=== PATIENT | female | born 1970 | race Caucasian/White ===

== ENCOUNTER 2018-06-05 10:25 | Inpatient (IN) | payer SELFPAY ==
[2018-06-05] MEDS ORDERED: Ondansetron INJ* 2 MG/ML VIAL IV ONE (10:47)
[2018-06-05] MEDS ORDERED: Morphine INJ* 2 MG/ML 1 ML SYRINGE (TWO MG - NEW SYRINGE VERSION) IV ONE (10:47)
[2018-06-05] MEDS ORDERED: Morphine VIAL* 4 MG/ML VIAL (1 ml vial) IV PRN (10:47)
[2018-06-05] MEDS ORDERED: NS 0.9% 1000 ML* 3,000 ML IV ONE (10:47)
[2018-06-05] MEDS ORDERED: Morphine INJ* 4 MG/ML 1 ML SYRINGE (NEW SYRINGE VERSION) ONE ×2 (10:53→13:45)
--- NOTE | 2018-06-05 10:53 | ED ---
Abdominal Pain/Female - HPI Summary HPI Summary: The pt is a 47 y/o female presenting to [facility] c/o abd pain since 1 day ago worsened today. The constant pain rated 6/10 in severity feels like "like being hit by a bat and radiates to the back. The pt had a positive home test 1 week and went to [facility]. There, they administered 2 tests and found a miscarriage. The pain is aggravated by laying down , sleeping and sitting. She notes vomiting, loss of appetite, fatigue, dyspnea, productive cough, phlegm, sore throat, lightheadedness, dehydration, numbness in the RLE toes and a hardness to palpation in the R breast (hx of breast implants for 15 years). She also reports axillary pain 6 weeks ago that radiates from the fingers but denies diarrhea. - History of Current Complaint Chief Complaint: EDChestPainROMI Stated Complaint: ABD PAIN/BACK PAIN Time Seen by Provider: 06/05/18 10:40 Hx Obtained From: Patient Hx Last Menstrual Period: 3.5 weeks ago Onset/Duration: Lasting Days - 1 day, Still Present, Worse Since - Today morning Timing: Constant Severity Currently: Moderate Pain Intensity: 6 Pain Scale Used: 0-10 Numeric Location: Discrete At: RLQ Radiates: Yes Radiates to: Back Aggravating Factor(s): Other: - laying down, sitting and sleeping Allergies/Adverse Reactions: Allergies Allergy/AdvReac Type Severity Reaction Status Date / Time ibuprofen Allergy Stomach Verified 06/05/18 10:49 Cramps meperidine [From Demerol] Allergy Rash Verified 06/05/18 10:49 PMH/Surg Hx/FS Hx/Imm Hx Previously Healthy: No Endocrine/Hematology History: Reports: Hx Thyroid Disease - underactive thyroid Denies: Hx Diabetes Cardiovascular History: Reports: Hx Hypertension - Unmedicated Denies: Hx Pacemaker/ICD Respiratory History: Reports: Hx Seasonal Allergies Denies: Hx Asthma, Hx Chronic Obstructive Pulmonary Disease (COPD) GI History: Denies: Hx Ulcer Musculoskeletal History: Reports: Hx Back Problems - c5-c6, c6-c7 disk herniations Sensory History: Reports: Hx Hearing Problem - "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 one ear" Denies: Hx Hearing Aid Neurological History: Reports: Hx Headaches Psychiatric History: Denies: Hx Panic Disorder - Surgical History [facility] Infectious Disease History: No Infectious Disease History: Denies: Hx Hepatitis, Hx Human Immunodeficiency Virus (HIV), History Other Infectious Disease, Traveled Outside the [place] in Last 30 Days - Family History Known Family History: Positive: Hypertension - Social History Occupation: Unemployed Lives: With Family Alcohol Use: Occasionally Substance Use Type: Reports: None Substance Use Comment - Amount & Last Used: percocet Smoking Status (MU): Light Every Day Tobacco Smoker Type: Cigarettes Amount Used/How Often: 5 cigarettes/day Have You Smoked in the Last Year: Yes Review of Systems Constitutional: Other - Positive: Loss of appetite, light-headedness, dehydration Positive: Other - Positive: Tenderness to palpatio in the R breast Positive: Sore Throat Positive: Cough - Productive Positive: Abdominal Pain, Vomiting. Negative: Diarrhea Positive: Other - Positive: R axillary pain Positive: Numbness - of the RLE toes All Other Systems Reviewed And Are Negative: Yes Physical Exam - Summary Physical Exam Summary: Appearance: Pt is dehydrated , Well-nourished, lying in bed comfortably Skin: Warm, dry mucous memebranes, no obvious rash Eyes: sclera anicteric, no conjunctival pallor ENT: mucous membranes moist, pharynx appears normal Neck: Supple, nontender Respiratory: Clear to auscultation, no signs of respiratory distress Cardiovascular: Tachycardia noted. No murmurs. Normal distal pulses in tibial and radial bilaterally. Abdomen:RLQ tenderness with guarding , normal active bowel sounds present Musculoskeletal:Good strength and ROM in extremities; Normal elbow strength with flexion and extension Neurological: A&Ox3, awake and alert, mentation is normal, speech is fluent and appropriate Psychiatric: affect is normal, does not appear anxious or depressed Triage Information Reviewed: Yes Vital Signs On Initial Exam: Initial Vitals Temp Pulse Resp BP Pulse Ox 98.1 F 139 18 115/99 98 06/05/18 10:31 06/05/18 10:31 06/05/18 10:31 06/05/18 10:31 06/05/18 10:31 Vital Signs Reviewed: Yes Diagnostics - Vital Signs Vital Signs Temp Pulse Resp BP Pulse Ox 06/05/18 10:41 14 153/111 06/05/18 10:31 98.1 F 139 18 115/99 98 - Laboratory Result Diagrams: 06/06/18 06:11 06/06/18 06:11 Lab Statement: Any lab studies that have been ordered have been reviewed, and results considered in the medical decision making process. - Ultrasound No standard instances Ultrasound Interpretation Completed By: Radiologist - Gallbladder US IMPRESSION : ALONG THE MEDIAL MARGIN OF THE GALLBLADDER THERE APPEARS TO BE A SMALL FLUID COLLECTION WHICH COULD BE DUE TO CHOLECYSTITIS. THERE ARE NO GALLSTONES OR EVIDENCE OF PATHOLOGIC BILIARY DUCT OBSTRUCTION. The ED physician reviewed this radiology report. - EKG 10:55 Cardiac Rate: Tachycardia - 124 bpm EKG Interpretation: This is an otherwise normal EKG Abdominal Pain Fem Course/Dx - Course Course Of Treatment: A 47 year-old F presents to the ED with a CC of abd pain since 1 day ago worsened today. She had a positive home test 1 week ago and went to [facility]. There, they administered 2 tests and found a miscarriage. The pain is aggravated by laying, sleeping and sitting. She notes vomiting, loss of appetite, fatigue, dyspnea, productive cough, sore throat, lightheadedness, dehydration, numbness in the RLE toes and hardness to palpation in the R breast (hx of breast implants for 15 years). She also reports R axillary pain 6 weeks ago that radiates from the fingers but denies diarrhea. A physical exam revealed RLQ tenderness with guarding; dehydration; dry mucous membranes; tachycardia; lungs clear to auscultation; good strength and ROM in extremities , and normal elbow strength with flexion and extension. An EKG reveals tachycardia but is otherwise normal. A gall bladder US reveals fluid accumulation along the medial margin of the gallbladder which could be due to cholecystitis. There are no gall stones or evidence of pathologic biliary duct. / In the ED course, pt was given N.s 0.9% 3000 ml IV, Morphine 4mg twice, and Ondansetron 8mg IV which improved the symptoms. I discussed the care of the pt with Dr. Hudson MD ( Street Inspector) who recommended admitting. Dr. Isela MD (hospitalist) agreed to admit. The patient will be admitted with a final Dx of pancreatitis. The pt is agreeable with this plan. Allergies noted. - Diagnoses Provider Diagnoses: Pancreatitis - Provider Notifications Discussed Care Of Patient With: Tiara Treviño - Street Inspector Time Discussed With Above Provider: 14:18 Instructed by Provider To: Admit As Inpatient - Dr. Treviño recommended admiting the pt for pancreatitis. Discharge - Sign-Out/Discharge Documenting (check all that apply): Patient Departure - Admit - Discharge Plan Condition: Stable Disposition: ADMITTED TO [facility] - Billing Disposition and Condition Condition: STABLE Disposition: Admitted to [facility] - Attestation Statements Document Initiated by Kaelyne: Yes Documenting Scribe: Emy Lincoln Provider For Whom Jim is Documenting (Include Credential): Dr. Rivas Blake MD Scribe Attestation: Emy Phipps , scribed for Dr. Rivas Blake MD on 06/06/18 at 1441. Scribe Documentation Reviewed: Yes Provider Attestation: The documentation as recorded by the Emy thompson accurately reflects the service I personally performed and the decisions made by me, Dr. Rivas Blake MD
[2018-06-05 11:12] LABS: ABS Basophils 0.1 10^3/ul (0-0.2); ABS Eosinophils 0.1 10^3/ul (0-0.6); ABS Lymphocytes 1.2 10^3/ul (1.0-4.8); ABS Monocytes 0.5 10^3/ul (0-0.8); ABS Neutrophils 6.3 10^3/ul (1.5-7.7); ABS Nucleated RBC 0 10^3/ul; Eosinophil % 0.7 % (0-6); Hematocrit 42 % (35-47); Mean Corpuscular HGB Conc 36 g/dl (31-36); Mean Corpuscular Hemoglobin 37 pg (27-31); Mean Corpuscular Volume 103 fL (80-97); Mean Platelet Volume 7.6 um3 (7.4-10.4); Nucleated Red Blood Cells % 0.2; Platelet Count 198 10^3/ul (150-450); Red Blood Count 4.08 10^6/ul (4.00-5.40); Red Cell Distribution Width 13 % (10.5-15); White Blood Count 8.1 10^3/ul (3.5-10.8)
--- NOTE | 2018-06-05 12:11 | RAD ---
HISTORY: Right upper quadrant pain and emesis COMPARISONS: None TECHNIQUE: Multiple transverse and longitudinal ultrasound images were obtained of the right upper quadrant. FINDINGS: LIVER: The liver is normal in dimensions and echogenicity. Normal hepatic and portal venous blood flow is duplicated with color flow imaging. There is no gross intrahepatic biliary duct dilatation. GALLBLADDER AND EXTRAHEPATIC BILIARY DUCT: There are no stones visualized in the gallbladder lumen. The gallbladder wall measures 2 mm in thickness. There is anechoic and avascular fluid external to the gallbladder lumen along the medial margin of the gallbladder (image 50 of 80). The common bile duct measures a maximum diameter of 5 mm. PANCREAS: The portions of the pancreas not obscured by bowel gas are normal in appearance. RIGHT KIDNEY: The right kidney is normal in size, morphology and echogenicity. AORTA AND IVC: The visualized portions are normal in appearance and not pathologically dilated. IMPRESSION: ALONG THE MEDIAL MARGIN OF THE GALLBLADDER THERE APPEARS TO BE A SMALL FLUID COLLECTION WHICH COULD BE DUE TO CHOLECYSTITIS. THERE ARE NO GALLSTONES OR EVIDENCE OF PATHOLOGIC BILIARY DUCT OBSTRUCTION.
[2018-06-05 14:05] LABS: Urine Appearance Clear; Urine Blood Negative (Negative); Urine Color Colorless; Urine Ketones Negative (Negative); Urine Protein Negative (Negative); Urine Specific Gravity 1.002 (1.010-1.030); Urine Urobilinogen Negative (Negative)
[2018-06-05] MEDS ORDERED: Thiamine IV 100 MG, Folic Acid IV* 1 MG, Multiple Vitamin IV ADULT* 10 ML in NS 0.9% 10... IV ONE (15:15)
[2018-06-05] MEDS ORDERED: Ondansetron INJ* 2 MG/ML VIAL IV PRN (15:15)
[2018-06-05] MEDS ORDERED: Acetaminophen TAB* 325 MG PO PRN (15:15)
[2018-06-05] MEDS ORDERED: LORazepam INJ* 2 MG/ML 1 ML VIAL IV PUSH SCH (16:00)
[2018-06-05] MEDS ORDERED: Pantoprazole IV* 40 MG IV SCH (16:00)
[2018-06-05] MEDS: Morphine VIAL* 4 MG/ML VIAL (1 ml vial) IV PRN ×2 (16:16→21:50)
[2018-06-05] MEDS: NS 0.9% 1000 ML* 1,000 ML IV SCH ×2 (16:16→22:32)
[2018-06-05 17:33] LABS: INR 0.82 (0.77-1.02)
[2018-06-05] MEDS ORDERED: Iohexol 300* (CONTRAST) 10 ML SDV IV ONE ×2 (18:31→19:52)
--- NOTE | 2018-06-05 19:58 | RAD ---
EXAM: CT Head Without Intravenous Contrast CLINICAL HISTORY: 47 years old, female; Pain; Headache; Headache not specified; Additional info: AMARAL TECHNIQUE: Axial computed tomography images of the head/brain without intravenous contrast. All CT scans at this facility use at least one of these dose optimization techniques: automated exposure control; mA and/or kV adjustment per patient size (includes targeted exams where dose is matched to clinical indication); or iterative reconstruction. COMPARISON: No relevant prior studies available. FINDINGS: Brain: No intracranial hemorrhage or extra-axial fluid collection. No evidence of mass effect or midline shift. Jaramillo-white matter differentiation is normal. Ventricles: Unremarkable. No ventriculomegaly. Bones/joints: Unremarkable. No acute fracture. Soft tissues: Unremarkable. Sinuses: Unremarkable as visualized. No acute sinusitis. Mastoid air cells: Unremarkable as visualized. No mastoid effusion. IMPRESSION: No acute intracranial pathology. To contact [facility] with a general question: [facility] - [phone] For direct physician to physician contact: Physician Hotline - [phone] [facility] ([facility] Facility ID #[id number])
--- NOTE | 2018-06-05 20:11 | RAD ---
EXAM: CT Abdomen and Pelvis With Intravenous Contrast CLINICAL HISTORY: 47 years old, female; Pain; Abdominal pain; Generalized; Additional info: Abd pain TECHNIQUE: Axial computed tomography images of the abdomen and pelvis with intravenous contrast. All CT scans at this facility use at least one of these dose optimization techniques: automated exposure control; mA and/or kV adjustment per patient size (includes targeted exams where dose is matched to clinical indication); or iterative reconstruction. Coronal and sagittal reformatted images were created and reviewed. CONTRAST: 85 mL of OMNIPAQUE 300 administered intravenously. COMPARISON: GB US GALL BLADDER 06/05/2018 11:36 AM FINDINGS: Lung bases: Unremarkable. No mass. No consolidation. ABDOMEN: Liver: Diffuse hepatic steatosis. Approximately 3 cm nonspecific area of decreased attenuation within the right hepatic lobe adjacent to the gallbladder fossa and falciform ligament. Gallbladder and bile ducts: Unremarkable. No calcified stones. No ductal dilation. Pancreas: Mild fat stranding surrounding the pancreas. No ductal dilation. Spleen: Unremarkable. No splenomegaly. Adrenals: Unremarkable. No mass. Kidneys and ureters: Unremarkable. No solid mass. No hydronephrosis. Stomach and bowel: Unremarkable. No obstruction. No mucosal thickening. PELVIS: Appendix: The appendix is normal. Bladder: Unremarkable. No mass. Reproductive: Unremarkable as visualized. ABDOMEN and PELVIS: Intraperitoneal space: Small degree of intra-abdominal ascites. No free air. Bones/joints: No acute fracture. No dislocation. Soft tissues: Unremarkable. Vasculature: Unremarkable. No abdominal aortic aneurysm. Lymph nodes: Unremarkable. No enlarged lymph nodes. IMPRESSION: 1. Mild fat stranding surrounding the pancreas. Findings could represent early acute pancreatitis. Correlate clinically with laboratory findings. 2. Small degree of intra-abdominal ascites of unknown etiology. 3. Approximately 3 cm nonspecific area of decreased attenuation within the right hepatic lobe adjacent to the gallbladder fossa and falciform ligament. Etiology of this lesion is unknown, though this could represent a focus of marked fatty infiltration in a liver demonstrating mild diffuse steatosis. Recommend correlation with liver enzymes, and if clinically indicated further evaluation with nonemergent MRI abdomen. To contact [facility] with a general question: [facility] - [phone] For direct physician to physician contact: Physician Hotline - [phone] [facility] ([facility] Facility ID #[id number])
[2018-06-05] MEDS ORDERED: Mouth Piece, Nicotine* 1 EACH CARTRIDGE INH PRN ×2 (20:20)
--- NOTE | 2018-06-05 20:47 | HP ---
HISTORY AND PHYSICAL: DATE OF ADMISSION: 06/05/18 PRIMARY CARE PROVIDER: None. ATTENDING PHYSICIAN WHILE IN THE HOSPITAL: Hong Weiss MD * (report dictated by Richard Escalera NP) CHIEF COMPLAINT: Abdominal pain radiating to the back. HISTORY OF PRESENT ILLNESS: Ms. Dubose is a 47-year-old female patient. She has a history of chronic pain, history of anemia in the past who presents today stating that 2 to 3 weeks ago she noticed that she was having some nausea. She was not feeling well. She was having vomiting. She checked a test at home, it was positive. She decided to take antibiotics because she thought she was feeling unwell. She then noticed spotting. [facility]; she had two tests there which were negative and it was felt that she probably had a miscarriage; however, despite this, she has no longer had any spotting and again this was like 3 weeks ago, but over the last several days she has had worsening epigastric abdominal pain going into her back with associated nausea and vomiting, unable to keep anything down. Food is making the pain exquisitely worse. She denied having any fevers or chills. She denied having any chest pain. She does admit to having occasional cough and rhinorrhea, but no fevers that she is ultimately aware of. She states she has been feeling bloated and distended but she states that she has been drinking alcohol to try to cope with the pain. She initially told me that she drank alcohol a few days ago with her brother for her birthday and then she told me she drank alcohol last night to help cope with the pain. She states she does not drink alcohol daily. She denies having any tarry or black stool. She denied having any coffee-ground emesis. She was concerned because of the abdominal discomfort and came into the ED today, was found to have an alcohol level of 143. In addition to this, was also noted to have a lipase of 2233. Because of these findings, we were asked to evaluate for admission. She also does admit to having a headache intermittently for the past year. She describes that she feels like her brain is being pushed out of her ears. Denies having thunderclap headache, but does state that she has been having a significant headache. PAST MEDICAL HISTORY: 1. She admits to having history of chronic back pain. 2. Anemia. PAST SURGICAL HISTORY: She has had breast implants. MEDICATIONS: Home meds were denied. ALLERGIES TO MEDICATIONS: Include IBUPROFEN and DEMEROL. FAMILY HISTORY: She states her mother's history is unknown. Father had a history of COPD, hypertension, diabetes. SOCIAL HISTORY: She is a half a pack a day smoker for about 15 years. She states she does not drink alcohol daily, but she has been lately due to pain. Surrogate decision maker is her father. REVIEW OF SYSTEMS: No documented fevers noted here. She denied any significant weight change. No double vision. No ear discharge. There was rhinorrhea. No sore throat. No thyroid enlargement. She denied having any chest pain. There was no orthopnea, no nocturnal dyspnea. There was abdominal pain. There was nausea and vomiting. No dysuria, no frequency. No seizure, no loss of consciousness. No pruritus, no skin ulcerations. Review of 14 systems was completed, all others negative. PHYSICAL EXAMINATION GENERAL: At this time, Ms. Dubose is a 47-year-old female patient. She does appear to be unkempt. She appears to be older than stated age. She is sitting in the ED stretcher. She does not appear to be in any acute distress. VITAL SIGNS: Blood pressure 144/94, pulse 97, respirations 18, O2 saturation is 95%, temperature 98.3. HEENT: Head: Atraumatic and normocephalic. Eyes: EOMs are intact. Sclerae anicteric and not pale. Throat: Oral mucosa appears to be dry. No oropharyngeal erythema. NECK: Supple. LUNGS: Clear to auscultation bilaterally. No wheezes, rales, or rhonchi. HEART: Sounds S1, S2. She had a regular rate and rhythm. There were no murmurs, rubs, or gallops. ABDOMEN: Soft. It was flat. There was tenderness in the epigastric area. Bowel sounds were present. EXTREMITIES: Pulses were 2+ throughout. She had no peripheral edema. NEUROLOGICAL: She is awake, alert, oriented x3. She had no gross focal deficits. SKIN: Intact. LABORATORY DATA/DIAGNOSTIC STUDIES: Labs are revealing a WBC of 8.1, RBC of 4.08, hemoglobin of 15.0, hematocrit of 43, her MCV and MCH are elevated, platelet count is 198,000. Her sodium was 133, potassium 3.2, chloride of 93, bicarb 23, BUN was 4, creatinine of 0.69, glucose was 86. Lactate 2.1. Calcium 9.4. Total bili 0.7, AST 90, ALT 50, alk phos 105. Troponin 0. Albumin of 4.2. Lipase was 2232. Urine was obtained, it was negative. Toxicology was positive for alcohol of 143. She had a gallbladder ultrasound obtained today, which revealed impression: Along the medial margin of the gallbladder, there appears to be a small fluid collection, which could be due to cholecystitis. There are no gallstones or evidence of pathologic biliary duct obstruction. She had an EKG obtained today showing sinus tachycardia, rate of 124 with PVC, she had no ST elevation or T-wave inversions noted. Old medical records were reviewed. ASSESSMENT AND PLAN: Ms. Dubose is a 47-year-old female patient coming in to the ED today with complaints of abdominal pain with associated nausea and vomiting. On evaluation today, was found to have acute pancreatitis based on labs. She will be admitted under inpatient status for: 1. Abdominal pain. I suspect the etiology of this is probably pancreatitis, which I suspect the etiology is probably secondary to alcoholism. I do note that her MCV is elevated and her MCH is elevated. Her LFTs are 2:1 ratio consistent with alcoholism. Alcohol level this morning, at 11 o'clock in the morning was 143. I suspect that she may be drinking more than she is admitting to, so I have put her empirically on the [facility] protocol. My plan would be to get a CT abdomen and pelvis to better define the collection of fluid near the gallbladder. As this is concern for abscess or could possibly be a pseudocyst, again I would like to get further evaluation. If needed, I will get General Surgery involved, which will offer pain control. I have offered alcohol cessation and smoking cessation information for the patient and will continue with aggressive fluids and no antibiotics currently. 2. Anemia. H and H is stable. 3. Recent question of . I am checking a beta-hCG. Her pain does not appear to be similar to like an ectopic, but at this point again we will get a beta-hCG. If this is positive, then we will certainly get pelvic ultrasound and get NAIL WELTER involved, but I think the pain she is having in her abdomen is most likely pancreatitis 4. Headaches. She has been having headaches intermittently for the last year. She states it feels like her brain is being pushed out of her head. She denies having any thunderclap type headaches, but just to be safe, I will check a CT of the brain as well. 5. Chronic back pain. We will order p.r.n. Tylenol and morphine. 6. DVT prophylaxis. She is moderate risk. I did order heparin subcu. 7. Code status. Full code. 8. Fluids, electrolytes, and nutrition. She can be n.p.o.. TIME SPENT: On admission 60 minutes, greater than half the time spent face-to- face with the patient obtaining my history and physical; other half of the time spent going over the plan of care with the patient and implementing plan of care. I discussed the plan of care with my attending, Dr. Weiss; he is in agreement. RICHARD ESCALERA NP [id number]/[facility] #: [id number] TANIYA
[2018-06-05] MEDS: Heparin VIAL(*) 5000 UNITS/ML VIAL (FIVE THOUSAND) SUBCUT SCH (21:50)
[2018-06-05] MEDS: Nicotine Inhaler* 10 MG AMP INH PRN (21:50)
[2018-06-05] MEDS ORDERED: KCL 10 MEQ/50 ML IVPREMIX* 20 MEQ/100 ML BAG ONE (22:25)
[2018-06-05] MEDS: KCL 10 MEQ/50 ML IVPREMIX* 10 MEQ/50 ML BAG IV SCH ×2 (22:32→23:53)
[2018-06-06] MEDS ORDERED: KCL 10 MEQ/50 ML IVPREMIX* 10 MEQ/50 ML BAG ONE (01:04)
[2018-06-06] MEDS: KCL 10 MEQ/50 ML IVPREMIX* 10 MEQ/50 ML BAG IV SCH (01:06)
[2018-06-06] MEDS: Nicotine Inhaler* 10 MG AMP INH PRN (02:28)
[2018-06-06] MEDS: Morphine VIAL* 4 MG/ML VIAL (1 ml vial) IV PRN ×2 (02:44→07:28)
[2018-06-06] MEDS: Heparin VIAL(*) 5000 UNITS/ML VIAL (FIVE THOUSAND) SUBCUT SCH (05:36)
[2018-06-06 06:29] LABS: ABS Basophils 0.1 10^3/ul (0-0.2); ABS Eosinophils 0 10^3/ul (0-0.6); ABS Monocytes 0.4 10^3/ul (0-0.8); ABS Neutrophils 4.3 10^3/ul (1.5-7.7); ABS Nucleated RBC 0 10^3/ul; Eosinophil % 0.8 % (0-6); Hematocrit 32 % (35-47); Hemoglobin 11.2 g/dl (12.0-16.0); Lymphocyte % 17.3 % (25-47); Mean Corpuscular HGB Conc 35 g/dl (31-36); Mean Corpuscular Hemoglobin 37 pg (27-31); Mean Corpuscular Volume 105 fL (80-97); Mean Platelet Volume 8.4 um3 (7.4-10.4); Nucleated Red Blood Cells % 0.2; Platelet Count 131 10^3/ul (150-450); Red Blood Count 3.05 10^6/ul (4.00-5.40); Red Cell Distribution Width 13 % (10.5-15); White Blood Count 5.8 10^3/ul (3.5-10.8)
[2018-06-06 06:35] LABS: INR 0.88 (0.77-1.02)
[2018-06-06 06:49] LABS: EGFR Non-African American 136.6 (>60)
[2018-06-06] MEDS ORDERED: Magnesium Hydroxide LIQ* 30 ML UDC PO PRN (07:23)
[2018-06-06] MEDS ORDERED: Docusate CAP* 100 MG PO PRN (07:23)
[2018-06-06] MEDS ORDERED: Senna TAB PO PRN (07:23)
[2018-06-06] MEDS: NS 0.9% 1000 ML* 1,000 ML IV SCH (07:29)
[2018-06-06 07:41] VITALS: BP 145/79
[2018-06-06] MEDS ORDERED: Thiamine TAB* 100 MG TAB PO SCH (09:00)
[2018-06-06] MEDS ORDERED: Folic Acid TAB* 1 MG PO SCH (09:00)
[2018-06-06] MEDS ORDERED: Multivitamins/Minerals TAB PO SCH (09:00)
[2018-06-06] MEDS ORDERED: Morphine VIAL* 4 MG/ML VIAL (1 ml vial) IV PRN (09:57)
[2018-06-06] MEDS ORDERED: Cetirizine* 10 MG TAB PO SCH (10:00)
--- NOTE | 2018-06-07 07:19 | DS ---
CC: Dr. Zenon Fitzpatrick * DISCHARGE SUMMARY: DATE OF ADMISSION: 06/05/18 DATE OF DISCHARGE: 06/06/18 PRIMARY CARE PROVIDER: Dr. Zenon Fitzpatrick. MY ATTENDING WHILE IN THE HOSPITAL: Dr. Sammi Hoyos.* (DICTATED BY CHRISTOS TRUONG) PRIMARY DISCHARGE DIAGNOSES: 1. Pancreatitis, likely alcohol related. 2. Possible cervical radiculopathy. 3. Probable alcoholism. SECONDARY DISCHARGE DIAGNOSES: History of chronic back pain and anemia. STUDIES DONE WHILE IN THE HOSPITAL: Electrocardiogram from 06/05/18 shows sinus tachycardia, single PVC, no enlargement or hypertrophy, possible biatrial enlargement, rate of 124, QTc 438, no other significant abnormalities. Gallbladder ultrasound from 06/05/18 read as, along the medial margin of the gallbladder there appears to be a small fluid collection which could be due to cholecystitis. There are no gallstones or evidence of pathologic biliary duct obstruction. Abdomen and pelvis CT from 06/05/18 read as mild fat stranding surrounding pancreas. Findings could represent early acute pancreatitis. Correlate clinically with laboratory findings. Small degree of intraabdominal ascites of unknown etiology, approximately 3 cm area of decreased attenuation of the right hepatic lobe, adjacent to the gall-bladder fossa and falciform ligament. Etiology of lesion unknown, although this could represent a focus of marked fatty infiltration of liver demonstrating mild diffuse steatohepatitis. Recommend correlation with liver enzymes if clinically indicated, further evaluation with non-emergent MRI of abdomen. MEDICATIONS AT DISCHARGE: 1. Tylenol 650 mg p.o. q.4 hours as needed. 2. Docusate 100 mg p.o. b.i.d. as needed. 3. Multivitamin 1 tab p.o. daily. 4. Oxycodone 5 mg p.o. q.4 hours as needed. 5. Thiamine 100 mg p.o. daily. 6. Lorazepam 0.5 mg p.o. q.6 hours as needed. HOSPITAL COURSE: This is a brief summary of patient's presentation. For more details, please see history and physical from Jayy Solis NP, on 06/05/18. In brief, the patient is a 47-year-old female with past medical history significant for the above who presented to the emergency department for 2 or 3 weeks of nausea, vomiting, upper epigastric pain. She recently had a positive test with some associated vaginal spotting. The patient was believed to have had a miscarriage and was started on antibiotics for her prophylaxis of chorioamnionitis due to positive culture results that she could not elucidate on. The patient states that she has been having pain radiating down her right arm and from her right breast for approximately 3 weeks and had been drinking quite a bit of alcohol to help compensate for this as she does not have any pain medications. The patient does not have any other concerns, but states she does not drink alcohol daily, although she amended this saying that she did drink alcohol daily for 3 weeks prior to her admission. The patient came to the emergency department due to worsening abdominal discomfort. This discomfort was made worse by eating. She was unable to tolerate oral intake at home. The patient was found to have a lipase over 2000 and was admitted to the hospital. The patient also had a high anion gap, high lactic acid, low potassium and low magnesium. The patient had her magnesium, potassium replaced. The patient had significant decrease in her pain overnight. The patient was able to tolerate a clear liquid diet. The patient's lipase declined from 2200 to 1200. The patient was compliant with a clear liquid diet. The patient on 06/06/18 stated she had inadequate pain control from her morphine, but mainly related this to her right arm pain. The patient was fixated on having a cigarette and when told that she could not leave the hospital for a cigarette, declined all nicotine replacements and stated that she needed to get home to be with her dad and smoke cigarette and that she would not stay. The patient had the risks explained to her of worsening pancreatitis, possible alcohol withdrawal including seizure and she said she understood these and was willing to accept these risks and was discharged against medical advice on 06/06/18 with oxycodone for pain relief and lorazepam for anxiety and possible withdrawal symptoms. The patient was encouraged to resume her antibiotics that she previously had been on for chorioamnionitis when she got home. PHYSICAL EXAM ON THE DAY OF DISCHARGE: General: The patient is a 47-year-old female who appears older than stated age, sitting comfortably in bed, in no acute distress. Vital signs at the time of discharge: Temperature 97.1, pulse rate 80, respiratory rate 14, oxygen saturation 100% on room air, blood pressure 145/79. HEENT: Head: Normocephalic, atraumatic, sclerae anicteric. No conjunctival injection. Nasal mucosa moist. Oral mucosa moist. No pharyngeal erythema, discharge, or exudates. Neck: Supple, nontender. No lymphadenopathy. No carotid bruit auscultated. No JVD. Cardiac: Regular rate and rhythm. No clicks, murmurs, gallops, rubs. Pulses 2+ bilaterally in dorsalis pedis, posterior tibialis, and radial areas. Respiratory: Clear to auscultation bilaterally. No wheezes, rales, or rhonchi. Good air exchange bilaterally. Abdomen: Soft, tender to palpation throughout. No rebound or guarding. Tenderness to palpation over the liver and normoactive bowel sounds present in all 4 quadrants. Genitourinary: No suprapubic or CVA tenderness. Skin: Clean, dry and intact. No rash. Neuro: Cranial nerves II through XII intact. No focal deficits. Alert and oriented x3. LABORATORY DATA: On the day of discharge, white blood cell count 5.8, hemoglobin 11.2, hematocrit 32, MCV 105, MCH 37, platelet count 131. INR 0.88. Sodium 135, potassium 4.0, chloride 105, carbon dioxide 24, anion gap 6, creatinine 0.49, glucose 84, calcium 8.2. Bilirubin 0.5, AST 41, ALT 32, protein 5.4. Triglycerides 53, cholesterol 181, LDL cholesterol 57, HDL cholesterol 113.1, lipase 1208, B12 433, folate greater than 20. DISCHARGE PLAN: The patient will be discharged to home against medical advice. The patient has been informed of the risks including worsening pancreatitis and has been encouraged to maintain a clear liquid diet and advance as tolerated based on abdominal pain. The patient has also been recommended to avoid alcohol , which she states she will. The patient has been given a prescription for Ativan to help control possible withdrawal symptoms. The patient will have oxycodone for pain control. The patient is to follow up closely with her primary care provider. The patient should return to the hospital for alarming symptoms such as passing out, severely increased abdominal pain, chest pain, shortness of breath or seizures. TIME SPENT: Approximately 60 minutes were spent on the discharge of the patient , 30 of which were spent [id number] with the patient, obtaining history and physical, discussing treatment plan, and discussing the risks of leaving against medical advice. CHRISTOS TRUONG [id number]/ALBERTINA #: [id number] TANIYA
== END 2018-06-06 10:40 | disposition left against medical advice (07) | DRG 439 ==
LOC: ED 10:25 → MED 15:10
PROVIDERS: ADMIT Internal Medicine; ATTEND Hospitalist
DX: K85.20 Alcohol induced acute pancreatitis without necrosis or infection (principal); R18.8 Other ascites; I10 Essential (primary) hypertension; J30.2 Other seasonal allergic rhinitis; H91.90 Unspecified hearing loss, unspecified ear; F17.210 Nicotine dependence, cigarettes, uncomplicated; G89.29 Other chronic pain; E87.6 Hypokalemia; E83.42 Hypomagnesemia; F41.9 Anxiety disorder, unspecified; I49.3 Ventricular premature depolarization; R00.0 Tachycardia, unspecified; R51 Headache; M54.9 Dorsalgia, unspecified; M50.122 Cervical disc disorder at C5-C6 level with radiculopathy; F10.20 Alcohol dependence, uncomplicated; Y90.6 Blood alcohol level of 120-199 mg/100 ml; D64.9 Anemia, unspecified; K75.81 Nonalcoholic steatohepatitis (NASH); Z88.6 Allergy status to analgesic agent; Z88.8 Allergy status to other drugs, medicaments and biological substances; Z82.49 Family history of ischemic heart disease and other diseases of the circulatory system; Z83.3 Family history of diabetes mellitus; Z82.5 Family history of asthma and other chronic lower respiratory diseases; Z23 Encounter for immunization; Z98.86 Personal history of breast implant removal
CPT/HCPCS: 36415; 70450; 74177; 76705; 80048; 80053; 80061; 80076; 80320; 81003; 82607; 82746; 83605; 83690; 83735; 84484; 84702; 85025; 85610; 85730; 90686; 93005; 99284; A9270-GY; G0480; J1644; J2270; J2405; J3411; J3480; Q9967

== ENCOUNTER 2018-12-29 15:09 | Inpatient (IN) | payer SELFPAY ==
--- NOTE | 2018-12-29 15:46 | ED ---
Abdominal Pain/Female - HPI Summary HPI Summary: This patient is a 48 year old F presenting to [facility] with a chief complaint of abdominal pain and CP since last night. The patient rates the pain 10/10 in severity. Patient reports warmth in her stomach, vomiting, dry skin, and back pain. Patient denies hematemesis. The patient does not see a doctor regularly. She drank last night before the symptoms started. PMHX Pancreatitis. No PMHx abdominal surgery. SHX tobacco use, EtOH use. FHX pancreatic CA. Vitals in the room: HR 117 bpm, BP 167/93. - History of Current Complaint Chief Complaint: EDChestPainROMI Stated Complaint: ABD PAIN PER EMS/VOMITING PER PT Time Seen by Provider: 12/29/18 15:39 Hx Obtained From: Patient Hx Last Menstrual Period: 3.5 weeks ago Onset/Duration: Sudden Onset, Lasting Days Timing: Constant Severity Currently: Severe Pain Intensity: 10 Pain Scale Used: 0-10 Numeric Associated Signs and Symptoms: Positive: Chest Pain, Back Pain, Vomiting Allergies/Adverse Reactions: Allergies Allergy/AdvReac Type Severity Reaction Status Date / Time ibuprofen Allergy Stomach Verified 12/29/18 15:12 Cramps meperidine [From Demerol] Allergy Rash Verified 12/29/18 15:12 PMH/Surg Hx/FS Hx/Imm Hx Endocrine/Hematology History: Reports: Hx Thyroid Disease - underactive thyroid , Other Endocrine/Hematological Disorders - pancreatitis Denies: Hx Diabetes Cardiovascular History: Reports: Hx Hypertension - Unmedicated Denies: Hx Pacemaker/ICD Respiratory History: Reports: Hx Seasonal Allergies Denies: Hx Asthma, Hx Chronic Obstructive Pulmonary Disease (COPD) GI History: Denies: Hx Ulcer Musculoskeletal History: Reports: Hx Back Problems - c5-c6, c6-c7 disk herniations Sensory History: Reports: Hx Contacts or Glasses, Hx Hearing Problem - "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 one ear" Denies: Hx Hearing Aid Opthamlomology History: Reports: Hx Contacts or Glasses Neurological History: Reports: Hx Headaches Psychiatric History: Denies: Hx Panic Disorder - Surgical History Surgery Procedure, Year, and Place: Breast augmentation-[place] Infectious Disease History: No Infectious Disease History: Denies: Hx Hepatitis, Hx Human Immunodeficiency Virus (HIV), History Other Infectious Disease, Traveled Outside the [place] in Last 30 Days - Family History Known Family History: Positive: Hypertension, Other - pancreatic CA - Social History Alcohol Use: Rare Alcohol Amount: 3-4 drinks per day Substance Use Type: Reports: None Substance Use Comment - Amount & Last Used: percocet Smoking Status (MU): Light Every Day Tobacco Smoker Type: Cigarettes Amount Used/How Often: 5 cigarettes/day Have You Smoked in the Last Year: Yes Review of Systems Positive: Chest Pain Gastrointestinal: Negative - hematemesis Positive: Abdominal Pain, Vomiting, Other - "warm stomach" Positive: Myalgia - back pain Positive: Other - dry skin All Other Systems Reviewed And Are Negative: Yes Physical Exam - Summary Physical Exam Summary: Appearance: well appearing, mild to moderate distress. Skin: warm, very dry diffusely, reflects adequate perfusion Head/face: normal Eyes: EOMI, DIANE ENT: mucous membranes moist Neck: supple, non-tender Respiratory: CTA, breath sounds present. Occasional wheezes Cardiovascular: tachycardic, pulses symmetrical Abdomen: epigastric and midline abd pain without a pulsatile abdominal mass. No rebound or guarding. Bowel Sounds: present Musculoskeletal: normal, strength/ROM intact Neuro: normal, sensory motor intact, A&Ox3 Bedside US shows no AAA or hydronephrosis bilaterally Triage Information Reviewed: Yes Vital Signs On Initial Exam: Initial Vitals Temp Pulse Resp BP Pulse Ox 98.2 F 108 22 171/112 99 12/29/18 15:12 12/29/18 15:12 12/29/18 15:12 12/29/18 15:12 12/29/18 15:12 Vital Signs Reviewed: Yes Diagnostics - Vital Signs Vital Signs Temp Pulse Resp BP Pulse Ox 12/29/18 15:12 98.2 F 108 22 171/112 99 - Laboratory Result Diagrams: 12/29/18 15:37 12/29/18 15:37 Lab Statement: Any lab studies that have been ordered have been reviewed, and results considered in the medical decision making process. - CT Abd/Pelvis CT Interpretation Completed By: Radiologist Summary of CT Findings: 1. PERIPANCREATIC INFLAMMATORY CHANGE MOST CONSISTENT WITH ACUTE PANCREATITIS. 2. FATTY INFILTRATION OF THE LIVER. 3. DIFFUSE MUCOSAL THICKENING OF THE COLON SUGGESTIVE OF COLITIS. ED physician has reviewed this radiology report - EKG 15:24 Cardiac Rate: Tachycardia - 104 bpm EKG Rhythm: Sinus Tachycardia ST Segment: Non-Specific Summary of EKG Findings: Right axis deviation, q waves anterior leads Abdominal Pain Fem Course/Dx - Course Course Of Treatment: Patient with epigastric discomfort felt into the back and chest. She has a history of pancreatitis in 2018 and reports only minor alcohol use. However she demonstrates signs of alcoholism including telangiectasias and poor skin color. Her alcohol level here is positive and she has elevation of both liver enzymes and lipase. Her CT scan is consistent with acute pancreatitis and also colitis. Hospitalist was contacted and will admit for further. Patient is made nothing by mouth and treated for discomfort. - Diagnoses Differential Diagnosis: Positive: Constipation, Diverticulitis, Hepatitis, Irritable Bowel Syndrome, Pancreatitis, Peptic Ulcer Disease, Renal Colic, Urinary Tract Infection Provider Diagnoses: Acute pancreatitis, Alcoholism /alcohol abuse - Provider Notifications Discussed Care Of Patient With: Zenon Griffith Time Discussed With Above Provider: 16:45 Instructed by Provider To: Admit As Inpatient Discharge - Sign-Out/Discharge Documenting (check all that apply): Patient Departure - admission Patient Received Moderate/Deep Sedation with Procedure: No - Discharge Plan Condition: Fair Disposition: ADMITTED TO [facility] - Billing Disposition and Condition Condition: FAIR Disposition: Admitted to [facility] - Attestation Statements Document Initiated by Scribe: Yes Documenting Scribe: Bogdan Harmon Provider For Whom Scribe is Documenting (Include Credential): Howard Bernard MD Scribe Attestation: IBogdan, scribed for Howard Bernard MD on 12/29/18 at 1841. Scribe Documentation Reviewed: Yes Provider Attestation: The documentation as recorded by the Bogdan thompson accurately reflects the service I personally performed and the decisions made by , Howard Bernard MD Status of Scribe Document: Viewed
[2018-12-29] MEDS ORDERED: NS 0.9% 1000 ML** 1,000 ML IV ONE (15:54)
[2018-12-29] MEDS ORDERED: Ondansetron INJ* 2 MG/ML VIAL IV ONE (15:56)
[2018-12-29] MEDS ORDERED: HYDROmorphone INJ1* 1 MG/ML SYRINGE IV SLOW PU ONE (15:56)
[2018-12-29 16:05] LABS: ABS Basophils 0.1 10^3/ul (0-0.2); ABS Eosinophils 0 10^3/ul (0-0.6); ABS Lymphocytes 1.3 10^3/ul (1.0-4.8); ABS Monocytes 0.7 10^3/ul (0-0.8); ABS Neutrophils 6.5 10^3/ul (1.5-7.7); ABS Nucleated RBC 0 10^3/ul; Eosinophil % 0.6 %; Hematocrit 42 % (33-41); Hemoglobin 14.6 g/dL (12.0-16.0); Lymphocyte % 15.6 %; Mean Corpuscular HGB Conc 35 g/dL (31-36); Mean Corpuscular Hemoglobin 36 pg (27-31); Mean Corpuscular Volume 104 fL (80-97); Mean Platelet Volume 8.2 fL (7.4-10.4); Nucleated Red Blood Cells % 0.1; Platelet Count 245 10^3/uL (150-450); Red Blood Count 4.05 10^6 /uL (3.70-4.87); Red Cell Distribution Width 13 % (10.5-15); White Blood Count 8.7 10^3/uL (3.5-10.8)
[2018-12-29 16:14] LABS: ALT 77 U/L (7-52); AST 221 U/L (13-39); Albumin 4.6 g/dL (3.2-5.2); Albumin/Globulin Ratio 1.8 (1-3); Alkaline Phosphatase 111 U/L (34-104); Amylase 188 U/L (29-103); Anion Gap 14 mmol/L (2-11); BUN/Creatinine Ratio 6.3 (8-20); Blood Urea Nitrogen 4 mg/dL (6-24); C Reactive Protein 1.58 mg/L (<8.01); CO2 Carbon Dioxide 20 mmol/L (22-32); Calcium 9.2 mg/dL (8.6-10.3); Chloride 98 mmol/L (101-111); EGFR African American 123.1 (>60); EGFR Non-African American 101.7 (>60); Globulin 2.6 g/dL (2-4); Glucose 98 mg/dL (70-100); Potassium 3.4 mmol/L (3.5-5.0); Sodium 132 mmol/L (135-145); Total Protein 7.2 g/dL (6.4-8.9)
[2018-12-29 16:18] LABS: Troponin I 0.08 ng/mL (<0.04)
[2018-12-29 16:20] LABS: HCG Pregnancy < 0.60 mIU/mL
[2018-12-29 16:21] LABS: INR 0.9 (0.82-1.09)
[2018-12-29] MEDS ORDERED: Iohexol 300* (CONTRAST) 10 ML SDV IV ONE (16:28)
[2018-12-29 16:30] LABS: Alcohol 128 mg/dL (<10); LDH 272 U/L (140-271)
[2018-12-29] MEDS: Aspirin 81 mg CHEW TAB* 81 MG TAB.CHEW PO ONE ×2 (17:45→17:48)
[2018-12-29] MEDS ORDERED: Acetaminophen TAB* 325 MG PO PRN (17:54)
[2018-12-29] MEDS ORDERED: Thiamine IV* 100 MG/ML 2 ML VIAL IM ONE (17:54)
[2018-12-29] MEDS ORDERED: Lorazepam PYXIS KEY PRN (17:58)
[2018-12-29] MEDS ORDERED: LORazepam INJ* 2 MG/ML 1 ML VIAL IV PUSH SCH (18:00)
[2018-12-29 18:38] LABS: Urine Appearance Clear; Urine Bacteria Absent (Absent); Urine Bilirubin Negative (Negative); Urine Blood 1+ (Negative); Urine Color Yellow; Urine Glucose Negative (Negative); Urine Ketones Negative (Negative); Urine Nitrite Negative (Negative); Urine Protein Negative (Negative); Urine Red Blood Cell Trace(0-2/hpf) (Absent); Urine Specific Gravity 1.025 (1.010-1.030); Urine Squamous Epithelial Cell Present (Absent); Urine Urobilinogen Negative (Negative); Urine White Blood Cell Trace(0-5/hpf) (Absent)
[2018-12-29] MEDS: Ondansetron INJ* 2 MG/ML VIAL IV PRN (19:35)
[2018-12-29] MEDS: Morphine INJ* 2 MG/ML 1 ML SYRINGE (TWO MG - NEW SYRINGE VERSION) IV PRN ×3 (19:35→23:35)
[2018-12-29] MEDS: Lactated Ringers 1000 ML Bag* 1,000 ML IV SCH (19:38)
[2018-12-29] MEDS: Enoxaparin(*) 40 MG/0.4 ML SYR SUBCUT SCH (21:01)
[2018-12-29 21:14] LABS: Troponin I 0.13 ng/mL (<0.04)
--- NOTE | 2018-12-29 21:22 | HP ---
ADMISSION HISTORY AND PHYSICAL: DATE OF ADMISSION: 12/29/18 PRIMARY CARE PROVIDER: None. HEALTH PROXY: Her father, Mr. Lazo. CODE STATUS: Full. SOURCE OF INFORMATION: History obtained from interview with the patient and review of medical records. RELIABILITY: From patient is poor to fair; from records is excellent. CHIEF COMPLAINT: Abdominal pain. HISTORY OF PRESENT ILLNESS: This is a 48-year-old female with a past medical history of pancreatitis in June 2018, suspected in the setting of alcohol, who had been in her usual state of health until yesterday afternoon, started to develop left-sided abdominal pain radiating up her left side to her epigastrium , associated with nausea and vomiting, starting around 4 p.m. Overnight it became worse and she has been unable to eat since yesterday. Because of the worsening pain, nausea, and vomiting she presented to the emergency room. She got an elevated lipase and pancreatic stranding on a CAT scan. The patient reports she only drinks 2 to 3 alcoholic beverages per night, but more since yesterday because of the pain, increased reportedly to 3 to 4 drinks overnight. When asked about her last drink, she reports she drank it some time after midnight, but cannot remember. When queried about the patient's alcohol use, she is sometimes internally inconsistent. She does deny history of withdrawal seizures, although was noted to have an alcohol level of 143 when she was here in June. She reports, in respect to her abdominal pain, it feels similar to the last time she had pancreatitis. PAST MEDICAL HISTORY: Includes: 1. Pancreatitis in June 2018. 2. History of alcohol, suspected abuse at last visit and again this visit. 3. History of anemia. 4. Chronic back pain. 5. History of migraines, none recently. 6. Breast implants in 1997. MEDICATIONS: Tylenol. ALLERGIES: MOTRIN and DEMEROL. SOCIAL HISTORY: One-half pack per day for 20 years. Unemployed. 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 FAMILY HISTORY: Father with COPD and hypertension. REVIEW OF SYSTEMS: As per HPI. Otherwise all other systems are negative. PHYSICAL EXAMINATION GENERAL: Sitting up in bed, interactive, pleasant, in no apparent distress. VITAL SIGNS: In the emergency room, blood pressure 125/100, heart rate is 108, respiratory rate is 18 to 24, oxygen saturation 100% on room air, T-max 98.2. HEENT: Oropharynx is clear. She has moist mucous membranes. Sclerae are anicteric. LUNGS: Clear to auscultation. Lungs have symmetric airway expansion with end expiratory wheezes. HEART: She has tachycardic heart rate. No murmurs, rubs or gallops. ABDOMEN: Soft. She has tenderness in the left lower extremity and epigastrium. No distention. No rebound or guarding. Positive bowel sounds. EXTREMITIES: Warm and well perfused, without clubbing, cyanosis or edema. NEUROLOGIC: She is alert and oriented x3. She has no apparent anxiety, agitation or depression. LABORATORY DATA/DIAGNOSTIC STUDIES: Labs reviewed, notable for alcohol level of 128. Total bili 0.6, AST 221, ALT 77, alk phos 111. LDH 278. Troponin I of 0.08. Amylase 188, lipase 781, peaked at 2232 on last admission. Lactic acid 2.0. White blood cell count is 8.7, hemoglobin of 14.6. Data reviewed: CT abdomen and pelvis, impression: Peripancreatic inflammatory changes most consistent with acute pancreatitis, fatty infiltration of liver, diffuse mucosal thickening of the colon suggestive of colitis. There is no loculated fluid collections of the pancreas and the portal vein and splenic veins are patent. Gallbladder is normal without pericholecystic inflammatory changes and the bile ducts are not dilated. EKG is normal sinus rhythm, good R wave progression, sub-millimeter ST depression in V4, otherwise no ST or T-wave changes. ASSESSMENT AND PLAN: This is a 48-year-old female with a past medical history of pancreatitis in June 2018, suspected in the setting of alcohol, returning with abdominal pain in the setting of alcohol. 1. Pancreatitis: Again, suspected in the setting of alcohol; suspect alcohol abuse. We will check lipids in the morning. Not repeating lipase, of little value. Lactated Ringer's at 250 cc per hour standing, n.p.o. status. Repeat labs in the morning. Pain control with morphine 2 mg q.2 hours as needed. Have to be careful of both morphine and alcohol withdrawal as both benzodiazepines and morphine can potentiate sedation. 2. Alcohol withdrawal: Placed on seizure precautions. Placed on WAM protocol , decreased dosing, given aforementioned dosing with morphine. Placed withhold parameters holding for sedation, respiratory rate less than 12 or systolic blood pressure less than 100. 3. Colitis: Noticeable on CAT scan. The patient did indicate she had diarrhea overnight. We will check C. diff colitis. Otherwise, suspect inflammatory changes in the setting of pancreatitis. Can monitor. 4. Increased troponin: Suspect demand. Trend troponin. EKG without ischemic changes. 5. DVT prophylaxis: Lovenox. [id number]/[facility] #: [id number] MTDD
[2018-12-30 00:56] LABS: Troponin I 0.15 ng/mL (<0.04)
--- NOTE | 2018-12-30 01:06 | PN ---
Hospitalist Progress Note Date of Service: 12/30/18 48 yo F with mult issues overnight 1) wanting to leave AMA, wants to eat clears, liberalized 2) Trop elevation, no active CP, EKG on file with no ischemia, likely demand, continue to trend 3) c diff positive-started oral vanco
[2018-12-30] MEDS: Vancomycin CAP* 125 MG CAP PO SCH ×5 (01:35→20:10)
[2018-12-30] MEDS: Morphine INJ* 2 MG/ML 1 ML SYRINGE (TWO MG - NEW SYRINGE VERSION) IV PRN ×9 (01:35→22:35)
[2018-12-30] MEDS: Lactated Ringers 1000 ML Bag* 1,000 ML IV SCH ×3 (01:36→15:14)
[2018-12-30] MEDS: Ondansetron INJ* 2 MG/ML VIAL IV PRN (01:47)
[2018-12-30 06:38] LABS: ABS Basophils 0 10^3/ul (0-0.2); ABS Eosinophils 0 10^3/ul (0-0.6); ABS Lymphocytes 1.2 10^3/ul (1.0-4.8); ABS Monocytes 0.5 10^3/ul (0-0.8); ABS Neutrophils 3.8 10^3/ul (1.5-7.7); ABS Nucleated RBC 0 10^3/ul; Eosinophil % 0.6 %; Hematocrit 37 % (33-41); Hemoglobin 12.5 g/dL (12.0-16.0); Lymphocyte % 21.3 %; Mean Corpuscular HGB Conc 34 g/dL (31-36); Mean Corpuscular Hemoglobin 36 pg (27-31); Mean Corpuscular Volume 105 fL (80-97); Mean Platelet Volume 8.4 fL (7.4-10.4); Nucleated Red Blood Cells % 0; Platelet Count 194 10^3/uL (150-450); Red Blood Count 3.47 10^6 /uL (3.70-4.87); Red Cell Distribution Width 13 % (10.5-15); White Blood Count 5.6 10^3/uL (3.5-10.8)
[2018-12-30 06:57] LABS: Anion Gap 8 mmol/L (2-11); BUN/Creatinine Ratio 5.5 (8-20); Blood Urea Nitrogen 3 mg/dL (6-24); CO2 Carbon Dioxide 26 mmol/L (22-32); Calcium 9.3 mg/dL (8.6-10.3); Chloride 102 mmol/L (101-111); Cholesterol 200 mg/dL; Glucose 105 mg/dL (70-100); HDL Cholesterol 132.4 mg/dL; LDL Cholesterol 55 mg/dL; Magnesium 1.6 mg/dL (1.9-2.7); Potassium 3.5 mmol/L (3.5-5.0); Sodium 136 mmol/L (135-145); Triglycerides 64 mg/dL
[2018-12-30 08:03] LABS: Troponin I 0.13 ng/mL (<0.04)
[2018-12-30] MEDS ORDERED: Nicotine GUM* 2 MG PO PRN (08:50)
[2018-12-30] MEDS ORDERED: Nicotine PATCH 21 MG/24 HR* PATCH TRANSDERM SCH (08:51)
[2018-12-30] MEDS ORDERED: Thiamine TAB* 100 MG TAB PO SCH (09:00)
[2018-12-30] MEDS ORDERED: Folic Acid TAB* 1 MG PO SCH (09:00)
[2018-12-30] MEDS ORDERED: Multivitamins/Minerals TAB PO SCH (09:00)
--- NOTE | 2018-12-30 11:47 | PN ---
Subjective Date of Service: 12/30/18 Interval History: VS: Intermittent tachycardia Labs: Elevated LFT- recheck for trend in a.m.; Elevated Troponin- trending down with no c/o CP, SOB, EKG changes- likely demand Pt states she is feeling a little better. She is tolerating an advancing diet, having had 2 jellos today. Diarrhea has decreased to 2 bouts in last 24h. She continues to have abdominal pain from epigastric that wraps around to back. She states that this is relieved with morphine, but that it wears off appx 30minutes prior to next dose. Currently, she denies CP, SOB, vomiting. She c/ o abdominal pain that she describes as squeezing and occasional nause, although she is tolerating oral intake. It is noted that the patient takes care of her father at home. She is tearful when talking about him and is worried about his health, despite having family with him at the time. She appears to be fixated on this situation, and has a difficult time redirecting back to her health or focusing on questions asked. Also, patient reportedly has no PCP at this time, although she plans to establish care with her father's PCP. Objective Active Medications: Acetaminophen (Tylenol Tab*) 650 mg PO Q4H PRN Enoxaparin Sodium (Lovenox(*)) 40 mg SUBCUT Q24H [facility] Folic Acid (Folvite Tab*) 1 mg PO DAILY [facility] Lactated Ringer's (Lactated Ringers 1000 Ml Bag*) 1,000 mls @ 250 mls/hr IV PER RATE C[facility]RICK Lorazepam (Ativan Inj*) 0 - 3 mg IV PUSH .PER [facility] PROTOCOL [facility]; Protocol Miscellaneous (Ativan Pyxis Jeter) 1 ea N/A .PYXIS JETER PRN Morphine Sulfate (Morphine Inj (Syringe))*) 2 mg IV Q2H PRN Multivitamins/Minerals (Theragran/Minerals Tab*) 1 tab PO DAILY [facility] Nicotine (Nicotine Patch 21 Mg/24 Hr*) 1 patch TRANSDERM DAILY@0800 [facility] Nicotine Polacrilex (Nicotine Gum*) 2 mg PO Q2H PRN Ondansetron HCl (Zofran Inj*) 4 mg IV Q4H PRN Pharmacy Profile Note (Nicotine Patch Removal Note*) 1 note FOLLOW UP 0600 CEDRICK Thiamine HCl (Vitamin B-1 Tab*) 100 mg PO DAILY [facility] Vancomycin HCl (Vancomycin Cap*) 125 mg PO QID [facility] Vital Signs: Temp Pulse Resp BP Pulse Ox 97.7 F 95 18 134/77 99 12/30/18 09:55 12/30/18 09:55 12/30/18 10:38 12/30/18 09:55 12/30/18 09:55 Oxygen Devices in Use Now: None Appearance: Pt is up fixing bed upon entering. She sits to talk. She appears anxious. She is in no acute distress. Eyes: No Scleral Icterus, PERRLA Ears/Nose/Mouth/Throat: NL Teeth, Lips, Gums, Clear Oropharnyx, Mucous Membranes Moist Neck: NL Appearance and Movements; NL JVP, Trachea Midline, No Thyroid Enlargement, Masses Respiratory: Symmetrical Chest Expansion and Respiratory Effort, - - L sided expiratory wheeze. R side faint wheezing throughout Cardiovascular: NL Sounds; No Murmurs; No JVD, RRR, No Edema Abdominal: No Hepatosplenomegaly, - - BS in all quadrants; Extremities: No Edema, No Clubbing, Cyanosis Neurological: Alert and Oriented x 3 Result Diagrams: 12/30/18 06:10 12/30/18 06:10 Microbiology and Other Data: Microbiology 12/29/18 22:45 Stool Gross Appearance - Final Stool C. difficile DNA Amplification - Final 027 Presumptive NEGATIVE Toxigenic C.diff POSITIVE Assess/Plan/Problems-Billing Assessment: Pt is a 48yof with PMHx pancreatitis June 2018, h/o Etoh abuse, h/o anemia, chronic back pain, h/o migraines who presents with pancreatitis, suspected due to alcohol. - Patient Problems (1) Pancreatitis Comment: -Still continues to have abdominal pain, but is tolerating advanced diet -Continue to advance diet as tolerated -Will decrease NS from 250 to 125/h -Continue zofran prn -Continue morphine 2 q2h with plan to decrease tomorrow (2) C. difficile colitis Comment: -Pt reports decrease in liquid stools, still none formed -Continue vancomycin (3) Alcoholism Comment: -Pt is tearful and appears anxious. Has not met perameters for Ativan as of yet ; Ativan dose decreased to avoid sedation with use of morphone + ativan. Will continue to monitor for need for increase in Ativan dose. -Continue WAM and seizure protocols -Continue thiamine, folic acid -Continue to monitor (4) Elevated troponin Comment: -No EKG changes, no chest pain; trending down -Likely demand -Echo ordered for a.m. (5) Tobacco abuse Comment: -Patch 21 mg and gum ordered (6) DVT prophylaxis Comment: -Lovenox 40 (7) Full code status Status and Disposition: Inpatient. Discharge to home when stable.
[2018-12-30] MEDS: Enoxaparin(*) 40 MG/0.4 ML SYR SUBCUT SCH (16:42)
[2018-12-30] MEDS ORDERED: Lactated Ringers 1000 ML Bag* 1,000 ML IV SCH (16:55)
[2018-12-31 00:49] VITALS: BP 123/81
[2018-12-31] MEDS: Morphine INJ* 2 MG/ML 1 ML SYRINGE (TWO MG - NEW SYRINGE VERSION) IV PRN (01:07)
[2018-12-31] MEDS ORDERED: LORazepam TAB(*) 1 MG PO PRN (05:23)
[2018-12-31] MEDS ORDERED: Nicotine Patch Removal NOTE FOLLOW UP SCH (06:00)
--- NOTE | 2018-12-31 06:14 | PN ---
Hospitalist Progress Note Date of Service: 12/31/18 Called to bedside of patient at 5:30Am she was anxious to leave She declines any acute reasons other than wanting to go home and some anxiety in the hospital, offered anxiety meds, she declined I explained the risks of leaving AMA including repeat pancreatitis and ETOH withdrawal unmedicated, she understands these risks and understands she is leaving against medical advice. She is competent to make this decision. IV were removed and pt ambulated to lobby where family member picked her up
--- NOTE | 2018-12-31 08:14 | DS ---
DISCHARGE SUMMARY: DATE OF ADMISSION: 12/29/18 DATE OF DISCHARGE: 12/31/18 DISPOSITION AT DISCHARGE: Against medical advice. PRIMARY CARE PROVIDER: None. PRIMARY DIAGNOSES: 1. Alcohol withdrawal. 2. Pancreatitis. SECONDARY DIAGNOSES: 1. Alcohol use disorder. 2. History of anemia. 3. Chronic back pain. 4. History of migraines. MEDICATIONS ON DISCHARGE: Unchanged, 1. Acetaminophen 650 mg p.o. q.4 hours. 2. Lorazepam 0.5 mg p.o. q.6 hours not prescribed by us. HOSPITAL COURSE AND HISTORY OF PRESENT ILLNESS: A 48-year-old female who presented on 12/29/18 with abdominal pain, nausea, and vomiting in the setting of alcohol use. On admission, lipase was 781 and alcohol level of 128. She was admitted to the hospitalist service for pancreatitis and alcohol with drawal. Further more, there was question of colitis that is seen on CT scan, although she did not arce ve any other signs of that. 1. Pancreatitis. Patient was placed on Lactated ringers, n.p.o. diet and had pain control. Patient advanced her diet quickly to clear liquids and on 12/31/18 at 5 a.m., patient reported her pain had improved and she wanted to leave against medical advice. 2. Alcohol withdrawal. Patient was placed on seizure precautions. She was placed on WAM protocol. She never met criteria to be given Ativan per WAM protocol, although she did take Ativan for anxiet y of staying in the hospitalization. Patient adamantly denies alcohol use disorder and declines abiel tance and treatment for alcohol use disorder upon our discharge. 3. Colitis that is seen on CT scan. Patient had no further diarrhea. Likely, this was secondary to inflammatory changes in the setting of pancreatitis. 4. Increased troponin. This was on admission. It trended down and this was all secondary to demand ischemia. Ultimately, patient decided to leave against medical advice on 12/31/18, stating anxiety and overall generally tired of being in the hospital. We offered patient treatment of anxiety, nicotine replacem ent therapy and sat practically at the bedside to determine if there was anything that we can do to e ncourage her for a safe discharge and she ultimately declined with A and O x4 and understood the cons equences of being discharged including return of pancreatitis, local complications of pancreatitis, a lcohol withdrawal and worsening of her symptoms of nausea, vomiting, diarrhea, abdominal pain and mos t dramatically , although this is unlikely. Patient accepts these risks and signs against medic al advice form and ambulates to the lobby where she is picked up by a family member. IMAGING DONE DURING THIS HOSPITALIZATION: Included a CT scan, which showed peripancreatic inflammato ry changes consistent with acute pancreatitis, fatty liver infiltration and diffuse mucosal thickenin g of the colon suggestive of colitis. LAST LABS IN HOSPITALIZATION: Showed largely unremarkable H and H other than MCV of 105 consistent w ith chronic alcohol use and BMP from 12/30/18 unremarkable wholly. Troponin did trend down peaking a t 0.15. ITEMS TO FOLLOW UP ON AFTER DISCHARGE: Patient does not have a primary care provider. She intends t o get one, although she declines our help in assisting with that. DISPOSITION: Stable, ambulatory and overall against medical advice. Patient is discharged against medical advice on 12/31/18 at 6:20 a.m. [id number]/[facility] #: [id number]
--- NOTE | 2018-12-31 08:14 | DS ---
DISCHARGE SUMMARY: DATE OF ADMISSION: DATE OF DISCHARGE: ADDENDUM: Patient left the hospital prior to being able to generate a discharge packet for her and she elected not to take one when offered. [id number]/[facility] #: [id number] MTDD
== END 2018-12-31 05:30 | disposition left against medical advice (07) | DRG 439 ==
LOC: ED 15:09 → MED 17:58
PROVIDERS: ADMIT Internal Medicine; ATTEND Internal Medicine
DX: K85.20 Alcohol induced acute pancreatitis without necrosis or infection (principal); F10.239 Alcohol dependence with withdrawal, unspecified; A04.72 Enterocolitis due to Clostridium difficile, not specified as recurrent; I24.8 Other forms of acute ischemic heart disease; K76.0 Fatty (change of) liver, not elsewhere classified; Y90.6 Blood alcohol level of 120-199 mg/100 ml; M54.9 Dorsalgia, unspecified; G43.909 Migraine, unspecified, not intractable, without status migrainosus; D64.9 Anemia, unspecified; R74.8 Abnormal levels of other serum enzymes; F17.210 Nicotine dependence, cigarettes, uncomplicated; Z79.1 Long term (current) use of non-steroidal anti-inflammatories (NSAID); Z88.6 Allergy status to analgesic agent; Z88.5 Allergy status to narcotic agent; Z82.5 Family history of asthma and other chronic lower respiratory diseases; Z82.49 Family history of ischemic heart disease and other diseases of the circulatory system
CPT/HCPCS: 36415; 74177; 80048; 80053; 80061; 80320; 81003; 81015; 82150; 82977; 83605; 83615; 83690; 83735; 84484; 84702; 85025; 85610; 86140; 87086; 87493; 93005; 99284; A9270-GY; G0480; J1170; J1650; J2270; J2405; J3411; Q9967

== ENCOUNTER 2019-08-05 04:48 | Emergency (ER) | payer SELFPAY ==
[2019-08-05] MEDS ORDERED: Ondansetron INJ* 2 MG/ML VIAL IV ONE (06:25)
[2019-08-05] MEDS ORDERED: NS 0.9% 1000 ML** 1,000 ML IV ONE ×2 (06:25→08:48)
[2019-08-05 06:28] LABS: ABS Lymphocytes 0.6 10^3/ul (1.0-4.8); ABS Monocytes 0.7 10^3/ul (0-0.8); ABS Neutrophils 6.2 10^3/ul (1.5-7.7); Eosinophil % 0.1 %; Hematocrit 40 % (35-47); Hemoglobin 14.4 g/dL (12.0-16.0); Lymphocyte % 8.6 %; Mean Corpuscular HGB Conc 36 g/dL (31-36); Mean Corpuscular Hemoglobin 36 pg (27-31); Mean Corpuscular Volume 100 fL (80-97); Mean Platelet Volume 7.9 fL (7.4-10.4); Platelet Count 156 10^3/uL (150-450); Red Blood Count 3.99 10^6 /uL (3.70-4.87); Red Cell Distribution Width 13 % (10-15); White Blood Count 7.6 10^3/uL (3.5-10.8)
[2019-08-05 06:30] LABS: INR 0.86 (0.82-1.09)
[2019-08-05 06:39] LABS: ALT 27 U/L (7-52); AST 52 U/L (13-39); Albumin 4.5 g/dL (3.2-5.2); Albumin/Globulin Ratio 1.7 (1-3); Alkaline Phosphatase 93 U/L (34-104); Amylase 209 U/L (29-103); Anion Gap 17 mmol/L (2-11); BUN/Creatinine Ratio 13.9 (8-20); Blood Urea Nitrogen 11 mg/dL (6-24); C Reactive Protein 44.39 mg/L (<8.01); CO2 Carbon Dioxide 24 mmol/L (22-32); Chloride 89 mmol/L (101-111); EGFR African American 94.8 (>60); EGFR Non-African American 78.3 (>60); Globulin 2.7 g/dL (2-4); Glucose 96 mg/dL (70-100); Potassium 3.2 mmol/L (3.5-5.0); Sodium 130 mmol/L (135-145); Total Protein 7.2 g/dL (6.4-8.9)
[2019-08-05 06:44] LABS: HCG Pregnancy < 0.60 mIU/mL
[2019-08-05 07:00] LABS: Alcohol < 10 mg/dL (<10)
--- NOTE | 2019-08-05 07:19 | ED ---
Abdominal Pain/Female - HPI Summary HPI Summary: Patient is a 48-year-old female with past medical history of alcoholism and pancreatitis presenting to the ED with left upper quadrant pain which is radiating to the left mid back. She denies any urinary symptoms. She states symptoms began 4 days ago with nausea, vomiting, diarrhea. She then developed LUQ pain and the nausea and vomiting and diarrhea had ceased at that time. She is currently rating her pain a 3/10. She denies any nausea at this time. She denies any chest pain or shortness of breath. She states she has not had alcohol in a few days. She continues to eat and drink okay up until yesterday. She states she had some broth and water last evening with worsening of symptoms. Symptoms are worse with any PO intake, better with nothing. She does not have any medication at home for relief. Denies other symptoms including gross hematuria, hematemesis, cough, congestion, vaginal bleeding. She states she has not had her menses 2-3 months. - History of Current Complaint Chief Complaint: EDAbdPain Stated Complaint: ABD PAIN PER PT Time Seen by Provider: 08/05/19 05:33 Hx Obtained From: Patient Hx Last Menstrual Period: 3.5 weeks ago ?: No Onset/Duration: Sudden Onset Timing: Constant Severity Initially: Moderate Severity Currently: Moderate Pain Intensity: 10 Pain Scale Used: 0-10 Numeric Location: Discrete At: LUQ Radiates: Yes Radiates to: Flank Character: Sharp, Cramping Aggravating Factor(s): Food Alleviating Factor(s): Nothing Associated Signs and Symptoms: Positive: Back Pain, Decreased Appetite, Nausea, Vomiting, Diarrhea. Negative: Diaphoresis, Fever, Cough, Chest Pain - Risk Factors Ectopic Risk Factor: Negative Ovarian Torsion Risk Factor: Negative Allergies/Adverse Reactions: Allergies Allergy/AdvReac Type Severity Reaction Status Date / Time ibuprofen Allergy Stomach Verified 08/05/19 04:52 Cramps meperidine [From Demerol] Allergy Rash Verified 08/05/19 04:52 Home Medications: Home Medications Guaifenesin/Ephedrine HCl [Primatene Asthma Tablet] 1 each PO .Q4-6H 08/05/19 [ History Confirmed 08/05/19] PMH/Surg Hx/FS Hx/Imm Hx Previously Healthy: Yes - alcoholic Endocrine/Hematology History: Reports: Hx Thyroid Disease - underactive thyroid , Other Endocrine/Hematological Disorders - pancreatitis Denies: Hx Diabetes Cardiovascular History: Reports: Hx Hypertension - Unmedicated Denies: Hx Pacemaker/ICD Respiratory History: Reports: Hx Seasonal Allergies Denies: Hx Asthma, Hx Chronic Obstructive Pulmonary Disease (COPD) GI History: Denies: Hx Ulcer Musculoskeletal History: Reports: Hx Back Problems - c5-c6, c6-c7 disk herniations Sensory History: Reports: Hx Contacts or Glasses, Hx Hearing Problem - "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 one ear" Denies: Hx Hearing Aid Opthamlomology History: Reports: Hx Contacts or Glasses Neurological History: Reports: Hx Headaches Psychiatric History: Denies: Hx Panic Disorder - Surgical History Surgery Procedure, Year, and Place: Breast augmentation-[place] - Immunization History Hx Pertussis Vaccination: No Immunizations Up to Date: Yes Infectious Disease History: No Infectious Disease History: Denies: Hx Hepatitis, Hx Human Immunodeficiency Virus (HIV), History Other Infectious Disease, Traveled Outside the [place] in Last 30 Days - Family History Known Family History: Positive: Hypertension, Other - pancreatic CA - Social History Occupation: Unemployed Lives: Alone Alcohol Use: Daily Alcohol Amount: 3-4 drinks per day Hx Substance Use: No Substance Use Type: Reports: None Substance Use Comment - Amount & Last Used: percocet Hx Tobacco Use: Yes Smoking Status (MU): Heavy Every Day Tobacco Smoker Type: Cigarettes Amount Used/How Often: 5 cigarettes/day Have You Smoked in the Last Year: Yes Review of Systems Negative: Fever, Chills, Fatigue, Skin Diaphoresis Negative: Shortness Of Breath, Cough Positive: Abdominal Pain, Vomiting, Diarrhea, Nausea Genitourinary: Negative Positive: no symptoms reported, see HPI Negative: Arthralgia, Myalgia Skin: Negative Neurological: Negative All Other Systems Reviewed And Are Negative: Yes Physical Exam Triage Information Reviewed: Yes Vital Signs On Initial Exam: Initial Vitals Temp Pulse Resp BP Pulse Ox 97.6 F 104 16 174/110 99 08/05/19 04:50 08/05/19 04:50 08/05/19 04:50 08/05/19 04:50 08/05/19 04:50 Vital Signs Reviewed: Yes Appearance: Positive: Well-Appearing, Well-Nourished Skin: Positive: Skin Color Reflects Adequate Perfusion Head/Face: Positive: Normal Head/Face Inspection Eyes: Positive: EOMI, DIANE, Conjunctiva Clear Neck: Positive: Supple, No Lymphadenopathy Respiratory/Lung Sounds: Positive: Clear to Auscultation, Breath Sounds Present Cardiovascular: Positive: RRR, Pulses are Symmetrical in both Upper and Lower Extremities Abdomen Description: Positive: Other: - Tenderness to the LUQ and left flank. No peritoneal signs, no tenderness at McBurney's point, no evidence of hernia or guarding. Positive for abdominal distention. Musculoskeletal: Positive: Normal, Strength/ROM Intact Neurological: Positive: Sensory/Motor Intact, Alert, Oriented to Person Place, Time, Speech Normal AVPU Assessment: Alert Procedures - Sedation Patient Received Moderate/Deep Sedation with Procedure: No Diagnostics - Vital Signs Vital Signs Temp Pulse Resp BP Pulse Ox 08/05/19 06:41 86 150/100 97 08/05/19 06:34 93 150/99 96 08/05/19 06:00 91 97 08/05/19 05:41 94 160/110 98 08/05/19 04:50 97.6 F 104 16 174/110 99 - Laboratory Lab Results: Lab Results 08/05/19 08/05/19 08/05/19 Range/Units 06:11 06:11 06:11 WBC 7.6 (3.5-10.8) 10^3/uL RBC 3.99 (3.70-4.87) 10^6 /uL Hgb 14.4 (12.0-16.0) g/dL Hct 40 (35-47) % MCV 100 H (80-97) fL MCH 36 H (27-31) pg MCHC 36 (31-36) g/dL RDW 13 (10-15) % Plt Count 156 (150-450) 10^3/uL MPV 7.9 (7.4-10.4) fL Neut % (Auto) 82.0 % Lymph % (Auto) 8.6 % [place] % (Auto) 8.7 % Eos % (Auto) 0.1 % Baso % (Auto) 0.6 % Absolute Neuts (auto) 6.2 (1.5-7.7) 10^3/ul Absolute Lymphs (auto) 0.6 L (1.0-4.8) 10^3/ul Absolute Monos (auto) 0.7 (0-0.8) 10^3/ul Absolute Eos (auto) 0.0 (0-0.6) 10^3/ul Absolute Basos (auto) 0.0 (0-0.2) 10^3/ul Absolute Nucleated RBC 0.0 10^3/ul Nucleated RBC % 0.0 INR (Anticoag Therapy) 0.86 (0.82-1.09) Sodium 130 L (135-145) mmol/L Potassium 3.2 L (3.5-5.0) mmol/L Chloride 89 L (101-111) mmol/L Carbon Dioxide 24 (22-32) mmol/L Anion Gap 17 H (2-11) mmol/L BUN 11 (6-24) mg/dL Creatinine 0.79 (0.51-0.95) mg/dL Est GFR ( Amer) 94.8 (>60) Est GFR (Non-Af Amer) 78.3 (>60) BUN/Creatinine Ratio 13.9 (8-20) Glucose 96 (70-100) mg/dL Lactic Acid (0.5-2.0) mmol/L Calcium 10.0 (8.6-10.3) mg/dL Total Bilirubin 1.00 (0.2-1.0) mg/dL AST 52 H (13-39) U/L ALT 27 (7-52) U/L Alkaline Phosphatase 93 (34-104) U/L Ammonia (16-53) mcmol/L C-Reactive Protein 44.39 H (<8.01) mg/L Total Protein 7.2 (6.4-8.9) g/dL Albumin 4.5 (3.2-5.2) g/dL Globulin 2.7 (2-4) g/dL Albumin/Globulin Ratio 1.7 (1-3) Amylase 209 H (29-103) U/L Lipase Pending Beta HCG, Quant < 0.60 mIU/mL Serum Alcohol < 10 (<10) mg/dL 08/05/19 08/05/19 Range/Units 06:11 06:11 WBC (3.5-10.8) 10^3/uL RBC (3.70-4.87) 10^6 /uL Hgb (12.0-16.0) g/dL Hct (35-47) % MCV (80-97) fL MCH (27-31) pg MCHC (31-36) g/dL RDW (10-15) % Plt Count (150-450) 10^3/uL MPV (7.4-10.4) fL Neut % (Auto) % Lymph % (Auto) % [place] % (Auto) % Eos % (Auto) % Baso % (Auto) % Absolute Neuts (auto) (1.5-7.7) 10^3/ul Absolute Lymphs (auto) (1.0-4.8) 10^3/ul Absolute Monos (auto) (0-0.8) 10^3/ul Absolute Eos (auto) (0-0.6) 10^3/ul Absolute Basos (auto) (0-0.2) 10^3/ul Absolute Nucleated RBC 10^3/ul Nucleated RBC % INR (Anticoag Therapy) (0.82-1.09) Sodium (135-145) mmol/L Potassium (3.5-5.0) mmol/L Chloride (101-111) mmol/L Carbon Dioxide (22-32) mmol/L Anion Gap (2-11) mmol/L BUN (6-24) mg/dL Creatinine (0.51-0.95) mg/dL Est GFR ( Amer) (>60) Est GFR (Non-Af Amer) (>60) BUN/Creatinine Ratio (8-20) Glucose (70-100) mg/dL Lactic Acid 0.7 (0.5-2.0) mmol/L Calcium (8.6-10.3) mg/dL Total Bilirubin (0.2-1.0) mg/dL AST (13-39) U/L ALT (7-52) U/L Alkaline Phosphatase (34-104) U/L Ammonia 48 (16-53) mcmol/L C-Reactive Protein (<8.01) mg/L Total Protein (6.4-8.9) g/dL Albumin (3.2-5.2) g/dL Globulin (2-4) g/dL Albumin/Globulin Ratio (1-3) Amylase (29-103) U/L Lipase Beta HCG, Quant mIU/mL Serum Alcohol (<10) mg/dL Result Diagrams: 08/05/19 06:11 08/05/19 06:11 Lab Statement: Any lab studies that have been ordered have been reviewed, and results considered in the medical decision making process. Abdominal Pain Fem Course/Dx - Course Course Of Treatment: Patient is evaluated for LUQ pain as well as abdominal distention. She states her symptoms began with nausea vomiting and diarrhea. Currently stating only has pain. Symptoms are worse with eating and better with rest. She does have a history of acute pancreatitis. Physical examination , patient appears very dry with dry mucous membranes and dry, flaking skin. Poor dental hygiene. No chest pressure or wheezing. Abdominal distention without hypoactive bowel sounds. No respiratory distress. Symptoms worse with left upper quadrant palpation, negative Rovsing tenderness at McBurney's point, negative Fitzpatrick's. Denies any fever. Vital signs stable, with no evidence of hypoxemia or hypotension. Patient is not tachypneic. There is no ecchymotic discoloration in the. [place] region or the flank. No evidence of pancreatic necrosis. However due to an elevated lipase and amylase, 736 and 209 respectively, CT abdomen/pelvis was obtained. She was given 2 L fluids, Zofran and morphine. CT abdomen/pelvis shows PERIPANCREATIC STRANDING COMPATIBLE WITH ACUTE PANCREATITIS. NO ORGANIZED FLUID COLLECTION OR ABNORMAL PANCREATIC GAS. DUE to patient's symptoms, I have suggested admission to the hospital, to which she declines. Patient states she will follow-up as an outpatient in her [facility], but is refusing to stay as she needs to take care of her ill father. Patient signed AMA paperwork. Instructions given. - Diagnoses Differential Diagnosis: Positive: Bowel Obstruction, Constipation, Diverticulitis, Irritable Bowel Syndrome, Pancreatitis, Other - alcoholism Provider Diagnoses: Acute pancreatitis Discharge ED - Sign-Out/Discharge Documenting (check all that apply): Patient Departure - Discharge Plan Condition: Stable Disposition: AGAINST MEDICAL ADVICE Prescriptions: Ondansetron ODT TAB* [Zofran 4 MG Odt TAB*] 4 mg PO Q6H PRN #12 tab.odt MDD 4 PRN Reason: Nausea Patient Education Materials: Pancreatitis (ED) Referrals: [facility] [Outside] No Primary Care Phys,NOPCP [Primary Care Provider] - Additional Instructions: Please follow up with [facility] Please advance your diet as tolerated Soft diet, low fat foods to be introduced slowly Water and broth to start until you no longer have pain or nausea Zofran up to four times daily as needed for nausea return to the ED immediately if you develop any worsening symptoms - Billing Disposition and Condition Condition: STABLE Disposition: Against Medical Advice
[2019-08-05] MEDS ORDERED: Iohexol 300* (CONTRAST) 10 ML SDV IV ONE (07:25)
[2019-08-05] MEDS ORDERED: Morphine 4 MG/ML VIAL (1 ml) 4 MG/ML VIAL IV ONE (08:24)
[2019-08-05 09:12] VITALS: BP 165/86
== END 2019-08-05 09:09 | disposition left against medical advice (07) ==
LOC: ED 04:48
DX: K85.90 Acute pancreatitis without necrosis or infection, unspecified (principal); E03.9 Hypothyroidism, unspecified; I10 Essential (primary) hypertension; F17.210 Nicotine dependence, cigarettes, uncomplicated; Z88.6 Allergy status to analgesic agent; Z88.5 Allergy status to narcotic agent; Z79.899 Other long term (current) drug therapy
CPT/HCPCS: 36415; 74177; 80053; 80320; 82140; 82150; 83605; 83690; 84702; 85025; 85610; 86140; 99283; G0480; J2270; J2405; Q9967

== ENCOUNTER 2022-05-15 15:43 | Inpatient (IN) ==
[2022-05-15 16:53] LABS: Hematocrit 24 % (35-47); Hemoglobin 7.3 g/dL (12.0-16.0); Mean Corpuscular HGB Conc 31 g/dL (31-36); Mean Corpuscular Hemoglobin 35 pg (27-31); Mean Corpuscular Volume 115 fL (80-97); Mean Platelet Volume 8.5 fL (7.4-10.4); Platelet Count 203 10^3/uL (150-450); Red Blood Count 2.08 10^6 /uL (3.70-4.87); Red Cell Distribution Width 19 % (10-15); White Blood Count 38.4 10^3/uL (3.5-10.8)
[2022-05-15 17:13] LABS: INR 1.41 (0.89-1.11)
[2022-05-15 18:04] LABS: Potassium 2.7 mmol/L (3.5-5.0)
[2022-05-15 18:08] LABS: Albumin 2.7 g/dL (3.2-5.2); C Reactive Protein 97.53 mg/L (<8.01); Calcium 8.2 mg/dL (8.6-10.3); Globulin 2.7 g/dL (2-4); Total Bilirubin 5.6 mg/dL (0.2-1.0); Total Protein 5.4 g/dL (6.4-8.9); eGFR CKD-EPI 71.6 (>60)
[2022-05-15 18:26] LABS: Anisocytosis 1+; Macrocytosis 2+; Polychromasia 1+; Stomatocytes 1+
[2022-05-15] MEDS ORDERED: Iohexol 350 (CONTRAST) 500 ML MDV IV ONE (18:26)
[2022-05-15 18:27] LABS: ABS Basophils 0.1 10^3/ul (0-0.2); ABS Eosinophils 0.2 10^3/ul (0-0.6); ABS Lymphocytes 2.2 10^3/ul (1.0-4.8); ABS Monocytes 1.3 10^3/ul (0-0.8); ABS Neutrophils 34.5 10^3/ul (1.5-7.7); Eosinophil % 0.6 %; Lymphocyte % 5.7 %
[2022-05-15 18:29] LABS: Dohle Bodies Present
[2022-05-15] MEDS: KCL 20 MEQ/100 ML IVPREMIX 20 MEQ/100 ML BAG IV SCH ×2 (19:30→22:16)
[2022-05-15 22:23] LABS: Urine Appearance Clear; Urine Blood Negative (Negative); Urine Color Yellow; Urine Glucose Negative (Negative); Urine Ketones Negative (Negative); Urine Nitrite Negative (Negative); Urine Protein Negative (Negative)
[2022-05-15] MEDS ORDERED: Morphine 4 MG/ML VIAL (1 ml) IV ONE (22:32)
[2022-05-15] MEDS ORDERED: Albumin Human 25% 12.5 GM/50 ML BTL IV ONE (22:32)
[2022-05-15] MEDS ORDERED: cefTRIAXone 1 gm/50 mL D5W 1 GM/50 ML BAG IV SCH (23:00)
[2022-05-15] MEDS: Pantoprazole VIAL 40 MG VIAL IV SCH (23:02)
[2022-05-15 23:05] LABS: Magnesium 1.8 mg/dL (1.9-2.7)
[2022-05-16 01:52] LABS: Direct Bilirubin 2.8 mg/dL (0.03-0.18)
[2022-05-16] MEDS: cefTRIAXone 1 gm/50 mL D5W 1 GM/50 ML BAG IV SCH ×2 (02:28→14:53)
[2022-05-16 05:25] LABS: INR 1.41 (0.89-1.11)
[2022-05-16 05:26] LABS: ABS Basophils 0.2 10^3/ul (0-0.2); ABS Eosinophils 0.3 10^3/ul (0-0.6); ABS Lymphocytes 2.7 10^3/ul (1.0-4.8); ABS Monocytes 1.3 10^3/ul (0-0.8); ABS Neutrophils 26.2 10^3/ul (1.5-7.7); Eosinophil % 0.9 %; Hematocrit 20 % (35-47); Hemoglobin 6.2 g/dL (12.0-16.0); Lymphocyte % 8.9 %; Mean Corpuscular HGB Conc 31 g/dL (31-36); Mean Corpuscular Hemoglobin 35 pg (27-31); Mean Corpuscular Volume 115 fL (80-97); Mean Platelet Volume 8.5 fL (7.4-10.4); Platelet Count 182 10^3/uL (150-450); Red Blood Count 1.76 10^6 /uL (3.70-4.87); Red Cell Distribution Width 19 % (10-15); White Blood Count 30.6 10^3/uL (3.5-10.8)
[2022-05-16 05:42] LABS: Calcium 7.8 mg/dL (8.6-10.3); Potassium 2.9 mmol/L (3.5-5.0); eGFR CKD-EPI 66.7 (>60)
[2022-05-16 07:14] LABS: Magnesium 1.7 mg/dL (1.9-2.7); Total Bilirubin 3.9 mg/dL (0.2-1.0)
[2022-05-16] MEDS: Potassium Chlor 20 meq TAB.ER PO SCH ×2 (08:02→19:40)
[2022-05-16] MEDS: KCL 20 MEQ/100 ML IVPREMIX 20 MEQ/100 ML BAG IV SCH ×2 (08:02→11:01)
[2022-05-16] MEDS ORDERED: Morphine 2 MG/ML SYRINGE IV ONE (09:07)
[2022-05-16 09:28] LABS: Corrected Retic Count 2.7 % (0.5-1.5); Hematocrit for Retic CNT 20 % (35-47); Immature Retic Fraction 0.63; RBC Retic Count 1.71 10^6/uL (3.70-4.87)
[2022-05-16 12:20] LABS: Hematocrit 26 % (35-47); Hemoglobin 8.4 g/dL (12.0-16.0); Mean Corpuscular HGB Conc 32 g/dL (31-36); Mean Corpuscular Hemoglobin 34 pg (27-31); Mean Corpuscular Volume 107 fL (80-97); Mean Platelet Volume 8.1 fL (7.4-10.4); Platelet Count 179 10^3/uL (150-450); Red Blood Count 2.44 10^6 /uL (3.70-4.87); Red Cell Distribution Width 23 % (10-15); White Blood Count 32.8 10^3/uL (3.5-10.8)
[2022-05-16] MEDS ORDERED: fentaNYL 100 mcg/2 ml 50 MCG/ML VIAL ONE (13:02)
[2022-05-16 13:47] LABS: Hepatitis B Surface Ab Immune (Immune); Hepatitis C Antibody Negative (Negative)
[2022-05-16 13:48] LABS: RBC Morphology Normal (Normal)
[2022-05-16 13:49] LABS: Anisocytosis 2+; Macrocytosis 1+; Polychromasia 1+; Stomatocytes 1+
[2022-05-16 13:52] LABS: ABS Eosinophils 0.3 10^3/ul (0-0.6); ABS Monocytes 1.3 10^3/ul (0-0.8); ABS Neutrophils 29.2 10^3/ul (1.5-7.7); Lymphocyte % 6.1 %
[2022-05-16 16:34] LABS: Body Fluid Appearance Clear; Body Fluid Color Yellow; Body Fluid Source Peritonial Fluid
[2022-05-16 17:08] LABS: Hepatitis B Surface Antigen Nonreactive (Nonreactive)
[2022-05-16] MEDS: Morphine 2 MG/ML SYRINGE IV PRN (19:35)
[2022-05-16 21:23] LABS: Body Fluid WBC 49 /mcL
[2022-05-16] MEDS ORDERED: cefTRIAXone 2 gm/50 mL D5W 2 GM/50 ML BAG IV SCH (22:00)
[2022-05-16 22:12] LABS: Body Fluid Mono 16 %; Body Fluid Other Cells 59; Body Fluid Total Cells Counted 200
[2022-05-16] MEDS: Pantoprazole VIAL 40 MG VIAL IV SCH (22:59)
[2022-05-16] MEDS: Ondansetron 4 mg VIAL 2 MG/ML 2 ml VIAL IV PRN (23:48)
[2022-05-17] MEDS: Morphine 2 MG/ML SYRINGE IV PRN ×4 (01:24→19:54)
[2022-05-17 05:41] LABS: Hematocrit 24 % (35-47); Hemoglobin 7.5 g/dL (12.0-16.0); Mean Corpuscular HGB Conc 32 g/dL (31-36); Mean Corpuscular Hemoglobin 35 pg (27-31); Mean Corpuscular Volume 109 fL (80-97); Mean Platelet Volume 8.1 fL (7.4-10.4); Platelet Count 150 10^3/uL (150-450); Red Blood Count 2.17 10^6 /uL (3.70-4.87); Red Cell Distribution Width 24 % (10-15); White Blood Count 31.8 10^3/uL (3.5-10.8)
[2022-05-17 05:53] LABS: Calcium 7.7 mg/dL (8.6-10.3); Magnesium 1.7 mg/dL (1.9-2.7); Potassium 3.7 mmol/L (3.5-5.0); eGFR CKD-EPI 85.1 (>60)
[2022-05-17] MEDS ORDERED: Magnesium Sulfate IV 3 GM in NS 0.9% 100 ml BAG 100 ML IVPB ONE (07:34)
[2022-05-17] MEDS: Potassium Chlor 20 meq TAB.ER PO SCH ×2 (11:07→21:37)
[2022-05-17] MEDS ORDERED: Midazolam 10 mg/10 ml VIAL 1 mg/ml 10 ml VIAL (10 mg) ONE (14:26)
[2022-05-17] MEDS ORDERED: fentaNYL 100 mcg/2 ml 50 MCG/ML VIAL ONE (14:27)
[2022-05-17 16:15] LABS: Total Bilirubin 3.5 mg/dL (0.2-1.0)
[2022-05-17] MEDS: Azithromycin 500 mg/250 ml NS 500 MG/250 ML BAG IVPB SCH (17:18)
[2022-05-18] MEDS: cefTRIAXone 1 gm/50 mL D5W 1 GM/50 ML BAG IV SCH ×2 (00:06→21:16)
[2022-05-18] MEDS: Morphine 2 MG/ML SYRINGE IV PRN ×4 (00:07→21:17)
[2022-05-18 05:48] LABS: Immature Retic Fraction 0.64; RBC Retic Count 2.34 10^6/uL (3.70-4.87); Red Blood Count 2.34 10^6 /uL (3.70-4.87)
[2022-05-18 05:57] LABS: INR 1.37 (0.89-1.11)
[2022-05-18 05:58] LABS: Corrected Retic Count 2.4 % (0.5-1.5); Hematocrit 25 % (35-47); Hematocrit for Retic CNT 25 % (35-47); Mean Corpuscular HGB Conc 31 g/dL (31-36); Mean Corpuscular Hemoglobin 34 pg (27-31); Mean Corpuscular Volume 109 fL (80-97); Mean Platelet Volume 8.1 fL (7.4-10.4); Platelet Count 149 10^3/uL (150-450); Red Cell Distribution Width 23 % (10-15); White Blood Count 32.7 10^3/uL (3.5-10.8)
[2022-05-18 06:21] LABS: Albumin 2.5 g/dL (3.2-5.2); Calcium 7.9 mg/dL (8.6-10.3); Globulin 2.4 g/dL (2-4); Magnesium 2.1 mg/dL (1.9-2.7); Potassium 4.3 mmol/L (3.5-5.0); Total Bilirubin 4.1 mg/dL (0.2-1.0); Total Protein 4.9 g/dL (6.4-8.9); eGFR CKD-EPI 108.7 (>60)
[2022-05-18 06:36] LABS: Ferritin 451.4 ng/mL (11-307)
[2022-05-18] MEDS: Potassium Chlor 20 meq TAB.ER PO SCH (08:44)
[2022-05-18] MEDS: Ondansetron 4 mg VIAL 2 MG/ML 2 ml VIAL IV PRN (09:22)
[2022-05-18] MEDS ORDERED: Furosemide 40 mg/4 ml IV VIAL IV SLOW PU SCH (10:00)
[2022-05-18 12:33] LABS: Lactate Dehydrogenase, BF 64 U/L
[2022-05-18] MEDS: Azithromycin 500 mg/250 ml NS 500 MG/250 ML BAG IVPB SCH (13:45)
[2022-05-18 14:49] LABS: Glucose, BF 111 mg/dL
[2022-05-18 14:50] LABS: Albumin, BF 0.6 g/dL; Fluid Type, Albumin PERITONEAL FLUID
[2022-05-18 14:52] LABS: Fluid Type, Protein, Total PERITONEAL FLUID; Total Protein, BF 0.9 g/dL
[2022-05-18 17:22] LABS: Copper, S 89 mcg/dL (77-206)
[2022-05-18 19:00] LABS: Hepatitis B DNA Quantitative Undetected IU/mL (Undetected)
[2022-05-19] MEDS: Morphine 2 MG/ML SYRINGE IV PRN ×4 (01:55→18:00)
[2022-05-19 05:42] LABS: Anion Gap 10 mmol/L (2-11); Blood Urea Nitrogen 7 mg/dL (6-24); CO2 Carbon Dioxide 23 mmol/L (22-32); Calcium 7.7 mg/dL (8.6-10.3); Chloride 98 mmol/L (101-111); Glucose 97 mg/dL (70-100); Magnesium 1.7 mg/dL (1.9-2.7); Potassium 4.3 mmol/L (3.5-5.0); Sodium 131 mmol/L (135-145); eGFR CKD-EPI 93.1 (>60)
[2022-05-19 05:46] LABS: Hematocrit 23 % (35-47); Hemoglobin 7.5 g/dL (12.0-16.0); Mean Corpuscular HGB Conc 32 g/dL (31-36); Mean Corpuscular Hemoglobin 35 pg (27-31); Mean Corpuscular Volume 109 fL (80-97); Mean Platelet Volume 8.8 fL (7.4-10.4); Platelet Count 132 10^3/uL (150-450); Red Blood Count 2.15 10^6 /uL (3.70-4.87); Red Cell Distribution Width 22 % (10-15); White Blood Count 35.5 10^3/uL (3.5-10.8)
[2022-05-19] MEDS: Ondansetron 4 mg VIAL 2 MG/ML 2 ml VIAL IV PRN (07:40)
[2022-05-19] MEDS ORDERED: Magnesium Sulfate 2 gm BAG 2 GM/50 ML BAG IVPB ONE (07:43)
[2022-05-19 08:30] LABS: Vitamin B12 > 1450 pg/mL (180-914)
[2022-05-19 08:56] LABS: INR 1.5 (0.89-1.11)
[2022-05-19 10:04] LABS: ABS Basophils 0.2 10^3/ul (0-0.2); ABS Eosinophils 0.3 10^3/ul (0-0.6); ABS Lymphocytes 2.5 10^3/ul (1.0-4.8); ABS Monocytes 1.9 10^3/ul (0-0.8); ABS Neutrophils 29.8 10^3/ul (1.5-7.7); Anisocytosis 2+; C Reactive Protein 90.89 mg/L (<8.01); Lymphocyte % 7.1 %; Nucleated Red Blood Cells % 0.1; Polychromasia 1+
[2022-05-19] MEDS: Cefepime 1 GM in Dextrose 1 GM/50 ML BAG IV SCH ×2 (13:10→20:19)
[2022-05-19 15:49] LABS: Ceruloplasmin 21.6 mg/dL
[2022-05-19] MEDS: Azithromycin 500 mg/250 ml NS 500 MG/250 ML BAG IVPB SCH (16:23)
[2022-05-19] MEDS ORDERED: Morphine 2 MG/ML SYRINGE IV ONE (20:37)
[2022-05-20] MEDS: Morphine 2 MG/ML SYRINGE IV PRN ×4 (05:21→23:40)
[2022-05-20 06:38] LABS: ABS Basophils 0.1 10^3/ul (0-0.2); ABS Eosinophils 0.2 10^3/ul (0-0.6); ABS Lymphocytes 2.2 10^3/ul (1.0-4.8); ABS Monocytes 2.2 10^3/ul (0-0.8); ABS Neutrophils 30.1 10^3/ul (1.5-7.7); Eosinophil % 0.6 %; Hematocrit 24 % (35-47); Hemoglobin 7.7 g/dL (12.0-16.0); Lymphocyte % 6.4 %; Mean Corpuscular HGB Conc 32 g/dL (31-36); Mean Corpuscular Hemoglobin 34 pg (27-31); Mean Corpuscular Volume 108 fL (80-97); Mean Platelet Volume 8.8 fL (7.4-10.4); Platelet Count 137 10^3/uL (150-450); Red Blood Count 2.27 10^6 /uL (3.70-4.87); Red Cell Distribution Width 21 % (10-15); White Blood Count 34.8 10^3/uL (3.5-10.8)
[2022-05-20 06:57] LABS: Albumin 2.5 g/dL (3.2-5.2); Calcium 7.9 mg/dL (8.6-10.3); Globulin 2.4 g/dL (2-4); Magnesium 1.9 mg/dL (1.9-2.7); Potassium 3.9 mmol/L (3.5-5.0); Total Bilirubin 4.1 mg/dL (0.2-1.0); Total Protein 4.9 g/dL (6.4-8.9); eGFR CKD-EPI 107.1 (>60)
[2022-05-20] MEDS: Lactulose 30 ml UDC PO SCH ×3 (10:12→21:08)
[2022-05-20] MEDS: Cefepime 1 GM in Dextrose 1 GM/50 ML BAG IV SCH ×2 (10:24→21:08)
[2022-05-20 14:25] LABS: AFP Tumor Marker 2.6 ng/mL
[2022-05-20] MEDS: Azithromycin 500 mg/250 ml NS 500 MG/250 ML BAG IVPB SCH (14:30)
[2022-05-20] MEDS ORDERED: Heparin DRIP 25,000 UNITS BAG 25,000 UNITS/500 ML BAG IV SCH (15:00)
[2022-05-20 15:23] LABS: Cytomegalovirus IgG Antibody Positive (Negative); EBV Capsid Ag IgG Ab Positive (Negative); EBV Capsid Ag IgM Ab Negative (Negative); Epstein-Barr Nuclear Antigen Positive (Negative)
[2022-05-20] MEDS ORDERED: Heparin 5000 UNITS/ML 1 mL VIAL IV PRN (15:39)
[2022-05-20 15:44] LABS: Hematocrit 24 % (35-47); Hemoglobin 7.7 g/dL (12.0-16.0); Mean Corpuscular HGB Conc 32 g/dL (31-36); Mean Corpuscular Hemoglobin 35 pg (27-31); Mean Corpuscular Volume 110 fL (80-97); Platelet Count 138 10^3/uL (150-450); Red Blood Count 2.21 10^6 /uL (3.70-4.87); Red Cell Distribution Width 21 % (10-15); White Blood Count 32.9 10^3/uL (3.5-10.8)
[2022-05-20 16:04] LABS: CMV DNA DETECT/QT, P Undetected IU/mL (Undetected)
[2022-05-20 16:14] LABS: eGFR CKD-EPI 104.2 (>60)
[2022-05-20 17:05] LABS: Macrocytosis 1+
[2022-05-20 17:06] LABS: Anisocytosis 2+; Polychromasia 1+
[2022-05-20 17:07] LABS: Stomatocytes 1+
[2022-05-20 17:08] LABS: ABS Basophils 0.2 10^3/ul (0-0.2); ABS Eosinophils 0.3 10^3/ul (0-0.6); ABS Lymphocytes 2.1 10^3/ul (1.0-4.8); ABS Monocytes 1.7 10^3/ul (0-0.8); ABS Neutrophils 28.6 10^3/ul (1.5-7.7); Dohle Bodies Present; Lymphocyte % 6.2 %
[2022-05-20 20:19] LABS: Hematocrit 25 % (35-47); Hemoglobin 7.8 g/dL (12.0-16.0)
[2022-05-21] MEDS ORDERED: Nicotine GUM 4MG FRUIT FLAVOR PO PRN (01:23)
[2022-05-21] MEDS: Nicotine PATCH 7 MG/24 HR PATCH TRANSDERM SCH ×2 (02:00→10:57)
[2022-05-21] MEDS: Morphine 2 MG/ML SYRINGE IV PRN ×3 (04:51→22:06)
[2022-05-21] MEDS: Ondansetron 4 mg VIAL 2 MG/ML 2 ml VIAL IV PRN ×2 (05:29→15:03)
[2022-05-21 05:49] LABS: Hematocrit 23 % (35-47); Hemoglobin 7.1 g/dL (12.0-16.0); Mean Corpuscular HGB Conc 31 g/dL (31-36); Mean Corpuscular Hemoglobin 34 pg (27-31); Mean Corpuscular Volume 108 fL (80-97); Mean Platelet Volume 9.4 fL (7.4-10.4); Platelet Count 133 10^3/uL (150-450); Red Blood Count 2.13 10^6 /uL (3.70-4.87); Red Cell Distribution Width 21 % (10-15); White Blood Count 34.8 10^3/uL (3.5-10.8)
[2022-05-21 06:04] LABS: ABS Basophils 0.2 10^3/ul (0-0.2); ABS Eosinophils 0.3 10^3/ul (0-0.6); ABS Lymphocytes 3.3 10^3/ul (1.0-4.8); ABS Monocytes 1.8 10^3/ul (0-0.8); ABS Neutrophils 29.3 10^3/ul (1.5-7.7); Eosinophil % 0.9 %; Lymphocyte % 9.5 %
[2022-05-21 08:53] LABS: Albumin 2.4 g/dL (3.2-5.2); Calcium 7.8 mg/dL (8.6-10.3); Globulin 2.5 g/dL (2-4); Magnesium 1.8 mg/dL (1.9-2.7); Potassium 3.3 mmol/L (3.5-5.0); Total Bilirubin 3.7 mg/dL (0.2-1.0); Total Protein 4.9 g/dL (6.4-8.9); eGFR CKD-EPI 97.5 (>60)
[2022-05-21] MEDS ORDERED: Magnesium Sulfate 2 gm BAG 2 GM/50 ML BAG IVPB ONE (09:08)
[2022-05-21] MEDS ORDERED: Potassium Chlor 20 meq TAB.ER PO ONE (09:40)
[2022-05-21] MEDS: Lactulose 30 ml UDC PO SCH (10:57)
[2022-05-21 11:59] LABS: Anisocytosis 1+; Stomatocytes 1+
[2022-05-21] MEDS: cefTRIAXone 1 gm/50 mL D5W 1 GM/50 ML BAG IV SCH (14:30)
[2022-05-21] MEDS ORDERED: Lactulose 30 ml UDC PO SCH (21:00)
[2022-05-21] MEDS: Cefepime 1 GM in Dextrose 1 GM/50 ML BAG IV SCH (21:15)
[2022-05-21] MEDS: Enoxaparin 40 MG/0.4 ML SYR SUBCUT SCH (22:09)
[2022-05-22 04:33] LABS: Hematocrit 22 % (35-47); Hemoglobin 6.9 g/dL (12.0-16.0); Mean Corpuscular HGB Conc 32 g/dL (31-36); Mean Corpuscular Hemoglobin 34 pg (27-31); Mean Corpuscular Volume 108 fL (80-97); Mean Platelet Volume 9.5 fL (7.4-10.4); Platelet Count 139 10^3/uL (150-450); Red Blood Count 2.01 10^6 /uL (3.70-4.87); Red Cell Distribution Width 21 % (10-15); White Blood Count 29.6 10^3/uL (3.5-10.8)
[2022-05-22] MEDS: Ondansetron 4 mg VIAL 2 MG/ML 2 ml VIAL IV PRN (04:35)
[2022-05-22] MEDS: Morphine 2 MG/ML SYRINGE IV PRN ×3 (04:42→20:31)
[2022-05-22 04:47] LABS: ABS Basophils 0.1 10^3/ul (0-0.2); ABS Eosinophils 0.3 10^3/ul (0-0.6); ABS Lymphocytes 2.5 10^3/ul (1.0-4.8); ABS Monocytes 1.9 10^3/ul (0-0.8); ABS Neutrophils 24.8 10^3/ul (1.5-7.7); Eosinophil % 1.2 %; Lymphocyte % 8.5 %
[2022-05-22 04:59] LABS: Albumin 2.2 g/dL (3.2-5.2); Calcium 7.6 mg/dL (8.6-10.3); Globulin 2.1 g/dL (2-4); Magnesium 1.9 mg/dL (1.9-2.7); Potassium 3.9 mmol/L (3.5-5.0); Total Protein 4.3 g/dL (6.4-8.9); eGFR CKD-EPI 97.5 (>60)
[2022-05-22] MEDS: Nicotine PATCH 7 MG/24 HR PATCH TRANSDERM SCH (11:00)
[2022-05-22] MEDS: cefTRIAXone 1 gm/50 mL D5W 1 GM/50 ML BAG IV SCH (12:33)
[2022-05-22 12:39] LABS: Liver/Kidney Microsomes Ab <5.0 U
[2022-05-22 13:05] LABS: Mitochondria M2 Antibody 0.1 U
[2022-05-22] MEDS: Enoxaparin 40 MG/0.4 ML SYR SUBCUT SCH (19:29)
[2022-05-22] MEDS ORDERED: PEG 3000 GI LAVAGE 1 GALLON PO ONE (20:00)
[2022-05-23] MEDS: Morphine 2 MG/ML SYRINGE IV PRN ×3 (04:22→19:14)
[2022-05-23] MEDS: Ondansetron 4 mg VIAL 2 MG/ML 2 ml VIAL IV PRN (04:25)
[2022-05-23] MEDS ORDERED: PEG 3000 GI LAVAGE 1 GALLON PO ONE (07:18)
[2022-05-23 08:17] LABS: Hematocrit 28 % (35-47); Hemoglobin 8.9 g/dL (12.0-16.0); Mean Corpuscular HGB Conc 32 g/dL (31-36); Mean Corpuscular Hemoglobin 34 pg (27-31); Mean Corpuscular Volume 104 fL (80-97); Mean Platelet Volume 9.3 fL (7.4-10.4); Platelet Count 169 10^3/uL (150-450); Red Blood Count 2.67 10^6 /uL (3.70-4.87); Red Cell Distribution Width 22 % (10-15); White Blood Count 35.5 10^3/uL (3.5-10.8)
[2022-05-23 08:53] LABS: Albumin 2.5 g/dL (3.2-5.2); Albumin/Globulin Ratio 0.9 (1-3); Calcium 8.2 mg/dL (8.6-10.3); Globulin 2.8 g/dL (2-4); Magnesium 1.9 mg/dL (1.9-2.7); Total Protein 5.3 g/dL (6.4-8.9); eGFR CKD-EPI 106.7 (>60)
[2022-05-23 09:11] LABS: ABS Basophils 0.5 10^3/ul (0-0.2); ABS Eosinophils 0.3 10^3/ul (0-0.6); ABS Lymphocytes 2.5 10^3/ul (1.0-4.8); ABS Monocytes 2.1 10^3/ul (0-0.8); ABS Neutrophils 30.2 10^3/ul (1.5-7.7); Eosinophil % 0.7 %; Lymphocyte % 7.1 %
[2022-05-23] MEDS: cefTRIAXone 1 gm/50 mL D5W 1 GM/50 ML BAG IV SCH (09:38)
[2022-05-23] MEDS: Nicotine PATCH 7 MG/24 HR PATCH TRANSDERM SCH (09:41)
[2022-05-23] MEDS ORDERED: Heparin 2 UNITS/ML 1000 mls 1,000 ML IV ONE (11:32)
[2022-05-23 11:53] LABS: C Reactive Protein 121.01 mg/L (<8.01)
[2022-05-23] MEDS ORDERED: fentaNYL 100 mcg/2 ml 50 MCG/ML VIAL ONE (12:19)
[2022-05-23 16:51] LABS: INR 1.41 (0.89-1.11)
[2022-05-23] MEDS: methylPREDNISolone SOD SUCC 40 mg/ml 1 ml VIAL IV SCH (17:40)
[2022-05-23] MEDS: Enoxaparin 40 MG/0.4 ML SYR SUBCUT SCH (19:14)
[2022-05-24 05:37] LABS: Hematocrit 27 % (35-47); Hemoglobin 8.9 g/dL (12.0-16.0); Mean Corpuscular HGB Conc 33 g/dL (31-36); Mean Corpuscular Hemoglobin 34 pg (27-31); Mean Corpuscular Volume 104 fL (80-97); Mean Platelet Volume 9.4 fL (7.4-10.4); Platelet Count 180 10^3/uL (150-450); Red Blood Count 2.62 10^6 /uL (3.70-4.87); Red Cell Distribution Width 21 % (10-15); White Blood Count 31.7 10^3/uL (3.5-10.8)
[2022-05-24 05:47] LABS: ABS Basophils 0.1 10^3/ul (0-0.2); ABS Lymphocytes 1.1 10^3/ul (1.0-4.8); ABS Neutrophils 29.4 10^3/ul (1.5-7.7); Eosinophil % 0.1 %; Lymphocyte % 3.5 %
[2022-05-24 05:58] LABS: Albumin 2.5 g/dL (3.2-5.2); Albumin/Globulin Ratio 0.9 (1-3); Calcium 8.1 mg/dL (8.6-10.3); Globulin 2.7 g/dL (2-4); Magnesium 1.8 mg/dL (1.9-2.7); Potassium 3.8 mmol/L (3.5-5.0); Total Bilirubin 2.9 mg/dL (0.2-1.0); Total Protein 5.2 g/dL (6.4-8.9); eGFR CKD-EPI 94.5 (>60)
[2022-05-24] MEDS ORDERED: Magnesium Sulfate 2 gm BAG 2 GM/50 ML BAG IVPB ONE (07:19)
[2022-05-24 08:01] LABS: Case Number CR-22-52629
[2022-05-24] MEDS: Morphine 2 MG/ML SYRINGE IV PRN (08:20)
[2022-05-24] MEDS: Nicotine PATCH 7 MG/24 HR PATCH TRANSDERM SCH (10:39)
[2022-05-24] MEDS: methylPREDNISolone SOD SUCC 40 mg/ml 1 ml VIAL IV SCH (10:39)
[2022-05-24 12:09] VITALS: BP 118/67
[2022-05-24 17:25] LABS: Soluble Liver Antigen IgG <20.1 U
== END 2022-05-24 13:30 | disposition left against medical advice (07) | DRG 720 ==
LOC: ED 15:43 → MEDTELE 23:55 → SUATTDRO 05-16 00:06
PROVIDERS: ADMIT Student in an Organized Health Care Education/Training Program; ATTEND Internal Medicine

== ENCOUNTER 2022-06-14 06:30 | Inpatient (IN) ==
[2022-06-14] MEDS ORDERED: Lactated Ringers 1000 ml BAG 1,000 ML IV ONE (06:34)
[2022-06-14] MEDS ORDERED: Piperacillin/Tazobac ADVAN 3.375 GM in NS 0.9% 100 ml BAG 100 ML IV ONE (06:41)
[2022-06-14 07:10] LABS: Hematocrit 25 % (35-47); Hemoglobin 8.2 g/dL (12.0-16.0); Mean Corpuscular HGB Conc 33 g/dL (31-36); Mean Corpuscular Hemoglobin 34 pg (27-31); Mean Corpuscular Volume 105 fL (80-97); Mean Platelet Volume 9.4 fL (7.4-10.4); Platelet Count 183 10^3/uL (150-450); Red Blood Count 2.38 10^6 /uL (3.70-4.87); Red Cell Distribution Width 19 % (10-15); White Blood Count 21.3 10^3/uL (3.5-10.8)
[2022-06-14 07:22] LABS: Activated Partial Thrombo Time 32.2 seconds (26.0-38.0); INR 1.79 (0.89-1.11)
[2022-06-14 07:29] LABS: High Sens Troponin Baseline 141 pg/mL (<15)
[2022-06-14 07:44] LABS: Albumin 2.1 g/dL (3.2-5.2); BNP 459 pg/mL (<=100); CO2 Carbon Dioxide 24 mmol/L (22-32); Calcium 7.9 mg/dL (8.6-10.3); Chloride 95 mmol/L (101-111); Sodium 130 mmol/L (135-145)
[2022-06-14 07:50] LABS: ALT 24 U/L (7-52); Albumin/Globulin Ratio 0.8 (1-3); Alkaline Phosphatase 370 U/L (35-149); Blood Urea Nitrogen 8 mg/dL (6-24); Creatine Kinase 39 U/L (10-223); Globulin 2.6 g/dL (2-4); Glucose 60 mg/dL (70-100); Total Protein 4.7 g/dL (6.4-8.9); eGFR CKD-EPI 71.6 (>60)
[2022-06-14] MEDS ORDERED: Dextrose 50% Syringe 50 ml 25 GM/50 ML SYRINGE IV PUSH ONE (07:52)
[2022-06-14 07:54] LABS: Anion Gap 11 mmol/L (2-11)
[2022-06-14] MEDS ORDERED: Iodixanol (CONTRAST) 320 MG/ML 100 ML SDV IV ONE (07:59)
[2022-06-14 08:25] LABS: PCO2 Arterial 38 mmHg (35-45); PO2 Arterial 83 mmHg (80-100)
[2022-06-14] MEDS ORDERED: Vancomycin 1,250 MG in NS 0.9% 250 ml 250 ML IVPB ONE (08:30)
[2022-06-14 08:40] LABS: High Sensitivity Troponin 1 Hr 166 pg/mL (<15)
[2022-06-14 09:08] LABS: Anisocytosis 1+; Macrocytosis 1+; Polychromasia 1+
[2022-06-14 09:09] LABS: ABS Lymphocytes 1.1 10^3/ul (1.0-4.8); ABS Monocytes 1.4 10^3/ul (0-0.8); ABS Neutrophils 18.8 10^3/ul (1.5-7.7); Eosinophil % 0.2 %; Lymphocyte % 4.9 %; Nucleated Red Blood Cells % 0.1
[2022-06-14 09:30] LABS: Urine Appearance Clear; Urine Bilirubin Negative (Negative); Urine Blood Negative (Negative); Urine Color Amber; Urine Glucose Negative (Negative); Urine Ketones Negative (Negative); Urine Nitrite Negative (Negative); Urine Protein 1+(30 mg/dL) (Negative); Urine Specific Gravity 1.021 (1.002-1.030); Urine Urobilinogen Negative (Negative)
[2022-06-14 09:41] LABS: Urine Bacteria Absent (Absent); Urine Red Blood Cell Trace(0-2/hpf) (Absent); Urine Squamous Epithelial Cell Present (Absent); Urine White Blood Cell Trace(0-5/hpf) (Absent)
[2022-06-14] MEDS: Dexamethasone IV 4 MG/ML VIAL 1 ml VIAL IV SLOW PU SCH (10:56)
[2022-06-14 11:39] LABS: Direct Bilirubin Redraw 1.7 mg/dL (0.03-0.18); Potassium Redraw 3.2 mmol/L (3.5-5.0)
[2022-06-14] MEDS: Lactated Ringers 1000 ml BAG 1,000 ML IV ONE ×2 (11:52→21:18)
[2022-06-14 12:22] LABS: Albumin 2.1 g/dL (3.2-5.2); Calcium 7.8 mg/dL (8.6-10.3); Potassium 3.2 mmol/L (3.5-5.0); Total Bilirubin 2.9 mg/dL (0.2-1.0)
[2022-06-14 12:28] LABS: Albumin/Globulin Ratio 0.9 (1-3); Globulin 2.3 g/dL (2-4); Total Protein 4.4 g/dL (6.4-8.9); eGFR CKD-EPI 65.9 (>60)
[2022-06-14] MEDS ORDERED: Potassium Chloride LIQUID 20 MEQ/15 ML LIQUID PO ONE (12:46)
[2022-06-14] MEDS ORDERED: Zosyn per Pharmacy NOTE FOLLOW UP SCH (13:00)
[2022-06-14] MEDS ORDERED: ZOSYN 3.375 GM Q8H per EXTENDED INFUSION IV ONE (13:00)
[2022-06-14] MEDS: Lactulose 30 ml UDC PO SCH ×3 (13:05→19:49)
[2022-06-14] MEDS ORDERED: Vancomycin per Pharmacy 1 EA NOTE FOLLOW UP SCH (14:00)
[2022-06-14] MEDS: ZOSYN 3.375 GM Q8H per EXTENDED INFUSION IV SCH ×2 (14:04→21:31)
[2022-06-14] MEDS: DOXYcycline 100 MG in NS 0.9% 250 ml 250 ML IVPB SCH (14:51)
[2022-06-14 15:14] LABS: Urine Benzodiazepine Screen None Detected (None Detect); Urine Cannabinoids Screen None Detected (None Detect); Urine Opiates Screen None Detected (None Detect)
[2022-06-14] MEDS: Pantoprazole VIAL 40 MG VIAL IV SCH (19:49)
[2022-06-14] MEDS: Morphine 2 MG/ML SYRINGE IV PRN ×2 (20:42→23:12)
[2022-06-14] MEDS: Vancomycin 1000 MG in NS 0.9% 250 ML IVPB SCH (21:36)
[2022-06-14] MEDS: Heparin 5000 UNITS/ML 1 mL VIAL SUBCUT SCH (23:12)
[2022-06-15] MEDS: DOXYcycline 100 MG in NS 0.9% 250 ml 250 ML IVPB SCH ×2 (02:51→14:51)
[2022-06-15] MEDS: Morphine 2 MG/ML SYRINGE IV PRN ×9 (03:12→22:25)
[2022-06-15 04:28] LABS: ABS Monocytes 0.6 10^3/ul (0-0.8); ABS Neutrophils 15.6 10^3/ul (1.5-7.7); Eosinophil % 0.1 %; Hematocrit 24 % (35-47); Hemoglobin 7.5 g/dL (12.0-16.0); Lymphocyte % 11.1 %; Mean Corpuscular HGB Conc 31 g/dL (31-36); Mean Corpuscular Hemoglobin 34 pg (27-31); Mean Corpuscular Volume 107 fL (80-97); Mean Platelet Volume 9.1 fL (7.4-10.4); Nucleated Red Blood Cells % 0.1; Platelet Count 146 10^3/uL (150-450); Red Blood Count 2.24 10^6 /uL (3.70-4.87); Red Cell Distribution Width 18 % (10-15); White Blood Count 18.3 10^3/uL (3.5-10.8)
[2022-06-15] MEDS: ZOSYN 3.375 GM Q8H per EXTENDED INFUSION IV SCH ×3 (04:37→20:04)
[2022-06-15 04:43] LABS: eGFR CKD-EPI 62.3 (>60)
[2022-06-15] MEDS: Heparin 5000 UNITS/ML 1 mL VIAL SUBCUT SCH ×3 (05:25→21:48)
[2022-06-15] MEDS ORDERED: KCL 20 MEQ/100 ML IVPREMIX 20 MEQ/100 ML BAG IV ONE (07:28)
[2022-06-15] MEDS: Dexamethasone IV 4 MG/ML VIAL 1 ml VIAL IV SLOW PU SCH (07:52)
[2022-06-15] MEDS: Lactulose 30 ml UDC PO SCH (07:52)
[2022-06-15 09:37] LABS: Albumin 2.1 g/dL (3.2-5.2); Calcium 7.9 mg/dL (8.6-10.3); Magnesium 1.9 mg/dL (1.9-2.7); Potassium 3.6 mmol/L (3.5-5.0); Total Bilirubin 2.6 mg/dL (0.2-1.0)
[2022-06-15 09:43] LABS: Albumin/Globulin Ratio 0.8 (1-3); Globulin 2.6 g/dL (2-4); Total Protein 4.7 g/dL (6.4-8.9)
[2022-06-15] MEDS: Vancomycin 1000 MG in NS 0.9% 250 ML IVPB SCH ×2 (10:30→20:03)
[2022-06-15] MEDS: Lactulose 30 ml UDC NG TUBE SCH ×3 (13:38→21:50)
[2022-06-15 14:03] LABS: Free T4 0.96 ng/dL (0.61-1.12); TSH Ultra Thyroid Stim Horm 4.49 mcIU/mL (0.34-5.60)
[2022-06-15] MEDS: Pantoprazole VIAL 40 MG VIAL IV SCH (19:42)
[2022-06-15 21:16] LABS: Body Fluid WBC 112 /mcL
[2022-06-15] MEDS ORDERED: fentaNYL 100 mcg/2 ml 50 MCG/ML VIAL IV SLOW PU ONE (21:17)
[2022-06-15 21:47] LABS: Body Fluid Appearance Clear; Body Fluid Color Yellow; Body Fluid Source Peritonial Fluid
[2022-06-15 23:45] LABS: Body Fluid Mono 12 %; Body Fluid Total Cells Counted 200
[2022-06-16] MEDS: Morphine 2 MG/ML SYRINGE IV PRN ×3 (00:28→05:18)
[2022-06-16] MEDS ORDERED: Lactated Ringers 500 ml BAG 500 ML IV ONE (00:57)
[2022-06-16] MEDS: DOXYcycline 100 MG in NS 0.9% 250 ml 250 ML IVPB SCH ×2 (01:36→15:25)
[2022-06-16] MEDS: ZOSYN 3.375 GM Q8H per EXTENDED INFUSION IV SCH ×3 (04:24→21:57)
[2022-06-16 04:52] LABS: Hematocrit 24 % (35-47); Hemoglobin 7.6 g/dL (12.0-16.0); Mean Corpuscular HGB Conc 32 g/dL (31-36); Mean Corpuscular Hemoglobin 33 pg (27-31); Mean Corpuscular Volume 105 fL (80-97); Mean Platelet Volume 8.6 fL (7.4-10.4); Platelet Count 130 10^3/uL (150-450); Red Blood Count 2.29 10^6 /uL (3.70-4.87); Red Cell Distribution Width 19 % (10-15)
[2022-06-16 05:10] LABS: Albumin 2.2 g/dL (3.2-5.2); Albumin/Globulin Ratio 0.8 (1-3); Calcium 8.2 mg/dL (8.6-10.3); Globulin 2.6 g/dL (2-4); Potassium 3.5 mmol/L (3.5-5.0); Total Bilirubin 1.9 mg/dL (0.2-1.0); Total Protein 4.8 g/dL (6.4-8.9)
[2022-06-16] MEDS: Heparin 5000 UNITS/ML 1 mL VIAL SUBCUT SCH ×3 (05:17→21:34)
[2022-06-16 06:10] LABS: INR 1.25 (0.89-1.11)
[2022-06-16] MEDS ORDERED: Furosemide 40 mg/4 ml IV VIAL IV ONE (07:41)
[2022-06-16] MEDS ORDERED: KCL 20 MEQ/100 ML IVPREMIX 20 MEQ/100 ML BAG IV ONE (07:41)
[2022-06-16] MEDS: Dexamethasone IV 4 MG/ML VIAL 1 ml VIAL IV SLOW PU SCH (08:12)
[2022-06-16] MEDS: Lactulose 30 ml UDC NG TUBE SCH ×4 (08:13→21:34)
[2022-06-16] MEDS ORDERED: Vancomycin Trough Check NOTE FOLLOW UP ONE (08:30)
[2022-06-16] MEDS: Vancomycin 1000 MG in NS 0.9% 250 ML IVPB SCH (10:01)
[2022-06-16] MEDS ORDERED: Thiamine IV 100 MG/ML VIAL (only for Bannana Bags !) IVPB SCH (11:00)
[2022-06-16] MEDS: Multivitamins ADULT w/MIN LIQ 15 ML UDC NG TUBE SCH (12:25)
[2022-06-16] MEDS: Thiamine IV 500 MG in NS 0.9% 250 ML (Wernicke-Korsakoff) IV SCH ×2 (13:28→21:57)
[2022-06-16] MEDS ORDERED: Dexmedetomidine 1,000 MCG in NS 0.9% 250 ml 240 ML IV SCH ×3 (14:00→22:19)
[2022-06-16] MEDS ORDERED: Propofol 10 MG/ML 20 ML BTL ONE (15:46)
[2022-06-16] MEDS ORDERED: fentaNYL 250 mcg/5 ml 50 MCG/ML 5 ml VIAL (250 MCG) ONE (15:46)
[2022-06-16] MEDS ORDERED: Etomidate 40 mg/20 ml (2 MG/ML) 20 ml VIAL (40 mg) ONE (15:46)
[2022-06-16] MEDS ORDERED: Midazolam 10 mg/10 ml VIAL 1 mg/ml 10 ml VIAL (10 mg) ONE (15:46)
[2022-06-16 16:35] LABS: Calcium 8.4 mg/dL (8.6-10.3); Potassium 3.7 mmol/L (3.5-5.0); eGFR CKD-EPI 44.6 (>60)
[2022-06-16] MEDS: Pantoprazole VIAL 40 MG VIAL IV SCH (21:34)
[2022-06-17] MEDS: DOXYcycline 100 MG in NS 0.9% 250 ml 250 ML IVPB SCH (03:21)
[2022-06-17] MEDS: Thiamine IV 500 MG in NS 0.9% 250 ML (Wernicke-Korsakoff) IV SCH ×3 (04:34→23:28)
[2022-06-17] MEDS: ZOSYN 3.375 GM Q8H per EXTENDED INFUSION IV SCH ×2 (05:03→13:35)
[2022-06-17 05:06] LABS: Hematocrit 23 % (35-47); Hemoglobin 7.6 g/dL (12.0-16.0); Mean Corpuscular HGB Conc 33 g/dL (31-36); Mean Corpuscular Hemoglobin 35 pg (27-31); Mean Corpuscular Volume 107 fL (80-97); Red Blood Count 2.19 10^6 /uL (3.70-4.87); Red Cell Distribution Width 19 % (10-15)
[2022-06-17 05:08] LABS: ABS Basophils 0.1 10^3/ul (0-0.2); ABS Lymphocytes 1.3 10^3/ul (1.0-4.8); ABS Monocytes 0.4 10^3/ul (0-0.8); ABS Neutrophils 9.2 10^3/ul (1.5-7.7); Lymphocyte % 11.7 %
[2022-06-17 05:37] LABS: Albumin 2.3 g/dL (3.2-5.2); Globulin 2.4 g/dL (2-4); Potassium 3.8 mmol/L (3.5-5.0); Total Bilirubin 1.7 mg/dL (0.2-1.0); Total Protein 4.7 g/dL (6.4-8.9); eGFR CKD-EPI 39.3 (>60)
[2022-06-17] MEDS: Heparin 5000 UNITS/ML 1 mL VIAL SUBCUT SCH ×3 (05:56→23:29)
[2022-06-17 06:35] LABS: Mean Platelet Volume 8.2 fL (7.4-10.4); Platelet Count Platelets clumped. 10^3/uL (150-450)
[2022-06-17] MEDS: Albumin Human 5% 12.5 GM/250 ML BTL IV SCH ×6 (06:42→16:23)
[2022-06-17] MEDS: Lactulose 30 ml UDC NG TUBE SCH ×3 (08:10→17:44)
[2022-06-17] MEDS: Multivitamins ADULT w/MIN LIQ 15 ML UDC NG TUBE SCH (08:10)
[2022-06-17] MEDS: Dexamethasone IV 4 MG/ML VIAL 1 ml VIAL IV SLOW PU SCH (08:11)
[2022-06-17] MEDS ORDERED: Albumin Human 5% 12.5 GM/250 ML BTL IV ONE (08:36)
[2022-06-17] MEDS ORDERED: Bumetanide IV 0.25 MG/ML 4 ml VIAL (1 mg) SLOW PUSH ONE (11:53)
[2022-06-17 11:58] LABS: Lactate Dehydrogenase, BF 70 U/L
[2022-06-17] MEDS ORDERED: Bumetanide IV 0.25 MG/ML 4 ml VIAL (1 mg) ONE (11:58)
[2022-06-17] MEDS ORDERED: Albumin Human 5% 25.0 GM/500 ML BTL IV ONE (11:59)
[2022-06-17 14:18] LABS: Fluid Type, Protein, Total PERITONEAL; Total Protein, BF 0.7 g/dL
[2022-06-17 14:20] LABS: Glucose, BF 156 mg/dL
[2022-06-17 14:21] LABS: Albumin, BF 0.3 g/dL; Fluid Type, Albumin PERITONEAL
[2022-06-17] MEDS: Lactulose 30 ml UDC PO SCH (21:02)
[2022-06-17] MEDS: Pantoprazole VIAL 40 MG VIAL IV SCH (23:29)
[2022-06-18] MEDS: ZOSYN 3.375 GM Q8H per EXTENDED INFUSION IV SCH ×3 (00:24→18:18)
[2022-06-18] MEDS ORDERED: LORazepam 2 mg VIAL 1 ml IV PUSH ONE (01:17)
[2022-06-18] MEDS ORDERED: Lorazepam PYXIS KEY PRN (01:17)
[2022-06-18] MEDS: Heparin 5000 UNITS/ML 1 mL VIAL SUBCUT SCH ×3 (05:09→21:12)
[2022-06-18 06:38] LABS: INR 1.23 (0.89-1.11)
[2022-06-18 06:39] LABS: Hematocrit 25 % (35-47); Hemoglobin 8.1 g/dL (12.0-16.0); Mean Corpuscular HGB Conc 32 g/dL (31-36); Mean Corpuscular Hemoglobin 35 pg (27-31); Mean Corpuscular Volume 109 fL (80-97); Mean Platelet Volume 8.7 fL (7.4-10.4); Platelet Count 121 10^3/uL (150-450); Red Blood Count 2.31 10^6 /uL (3.70-4.87); Red Cell Distribution Width 19 % (10-15); White Blood Count 22.8 10^3/uL (3.5-10.8)
[2022-06-18 06:54] LABS: Albumin 3.2 g/dL (3.2-5.2); Albumin/Globulin Ratio 1.2 (1-3); Calcium 8.7 mg/dL (8.6-10.3); Globulin 2.6 g/dL (2-4); Potassium 3.2 mmol/L (3.5-5.0); Total Bilirubin 2.5 mg/dL (0.2-1.0); Total Protein 5.8 g/dL (6.4-8.9)
[2022-06-18] MEDS ORDERED: LORazepam 2 mg VIAL 1 ml ONE (07:49)
[2022-06-18] MEDS ORDERED: Lorazepam PYXIS KEY ONE (07:49)
[2022-06-18] MEDS: LORazepam 2 mg VIAL 1 ml IV PUSH SCH ×2 (07:55→12:52)
[2022-06-18] MEDS ORDERED: Multivitamins/Minerals TAB PO SCH (09:00)
[2022-06-18] MEDS: Thiamine IV 500 MG in NS 0.9% 250 ML (Wernicke-Korsakoff) IV SCH ×2 (09:34→18:18)
[2022-06-18] MEDS: Dexamethasone IV 4 MG/ML VIAL 1 ml VIAL IV SLOW PU SCH (09:55)
[2022-06-18] MEDS: Lactulose 30 ml UDC PO SCH ×4 (09:56→21:12)
[2022-06-18] MEDS ORDERED: KCL 20 MEQ/100 ML IVPREMIX 20 MEQ/100 ML BAG IV ONE (11:22)
[2022-06-18] MEDS ORDERED: Bumetanide IV 0.25 MG/ML 4 ml VIAL (1 mg) SLOW PUSH ONE (12:28)
[2022-06-18 15:21] LABS: PCO2 Arterial 36 mmHg (35-45)
[2022-06-18 15:22] LABS: PO2 Arterial 48 mmHg (80-100)
[2022-06-18] MEDS ORDERED: Succinylcholine 200 mg VIAL 20 mg/ml 10 ml VIAL (200 mg) ONE (15:26)
[2022-06-18] MEDS ORDERED: Propofol 10 mg/ml 100 ML BTL 100 ML ONE (15:26)
[2022-06-18] MEDS ORDERED: Rocuronium 50 mg VIAL 10 mg/ml 5 ml VIAL (50 mg) ONE (15:27)
[2022-06-18] MEDS ORDERED: Propofol 10 MG/ML 20 ML BTL ONE (15:46)
[2022-06-18] MEDS ORDERED: fentaNYL 250 mcg/5 ml 50 MCG/ML 5 ml VIAL (250 MCG) ONE (15:46)
[2022-06-18] MEDS ORDERED: Etomidate 40 mg/20 ml (2 MG/ML) 20 ml VIAL (40 mg) ONE (15:46)
[2022-06-18] MEDS ORDERED: Midazolam 10 mg/10 ml VIAL 1 mg/ml 10 ml VIAL (10 mg) ONE (15:46)
[2022-06-18] MEDS: Propofol 10 mg/ml 100 ML BTL 100 ML IV SCH (15:50)
[2022-06-18] MEDS ORDERED: fentaNYL 100 mcg/2 ml 50 MCG/ML VIAL IV SLOW PU PRN (17:34)
[2022-06-18] MEDS: methylPREDNISolone SOD SUCC 40 mg/ml 1 ml VIAL IV SCH (18:18)
[2022-06-18] MEDS: Chlorhexidine MOUTHWASH 0.12% 15 ML UDC TOPICAL SCH ×2 (18:18→21:12)
[2022-06-18] MEDS: Pantoprazole VIAL 40 MG VIAL IV SCH (21:12)
[2022-06-19] MEDS: Propofol 10 mg/ml 100 ML BTL 100 ML IV SCH ×3 (00:27→23:14)
[2022-06-19] MEDS: methylPREDNISolone SOD SUCC 40 mg/ml 1 ml VIAL IV SCH ×4 (00:32→23:04)
[2022-06-19] MEDS: ZOSYN 3.375 GM Q8H per EXTENDED INFUSION IV SCH ×3 (00:32→18:31)
[2022-06-19] MEDS: Thiamine IV 500 MG in NS 0.9% 250 ML (Wernicke-Korsakoff) IV SCH ×3 (00:32→17:03)
[2022-06-19] MEDS: Chlorhexidine MOUTHWASH 0.12% 15 ML UDC TOPICAL SCH ×6 (03:01→20:40)
[2022-06-19] MEDS: Heparin 5000 UNITS/ML 1 mL VIAL SUBCUT SCH ×3 (05:10→20:40)
[2022-06-19 06:18] LABS: Calcium 8.3 mg/dL (8.6-10.3); Potassium 3.2 mmol/L (3.5-5.0); eGFR CKD-EPI 33.2 (>60)
[2022-06-19 07:03] LABS: ABS Lymphocytes 0.4 10^3/ul (1.0-4.8); ABS Monocytes 0.1 10^3/ul (0-0.8); Hematocrit 21 % (35-47); Hemoglobin 6.9 g/dL (12.0-16.0); Mean Corpuscular HGB Conc 33 g/dL (31-36); Mean Corpuscular Hemoglobin 35 pg (27-31); Mean Corpuscular Volume 106 fL (80-97); Mean Platelet Volume 8.4 fL (7.4-10.4); Platelet Count 56 10^3/uL (150-450); Red Blood Count 1.98 10^6 /uL (3.70-4.87); Red Cell Distribution Width 20 % (10-15); White Blood Count 10.6 10^3/uL (3.5-10.8)
[2022-06-19] MEDS ORDERED: Multivitamins ADULT w/MIN LIQ 15 ML UDC ONE (08:49)
[2022-06-19] MEDS: Lactulose 30 ml UDC PO SCH ×4 (09:14→20:40)
[2022-06-19] MEDS: Multivitamins ADULT w/MIN LIQ 15 ML UDC PO SCH (09:26)
[2022-06-19] MEDS ORDERED: Bumetanide IV 0.25 MG/ML 4 ml VIAL (1 mg) SLOW PUSH ONE (12:28)
[2022-06-19 12:54] LABS: PCO2 Arterial 35 mmHg (35-45); PO2 Arterial 129 mmHg (80-100)
[2022-06-19 14:24] LABS: Calcium 8.3 mg/dL (8.6-10.3); eGFR CKD-EPI 34.8 (>60)
[2022-06-19 14:27] LABS: ABS Lymphocytes 0.5 10^3/ul (1.0-4.8); ABS Monocytes 0.2 10^3/ul (0-0.8); ABS Neutrophils 9.8 10^3/ul (1.5-7.7); Hematocrit 22 % (35-47); Hemoglobin 7.1 g/dL (12.0-16.0); Lymphocyte % 4.9 %; Mean Corpuscular HGB Conc 33 g/dL (31-36); Mean Corpuscular Hemoglobin 35 pg (27-31); Mean Corpuscular Volume 107 fL (80-97); Mean Platelet Volume 8.9 fL (7.4-10.4); Platelet Count 50 10^3/uL (150-450); Red Blood Count 2.05 10^6 /uL (3.70-4.87); Red Cell Distribution Width 19 % (10-15); White Blood Count 10.5 10^3/uL (3.5-10.8)
[2022-06-19 15:30] LABS: Magnesium 1.9 mg/dL (1.9-2.7)
[2022-06-19] MEDS: KCL 20 MEQ/100 ML IVPREMIX 20 MEQ/100 ML BAG IV SCH ×2 (15:30→17:34)
[2022-06-19] MEDS: Pantoprazole VIAL 40 MG VIAL IV SCH (20:39)
[2022-06-20] MEDS: ZOSYN 3.375 GM Q8H per EXTENDED INFUSION IV SCH ×3 (00:54→17:00)
[2022-06-20] MEDS: Chlorhexidine MOUTHWASH 0.12% 15 ML UDC TOPICAL SCH ×6 (00:55→20:35)
[2022-06-20] MEDS: Heparin 5000 UNITS/ML 1 mL VIAL SUBCUT SCH (05:23)
[2022-06-20 05:29] LABS: ABS Lymphocytes 0.6 10^3/ul (1.0-4.8); ABS Monocytes 0.4 10^3/ul (0-0.8); ABS Neutrophils 13.7 10^3/ul (1.5-7.7); Hematocrit 23 % (35-47); Hemoglobin 7.4 g/dL (12.0-16.0); Lymphocyte % 4.2 %; Mean Corpuscular HGB Conc 32 g/dL (31-36); Mean Corpuscular Hemoglobin 34 pg (27-31); Mean Corpuscular Volume 106 fL (80-97); Mean Platelet Volume 8.1 fL (7.4-10.4); Nucleated Red Blood Cells % 0.1; Platelet Count 55 10^3/uL (150-450); Red Blood Count 2.19 10^6 /uL (3.70-4.87); Red Cell Distribution Width 19 % (10-15); White Blood Count 14.7 10^3/uL (3.5-10.8)
[2022-06-20 05:50] LABS: Albumin 2.9 g/dL (3.2-5.2); Albumin/Globulin Ratio 1.1 (1-3); Calcium 8.6 mg/dL (8.6-10.3); Globulin 2.6 g/dL (2-4); Magnesium 1.8 mg/dL (1.9-2.7); Phosphorus 3.7 mg/dL (2.5-5.0); Potassium 2.9 mmol/L (3.5-5.0); Total Bilirubin 2.5 mg/dL (0.2-1.0); Total Protein 5.5 g/dL (6.4-8.9); eGFR CKD-EPI 40.2 (>60)
[2022-06-20] MEDS: Propofol 10 mg/ml 100 ML BTL 100 ML IV SCH ×3 (06:34→23:27)
[2022-06-20] MEDS ORDERED: Magnesium Sulfate IV 1GM/100ML 1 GM/100 ML BAG IV ONE (07:39)
[2022-06-20] MEDS ORDERED: Potassium Chloride LIQUID 20 MEQ/15 ML LIQUID PO ONE (07:47)
[2022-06-20] MEDS ORDERED: KCL 10 MEQ/50 ML IVPREMIX 10 MEQ/50 ML BAG IV ONE (07:48)
[2022-06-20] MEDS ORDERED: KCL 20 MEQ/100 ML IVPREMIX 20 MEQ/100 ML BAG IV SCH (08:00)
[2022-06-20] MEDS: methylPREDNISolone SOD SUCC 40 mg/ml 1 ml VIAL IV SCH (08:38)
[2022-06-20] MEDS: Lactulose 30 ml UDC PO SCH ×3 (08:39→20:35)
[2022-06-20] MEDS: Multivitamins ADULT w/MIN LIQ 15 ML UDC PO SCH (08:39)
[2022-06-20] MEDS ORDERED: KCL 20 MEQ/100 ML IVPREMIX 20 MEQ/100 ML BAG IV ONE (09:39)
[2022-06-20] MEDS: Thiamine 100 MG/ML 2 ml VIAL 250 MG in NS 0.9% 100 ml BAG 100 ML IV SCH (10:56)
[2022-06-20] MEDS: Saline FLUSH-CENTRAL 10 ML SYRINGE CENT\\PICC SCH (12:52)
[2022-06-20 18:56] LABS: Calcium 8.7 mg/dL (8.6-10.3); Potassium 3.2 mmol/L (3.5-5.0); eGFR CKD-EPI 51.8 (>60)
[2022-06-20] MEDS: Pantoprazole VIAL 40 MG VIAL IV SCH (20:35)
[2022-06-20] MEDS: KCL 20 MEQ/100 ML IVPREMIX 20 MEQ/100 ML BAG IV SCH (23:27)
[2022-06-21] MEDS: Propofol 10 mg/ml 100 ML BTL 100 ML IV SCH ×3 (01:28→18:25)
[2022-06-21] MEDS: Chlorhexidine MOUTHWASH 0.12% 15 ML UDC TOPICAL SCH ×6 (01:29→20:41)
[2022-06-21] MEDS: KCL 20 MEQ/100 ML IVPREMIX 20 MEQ/100 ML BAG IV SCH ×3 (01:29→10:13)
[2022-06-21] MEDS: ZOSYN 3.375 GM Q8H per EXTENDED INFUSION IV SCH ×3 (01:30→17:40)
[2022-06-21 04:43] LABS: ABS Lymphocytes 1.5 10^3/ul (1.0-4.8); ABS Monocytes 0.7 10^3/ul (0-0.8); ABS Neutrophils 17.1 10^3/ul (1.5-7.7); Hematocrit 23 % (35-47); Hemoglobin 7.3 g/dL (12.0-16.0); Lymphocyte % 7.5 %; Mean Corpuscular HGB Conc 32 g/dL (31-36); Mean Corpuscular Hemoglobin 34 pg (27-31); Mean Corpuscular Volume 106 fL (80-97); Mean Platelet Volume 9.5 fL (7.4-10.4); Platelet Count 68 10^3/uL (150-450); Red Blood Count 2.18 10^6 /uL (3.70-4.87); Red Cell Distribution Width 19 % (10-15); White Blood Count 19.3 10^3/uL (3.5-10.8)
[2022-06-21 05:05] LABS: Albumin/Globulin Ratio 1.3 (1-3); Calcium 8.7 mg/dL (8.6-10.3); Globulin 2.3 g/dL (2-4); Magnesium 1.8 mg/dL (1.9-2.7); Phosphorus 2.9 mg/dL (2.5-5.0); Potassium 3.5 mmol/L (3.5-5.0); Total Bilirubin 2.8 mg/dL (0.2-1.0); Total Protein 5.3 g/dL (6.4-8.9); eGFR CKD-EPI 60.3 (>60)
[2022-06-21] MEDS: Saline FLUSH-CENTRAL 10 ML SYRINGE CENT\\PICC SCH ×2 (06:33→12:23)
[2022-06-21] MEDS ORDERED: Potassium Chloride LIQUID 20 MEQ/15 ML LIQUID PO ONE (07:22)
[2022-06-21] MEDS ORDERED: Magnesium Sulfate 2 gm BAG 2 GM/50 ML BAG IVPB ONE (07:22)
[2022-06-21] MEDS: methylPREDNISolone SOD SUCC 40 mg/ml 1 ml VIAL IV SCH (07:44)
[2022-06-21] MEDS: Lactulose 30 ml UDC PO SCH ×3 (07:44→20:04)
[2022-06-21] MEDS: Multivitamins ADULT w/MIN LIQ 15 ML UDC PO SCH (07:44)
[2022-06-21] MEDS: Thiamine 100 MG/ML 2 ml VIAL 250 MG in NS 0.9% 100 ml BAG 100 ML IV SCH (10:12)
[2022-06-21] MEDS ORDERED: Lidocaine 1% VIAL 10 MG/ML VIAL 30 ML ONE (11:14)
[2022-06-21] MEDS ORDERED: Lidocaine 1% MPF 2 ML VIAL INJ ONE (11:37)
[2022-06-21] MEDS: Linezolid 600 MG/ 300 ML IVPB SCH (13:30)
[2022-06-21] MEDS: Pantoprazole VIAL 40 MG VIAL IV SCH (20:04)
[2022-06-21 20:38] LABS: HIT ELISA 0.073 OD (<0.400); Heparin PF4 Antibody Interp Negative (Negative)
[2022-06-22] MEDS: ZOSYN 3.375 GM Q8H per EXTENDED INFUSION IV SCH ×3 (01:29→17:53)
[2022-06-22] MEDS: Linezolid 600 MG/ 300 ML IVPB SCH (01:29)
[2022-06-22] MEDS: Propofol 10 mg/ml 100 ML BTL 100 ML IV SCH ×3 (02:10→17:44)
[2022-06-22] MEDS: Chlorhexidine MOUTHWASH 0.12% 15 ML UDC TOPICAL SCH ×6 (02:11→23:07)
[2022-06-22] MEDS: Saline FLUSH-CENTRAL 10 ML SYRINGE CENT\\PICC SCH ×2 (02:12→13:13)
[2022-06-22 05:20] LABS: Hematocrit 23 % (35-47); Hemoglobin 7.6 g/dL (12.0-16.0); Mean Corpuscular HGB Conc 32 g/dL (31-36); Mean Corpuscular Hemoglobin 34 pg (27-31); Mean Corpuscular Volume 105 fL (80-97); Mean Platelet Volume 9.2 fL (7.4-10.4); Platelet Count 57 10^3/uL (150-450); Red Blood Count 2.22 10^6 /uL (3.70-4.87); Red Cell Distribution Width 19 % (10-15); White Blood Count 20.6 10^3/uL (3.5-10.8)
[2022-06-22 05:45] LABS: Albumin/Globulin Ratio 1.3 (1-3); Calcium 8.6 mg/dL (8.6-10.3); Globulin 2.3 g/dL (2-4); Phosphorus 1.9 mg/dL (2.5-5.0); Potassium 3.6 mmol/L (3.5-5.0); Total Bilirubin 2.5 mg/dL (0.2-1.0); Total Protein 5.3 g/dL (6.4-8.9); eGFR CKD-EPI 86.4 (>60)
[2022-06-22 08:54] LABS: ABS Basophils 0.1 10^3/ul (0-0.2); ABS Lymphocytes 2.2 10^3/ul (1.0-4.8); ABS Monocytes 0.6 10^3/ul (0-0.8); ABS Neutrophils 17.7 10^3/ul (1.5-7.7); Eosinophil % 0.2 %; Lymphocyte % 10.9 %
[2022-06-22] MEDS ORDERED: KCL 20 MEQ/100 ML IVPREMIX 20 MEQ/100 ML BAG IV SCH (09:00)
[2022-06-22] MEDS ORDERED: Voriconazole 200 MG VIAL IV SCH (09:00)
[2022-06-22] MEDS: methylPREDNISolone SOD SUCC 40 mg/ml 1 ml VIAL IV SCH (09:10)
[2022-06-22] MEDS: Multivitamins ADULT w/MIN LIQ 15 ML UDC PO SCH (09:16)
[2022-06-22] MEDS: Thiamine 100 MG/ML 2 ml VIAL 250 MG in NS 0.9% 100 ml BAG 100 ML IV SCH (09:16)
[2022-06-22] MEDS: Lactulose 30 ml UDC PO SCH ×3 (09:17→21:13)
[2022-06-22] MEDS: VORICONAZOLE IVPB SCH ×2 (10:09→21:50)
[2022-06-22] MEDS: NS 0.9% IVPB SCH ×2 (10:09→21:50)
[2022-06-22] MEDS ORDERED: Potassium Phosphate IV 15 MMOLE in NS 0.9% 250 ml 250 ML IVPB ONE (10:43)
[2022-06-22] MEDS ORDERED: Sodium Phosphate IV 15 MMOLE in NS 0.9% 250 ml 250 ML IV ONE (10:53)
[2022-06-22] MEDS ORDERED: KCL 20 MEQ/100 ML IVPREMIX 20 MEQ/100 ML BAG IV ONE (11:00)
[2022-06-22] MEDS: KCL 20 MEQ/100 ML IVPREMIX 20 MEQ/100 ML BAG IV SCH ×2 (13:09→13:31)
[2022-06-22 16:47] LABS: Magnesium 1.9 mg/dL (1.9-2.7); Phosphorus 3.2 mg/dL (2.5-5.0); Potassium 4.6 mmol/L (3.5-5.0); eGFR CKD-EPI 104.2 (>60)
[2022-06-22] MEDS: Pantoprazole VIAL 40 MG VIAL IV SCH (21:13)
[2022-06-23] MEDS: Saline FLUSH-CENTRAL 10 ML SYRINGE CENT\\PICC SCH ×3 (01:02→23:11)
[2022-06-23] MEDS: ZOSYN 3.375 GM Q8H per EXTENDED INFUSION IV SCH ×3 (01:16→17:18)
[2022-06-23] MEDS: Propofol 10 mg/ml 100 ML BTL 100 ML IV SCH ×2 (01:18→07:29)
[2022-06-23] MEDS: Chlorhexidine MOUTHWASH 0.12% 15 ML UDC TOPICAL SCH ×3 (01:23→12:21)
[2022-06-23 06:33] LABS: ABS Basophils 0.1 10^3/ul (0-0.2); ABS Lymphocytes 0.9 10^3/ul (1.0-4.8); ABS Monocytes 0.6 10^3/ul (0-0.8); ABS Neutrophils 12.6 10^3/ul (1.5-7.7); Hematocrit 21 % (35-47); Hemoglobin 6.8 g/dL (12.0-16.0); Lymphocyte % 6.5 %; Mean Corpuscular HGB Conc 32 g/dL (31-36); Mean Corpuscular Hemoglobin 34 pg (27-31); Mean Corpuscular Volume 106 fL (80-97); Mean Platelet Volume 10.5 fL (7.4-10.4); Platelet Count 46 10^3/uL (150-450); Red Blood Count 1.98 10^6 /uL (3.70-4.87); Red Cell Distribution Width 19 % (10-15); White Blood Count 14.2 10^3/uL (3.5-10.8)
[2022-06-23 07:16] LABS: Albumin 2.7 g/dL (3.2-5.2); Albumin/Globulin Ratio 1.2 (1-3); Calcium 8.4 mg/dL (8.6-10.3); Globulin 2.2 g/dL (2-4); Magnesium 1.8 mg/dL (1.9-2.7); Phosphorus 3.1 mg/dL (2.5-5.0); Potassium 3.9 mmol/L (3.5-5.0); Total Protein 4.9 g/dL (6.4-8.9); eGFR CKD-EPI 106.7 (>60)
[2022-06-23] MEDS: methylPREDNISolone SOD SUCC 40 mg/ml 1 ml VIAL IV SCH (08:03)
[2022-06-23] MEDS: Lactulose 30 ml UDC PO SCH ×2 (08:03→21:18)
[2022-06-23] MEDS: Multivitamins ADULT w/MIN LIQ 15 ML UDC PO SCH (08:03)
[2022-06-23] MEDS ORDERED: Thiamine IV 100 MG/ML VIAL (only for Bannana Bags !) IVPB SCH (09:00)
[2022-06-23] MEDS ORDERED: Multivitamins ADULT w/MIN LIQ 15 ML UDC NG TUBE SCH (09:00)
[2022-06-23] MEDS ORDERED: Voriconazole 200 MG VIAL IV SCH (09:00)
[2022-06-23] MEDS ORDERED: Lactulose 30 ml UDC NG TUBE SCH (09:00)
[2022-06-23] MEDS ORDERED: Thiamine 100 MG/ML 2 ml VIAL 100 MG in NS 0.9% 50 ML 50 ML IV SCH (10:00)
[2022-06-23] MEDS: Thiamine IV 100 MG in NS 0.9% 50 ML Q24H IV SCH (10:39)
[2022-06-23] MEDS: NS 0.9% IVPB SCH ×2 (11:10→21:25)
[2022-06-23] MEDS: VORICONAZOLE IVPB SCH ×2 (11:10→21:25)
[2022-06-23] MEDS ORDERED: Magnesium Sulfate IV 1GM/100ML 1 GM/100 ML BAG IV ONE (13:28)
[2022-06-23] MEDS ORDERED: Morphine 2 MG/ML SYRINGE ONE (15:04)
[2022-06-23] MEDS: Morphine 2 MG/ML SYRINGE IV PRN (15:16)
[2022-06-23] MEDS: Pantoprazole VIAL 40 MG VIAL IV SCH (21:18)
[2022-06-24] MEDS: ZOSYN 3.375 GM Q8H per EXTENDED INFUSION IV SCH ×3 (01:00→18:08)
[2022-06-24 05:08] LABS: Hematocrit 21 % (35-47); Hemoglobin 6.8 g/dL (12.0-16.0); Mean Corpuscular HGB Conc 32 g/dL (31-36); Mean Corpuscular Hemoglobin 34 pg (27-31); Mean Corpuscular Volume 105 fL (80-97); Mean Platelet Volume 9.8 fL (7.4-10.4); Platelet Count 52 10^3/uL (150-450); Red Blood Count 2.01 10^6 /uL (3.70-4.87); Red Cell Distribution Width 19 % (10-15); White Blood Count 19.2 10^3/uL (3.5-10.8)
[2022-06-24 05:48] LABS: Calcium 8.9 mg/dL (8.6-10.3); Magnesium 2.1 mg/dL (1.9-2.7); Phosphorus 2.9 mg/dL (2.5-5.0); Potassium 3.2 mmol/L (3.5-5.0)
[2022-06-24] MEDS ORDERED: Potassium Chloride LIQUID 20 MEQ/15 ML LIQUID PO ONE ×2 (05:51→18:20)
[2022-06-24 06:37] LABS: ABS Basophils 0.1 10^3/ul (0-0.2); ABS Lymphocytes 0.8 10^3/ul (1.0-4.8); ABS Monocytes 1.1 10^3/ul (0-0.8); ABS Neutrophils 17.2 10^3/ul (1.5-7.7); Lymphocyte % 4.2 %
[2022-06-24] MEDS: methylPREDNISolone SOD SUCC 40 mg/ml 1 ml VIAL IV SCH (09:25)
[2022-06-24] MEDS: Thiamine IV 100 MG in NS 0.9% 50 ML Q24H IV SCH (09:25)
[2022-06-24] MEDS: Lactulose 30 ml UDC PO SCH ×2 (09:25→21:51)
[2022-06-24] MEDS: Multivitamins/Minerals TAB PO SCH (09:25)
[2022-06-24] MEDS: KCL 20 MEQ/100 ML IVPREMIX 20 MEQ/100 ML BAG IV SCH ×3 (09:26→14:10)
[2022-06-24] MEDS: NS 0.9% IVPB SCH ×2 (10:05→21:52)
[2022-06-24] MEDS: VORICONAZOLE IVPB SCH ×2 (10:05→21:52)
[2022-06-24 11:43] LABS: Hematocrit 23 % (35-47); Hemoglobin 7.2 g/dL (12.0-16.0)
[2022-06-24] MEDS: Saline FLUSH-CENTRAL 10 ML SYRINGE CENT\\PICC SCH (13:48)
[2022-06-24] MEDS ORDERED: KCL 20 MEQ/100 ML IVPREMIX 20 MEQ/100 ML BAG ONE (14:09)
[2022-06-24 17:42] LABS: Ferritin 2253.8 ng/mL (11-307)
[2022-06-24] MEDS ORDERED: Bumetanide IV 0.25 MG/ML 4 ml VIAL (1 mg) SLOW PUSH ONE (19:00)
[2022-06-24] MEDS ORDERED: methylPREDNISolone SOD SUCC 40 mg/ml 1 ml VIAL IV ONE (19:38)
[2022-06-24] MEDS ORDERED: Albuterol/Ipratropium NEB.SOL (2.5/0.5 MG) 3 ML NEB.SOLN INH PRN (19:39)
[2022-06-24] MEDS ORDERED: Morphine 2 MG/ML SYRINGE IV ONE (19:45)
[2022-06-24] MEDS: hydrALAZINE 20 mg/ml 1 ML Vial IV IV SLOW PU PRN (20:32)
[2022-06-24] MEDS: Pantoprazole VIAL 40 MG VIAL IV SCH (20:37)
[2022-06-24 22:56] LABS: Urine Appearance Clear; Urine Bilirubin Negative (Negative); Urine Blood 1+ (Negative); Urine Color Straw; Urine Glucose Negative (Negative); Urine Ketones Negative (Negative); Urine Nitrite Negative (Negative); Urine Protein Negative (Negative); Urine Specific Gravity 1.005 (1.002-1.030); Urine Urobilinogen Negative (Negative)
[2022-06-24 23:15] LABS: PCO2 Arterial 50 mmHg (35-45); PO2 Arterial 83 mmHg (80-100)
[2022-06-25 00:54] LABS: Urine Red Blood Cell 1+(3-5/hpf) (Absent); Urine Yeast Present (Absent)
[2022-06-25] MEDS: ZOSYN 3.375 GM Q8H per EXTENDED INFUSION IV SCH ×2 (01:29→20:27)
[2022-06-25 05:40] LABS: ABS Basophils 0.1 10^3/ul (0-0.2); ABS Lymphocytes 0.4 10^3/ul (1.0-4.8); ABS Monocytes 1.1 10^3/ul (0-0.8); ABS Neutrophils 19.2 10^3/ul (1.5-7.7); Hematocrit 23 % (35-47); Lymphocyte % 1.8 %; Mean Corpuscular HGB Conc 31 g/dL (31-36); Mean Corpuscular Hemoglobin 33 pg (27-31); Mean Corpuscular Volume 105 fL (80-97); Mean Platelet Volume 9.7 fL (7.4-10.4); Nucleated Red Blood Cells % 0.1; Platelet Count 75 10^3/uL (150-450); Red Blood Count 2.14 10^6 /uL (3.70-4.87); Red Cell Distribution Width 19 % (10-15); White Blood Count 20.8 10^3/uL (3.5-10.8)
[2022-06-25 06:19] LABS: Calcium 9.2 mg/dL (8.6-10.3); Phosphorus 3.8 mg/dL (2.5-5.0); Potassium 4.2 mmol/L (3.5-5.0)
[2022-06-25] MEDS: Lactulose 30 ml UDC PO SCH ×2 (07:29→20:28)
[2022-06-25] MEDS: Multivitamins/Minerals TAB PO SCH (07:29)
[2022-06-25] MEDS: methylPREDNISolone SOD SUCC 40 mg/ml 1 ml VIAL IV SCH ×2 (08:50→09:01)
[2022-06-25] MEDS ORDERED: Bumetanide IV 0.25 MG/ML 4 ml VIAL (1 mg) SLOW PUSH ONE (08:58)
[2022-06-25] MEDS: Thiamine IV 100 MG in NS 0.9% 50 ML Q24H IV SCH (09:05)
[2022-06-25] MEDS: NS 0.9% IVPB SCH ×2 (09:07→21:01)
[2022-06-25] MEDS: VORICONAZOLE IVPB SCH ×2 (09:07→21:01)
[2022-06-25 10:43] LABS: Folate 18.25 ng/mL (5.90-24.80)
[2022-06-25] MEDS ORDERED: Albuterol/Ipratropium NEB.SOL (2.5/0.5 MG) 3 ML NEB.SOLN INH PRN (13:32)
[2022-06-25] MEDS ORDERED: Piperacillin/Tazobac ADVAN 3.375 GM in NS 0.9% 100 ml BAG 100 ML IV ONE (14:17)
[2022-06-25] MEDS ORDERED: Zosyn per Pharmacy NOTE FOLLOW UP SCH (15:00)
[2022-06-25] MEDS: Acetylcysteine INHALATION SOL 200 MG/ML NEB.SOLN 10 ML INH SCH ×3 (16:01→23:57)
[2022-06-25] MEDS: Albuterol 2.5mg/3 ml (0.083%) NEB.SOLN INH SCH ×3 (16:02→23:57)
[2022-06-25] MEDS: Pantoprazole VIAL 40 MG VIAL IV SCH (20:27)
[2022-06-25] MEDS: Morphine 2 MG/ML SYRINGE IV PRN (20:29)
[2022-06-26] MEDS ORDERED: Bumetanide IV 0.25 MG/ML 4 ml VIAL (1 mg) SLOW PUSH ONE (01:09)
[2022-06-26] MEDS: ZOSYN 3.375 GM Q8H per EXTENDED INFUSION IV SCH ×3 (03:52→19:36)
[2022-06-26] MEDS: Albuterol 2.5mg/3 ml (0.083%) NEB.SOLN INH SCH ×3 (04:17→11:35)
[2022-06-26] MEDS: Acetylcysteine INHALATION SOL 200 MG/ML NEB.SOLN 10 ML INH SCH ×2 (04:17→08:53)
[2022-06-26 06:15] LABS: Hematocrit 21 % (35-47); Hemoglobin 6.9 g/dL (12.0-16.0); Mean Corpuscular HGB Conc 32 g/dL (31-36); Mean Corpuscular Hemoglobin 34 pg (27-31); Mean Corpuscular Volume 105 fL (80-97); Mean Platelet Volume 10.4 fL (7.4-10.4); Platelet Count 91 10^3/uL (150-450); Red Blood Count 2.03 10^6 /uL (3.70-4.87); Red Cell Distribution Width 19 % (10-15); White Blood Count 20.9 10^3/uL (3.5-10.8)
[2022-06-26 06:40] LABS: ABS Lymphocytes 0.7 10^3/ul (1.0-4.8); ABS Monocytes 1.4 10^3/ul (0-0.8); ABS Neutrophils 18.8 10^3/ul (1.5-7.7); Lymphocyte % 3.6 %; Nucleated Red Blood Cells % 0.1
[2022-06-26 07:13] LABS: Calcium 9.4 mg/dL (8.6-10.3); Magnesium 1.9 mg/dL (1.9-2.7); Phosphorus 3.8 mg/dL (2.5-5.0); Potassium 3.4 mmol/L (3.5-5.0); eGFR CKD-EPI 87.6 (>60)
[2022-06-26] MEDS: Lactulose 30 ml UDC PO SCH ×2 (08:07→19:37)
[2022-06-26] MEDS: Multivitamins/Minerals TAB PO SCH (08:07)
[2022-06-26] MEDS: Thiamine IV 100 MG in NS 0.9% 50 ML Q24H IV SCH (08:12)
[2022-06-26] MEDS: methylPREDNISolone SOD SUCC 40 mg/ml 1 ml VIAL IV SCH (08:13)
[2022-06-26] MEDS: KCL 20 MEQ/100 ML IVPREMIX 20 MEQ/100 ML BAG IV SCH ×3 (08:34→14:28)
[2022-06-26] MEDS: VORICONAZOLE IVPB SCH ×2 (11:12→19:51)
[2022-06-26] MEDS: NS 0.9% IVPB SCH ×2 (11:12→19:51)
[2022-06-26] MEDS ORDERED: Albuterol 2.5mg/3 ml (0.083%) NEB.SOLN INH SCH (13:00)
[2022-06-26] MEDS ORDERED: Albuterol 2.5mg/3 ml (0.083%) NEB.SOLN INH PRN (13:23)
[2022-06-26] MEDS: Pantoprazole VIAL 40 MG VIAL IV SCH (19:37)
[2022-06-27] MEDS: ZOSYN 3.375 GM Q8H per EXTENDED INFUSION IV SCH (03:40)
[2022-06-27 04:45] LABS: Hematocrit 22 % (35-47); Hemoglobin 7.1 g/dL (12.0-16.0); Mean Corpuscular HGB Conc 32 g/dL (31-36); Mean Corpuscular Hemoglobin 34 pg (27-31); Mean Corpuscular Volume 107 fL (80-97); Mean Platelet Volume 10.5 fL (7.4-10.4); Platelet Count 95 10^3/uL (150-450); Red Blood Count 2.09 10^6 /uL (3.70-4.87); Red Cell Distribution Width 19 % (10-15); White Blood Count 18.2 10^3/uL (3.5-10.8)
[2022-06-27 05:07] LABS: ABS Basophils 0.1 10^3/ul (0-0.2); ABS Lymphocytes 0.5 10^3/ul (1.0-4.8); ABS Monocytes 0.8 10^3/ul (0-0.8); ABS Neutrophils 16.8 10^3/ul (1.5-7.7); Lymphocyte % 2.7 %; Nucleated Red Blood Cells % 0.1
[2022-06-27 05:11] LABS: Calcium 9.7 mg/dL (8.6-10.3); Magnesium 2.1 mg/dL (1.9-2.7); eGFR CKD-EPI 90.3 (>60)
[2022-06-27] MEDS ORDERED: Albuterol HFA INHALER 8 gm MDI INH PRN (08:14)
[2022-06-27] MEDS: Multivitamins/Minerals TAB PO SCH (08:38)
[2022-06-27] MEDS: methylPREDNISolone SOD SUCC 40 mg/ml 1 ml VIAL IV SCH (08:38)
[2022-06-27] MEDS: Lactulose 30 ml UDC PO SCH (08:38)
[2022-06-27] MEDS: Thiamine IV 100 MG in NS 0.9% 50 ML Q24H IV SCH (08:38)
[2022-06-27] MEDS: NS 0.9% IVPB SCH ×2 (09:49→21:11)
[2022-06-27] MEDS: VORICONAZOLE IVPB SCH ×2 (09:49→21:11)
[2022-06-27] MEDS: Pantoprazole VIAL 40 MG VIAL IV SCH (20:22)
[2022-06-27] MEDS: hydrALAZINE 20 mg/ml 1 ML Vial IV IV SLOW PU PRN (20:22)
[2022-06-28 07:09] LABS: ABS Lymphocytes 0.6 10^3/ul (1.0-4.8); ABS Monocytes 0.6 10^3/ul (0-0.8); ABS Neutrophils 13.4 10^3/ul (1.5-7.7); Hematocrit 22 % (35-47); Hemoglobin 7.2 g/dL (12.0-16.0); Lymphocyte % 3.8 %; Mean Corpuscular HGB Conc 33 g/dL (31-36); Mean Corpuscular Hemoglobin 35 pg (27-31); Mean Corpuscular Volume 109 fL (80-97); Mean Platelet Volume 10.8 fL (7.4-10.4); Nucleated Red Blood Cells % 0.1; Platelet Count 95 10^3/uL (150-450); Red Blood Count 2.04 10^6 /uL (3.70-4.87); Red Cell Distribution Width 20 % (10-15); White Blood Count 14.6 10^3/uL (3.5-10.8)
[2022-06-28 07:18] LABS: Magnesium 2.1 mg/dL (1.9-2.7); Phosphorus 3.4 mg/dL (2.5-5.0); Potassium 3.6 mmol/L (3.5-5.0)
[2022-06-28] MEDS: Multivitamins/Minerals TAB PO SCH (08:25)
[2022-06-28] MEDS: NS 0.9% IVPB SCH ×2 (08:26→22:31)
[2022-06-28] MEDS: VORICONAZOLE IVPB SCH ×2 (08:26→22:31)
[2022-06-28] MEDS: Polyethylene Glycol 3350 17 GM PACKET PO SCH (08:26)
[2022-06-28] MEDS ORDERED: D5W 1000 ml BAG 1,000 ML IV SCH (12:00)
[2022-06-28] MEDS: Morphine 2 MG/ML SYRINGE IV PRN ×2 (12:07→17:59)
[2022-06-28] MEDS: hydrALAZINE 20 mg/ml 1 ML Vial IV IV SLOW PU PRN (16:40)
[2022-06-29] MEDS: Morphine 2 MG/ML SYRINGE IV PRN ×2 (04:01→11:04)
[2022-06-29 06:07] LABS: ABS Basophils 0.1 10^3/ul (0-0.2); ABS Eosinophils 0.2 10^3/ul (0-0.6); ABS Lymphocytes 0.6 10^3/ul (1.0-4.8); ABS Monocytes 0.3 10^3/ul (0-0.8); ABS Neutrophils 11.4 10^3/ul (1.5-7.7); Eosinophil % 1.3 %; Hematocrit 23 % (35-47); Hemoglobin 7.2 g/dL (12.0-16.0); Mean Corpuscular HGB Conc 31 g/dL (31-36); Mean Corpuscular Hemoglobin 34 pg (27-31); Mean Corpuscular Volume 108 fL (80-97); Mean Platelet Volume 9.8 fL (7.4-10.4); Nucleated Red Blood Cells % 0.1; Platelet Count 82 10^3/uL (150-450); Red Blood Count 2.14 10^6 /uL (3.70-4.87); Red Cell Distribution Width 20 % (10-15); White Blood Count 12.6 10^3/uL (3.5-10.8)
[2022-06-29 06:15] LABS: Calcium 9.3 mg/dL (8.6-10.3); Magnesium 1.7 mg/dL (1.9-2.7); Phosphorus 2.3 mg/dL (2.5-5.0); Potassium 3.4 mmol/L (3.5-5.0); eGFR CKD-EPI 111.8 (>60)
[2022-06-29] MEDS ORDERED: Potassium Chlor 20 meq TAB.ER PO ONE (07:26)
[2022-06-29] MEDS ORDERED: Potassium & Sodium Phos 250 mg = 1 PACKET PO ONE (07:28)
[2022-06-29] MEDS ORDERED: Magnesium Sulfate IV 3 GM in NS 0.9% 100 ml BAG 100 ML IVPB ONE (08:00)
[2022-06-29] MEDS ORDERED: D5W 1000 ml BAG 1,000 ML IV SCH (08:00)
[2022-06-29] MEDS: Multivitamins/Minerals TAB PO SCH (11:12)
[2022-06-29] MEDS: Polyethylene Glycol 3350 17 GM PACKET PO SCH (11:13)
[2022-06-29] MEDS: Sodium Chloride(INHALANT) 3% 4 ML NEB.SOLN INH SCH ×3 (12:29→20:23)
[2022-06-30] MEDS: Morphine 2 MG/ML SYRINGE IV PRN (00:55)
[2022-06-30] MEDS: Sodium Chloride(INHALANT) 3% 4 ML NEB.SOLN INH SCH (02:17)
[2022-06-30] MEDS ORDERED: Magnesium Sulfate 2 gm BAG 2 GM/50 ML BAG IVPB ONE (07:33)
[2022-06-30] MEDS ORDERED: Potassium Phosphate IV 15 MMOLE in NS 0.9% 250 ml 250 ML IVPB ONE (07:34)
[2022-06-30 08:00] LABS: ABS Eosinophils 0.1 10^3/ul (0-0.6); ABS Lymphocytes 0.4 10^3/ul (1.0-4.8); ABS Monocytes 0.4 10^3/ul (0-0.8); ABS Neutrophils 12.9 10^3/ul (1.5-7.7); Eosinophil % 0.8 %; Hematocrit 25 % (35-47); Hemoglobin 7.9 g/dL (12.0-16.0); Lymphocyte % 3.2 %; Mean Corpuscular HGB Conc 32 g/dL (31-36); Mean Corpuscular Hemoglobin 35 pg (27-31); Mean Corpuscular Volume 108 fL (80-97); Mean Platelet Volume 10.7 fL (7.4-10.4); Nucleated Red Blood Cells % 0.1; Platelet Count 74 10^3/uL (150-450); Red Blood Count 2.27 10^6 /uL (3.70-4.87); Red Cell Distribution Width 19 % (10-15); White Blood Count 13.9 10^3/uL (3.5-10.8)
[2022-06-30 08:34] LABS: Magnesium 2.1 mg/dL (1.9-2.7); Phosphorus 2.8 mg/dL (2.5-5.0); Potassium 3.5 mmol/L (3.5-5.0); eGFR CKD-EPI 118.5 (>60)
[2022-06-30] MEDS ORDERED: fentaNYL 100 mcg/2 ml 50 MCG/ML VIAL IV SLOW PU PRN (12:50)
[2022-06-30] MEDS: Polyethylene Glycol 3350 17 GM PACKET PO SCH (13:42)
[2022-06-30] MEDS: Multivitamins/Minerals TAB PO SCH (13:42)
[2022-06-30] MEDS ORDERED: Lactated Ringers 1000 ml BAG 1,000 ML IV SCH (18:00)
[2022-06-30] MEDS: Acetaminophen IV 1 GM/100ML 1,000 MG/100 ML BAG IV SCH (20:22)
[2022-07-01 07:15] LABS: ABS Eosinophils 0.1 10^3/ul (0-0.6); ABS Lymphocytes 0.3 10^3/ul (1.0-4.8); ABS Monocytes 0.4 10^3/ul (0-0.8); ABS Neutrophils 10.7 10^3/ul (1.5-7.7); Eosinophil % 0.8 %; Hematocrit 24 % (35-47); Hemoglobin 7.9 g/dL (12.0-16.0); Lymphocyte % 2.3 %; Mean Corpuscular HGB Conc 32 g/dL (31-36); Mean Corpuscular Hemoglobin 35 pg (27-31); Mean Corpuscular Volume 107 fL (80-97); Mean Platelet Volume 10.6 fL (7.4-10.4); Platelet Count 71 10^3/uL (150-450); Red Blood Count 2.28 10^6 /uL (3.70-4.87); Red Cell Distribution Width 19 % (10-15); White Blood Count 11.5 10^3/uL (3.5-10.8)
[2022-07-01 07:19] LABS: Calcium 8.9 mg/dL (8.6-10.3); Magnesium 1.9 mg/dL (1.9-2.7); Phosphorus 2.2 mg/dL (2.5-5.0); Potassium 3.4 mmol/L (3.5-5.0); eGFR CKD-EPI 120.5 (>60)
[2022-07-01] MEDS ORDERED: Potassium Chloride LIQUID 20 MEQ/15 ML LIQUID PO ONE ×2 (08:05→16:15)
[2022-07-01] MEDS ORDERED: NS IV ONE (08:07)
[2022-07-01] MEDS ORDERED: SODIUM PHOSPHATE IV ONE (08:07)
[2022-07-01] MEDS ORDERED: Sodium Phosphate IV 15 MMOLE in NS 0.9% 250 ml 250 ML IV ONE (08:31)
[2022-07-01] MEDS: Acetaminophen IV 1 GM/100ML 1,000 MG/100 ML BAG IV SCH ×2 (09:51→22:50)
[2022-07-01] MEDS: Multivitamins/Minerals TAB PO SCH (09:54)
[2022-07-01] MEDS: Morphine 2 MG/ML SYRINGE IV PRN ×2 (14:37→23:12)
[2022-07-01] MEDS: KCL 20 MEQ/100 ML IVPREMIX 20 MEQ/100 ML BAG IV ONE (17:52)
[2022-07-01] MEDS: Enoxaparin 40 MG/0.4 ML SYR SUBCUT SCH (17:56)
[2022-07-01] MEDS ORDERED: Potassium Chloride LIQUID 20 MEQ/15 ML LIQUID PO SCH (21:00)
[2022-07-02] MEDS ORDERED: KCL 20 MEQ/100 ML IVPREMIX 20 MEQ/100 ML BAG IV ONE (00:57)
[2022-07-02 06:57] LABS: Urine Appearance Clear; Urine Bilirubin Negative (Negative); Urine Blood Negative (Negative); Urine Color Yellow; Urine Glucose Negative (Negative); Urine Ketones Trace (Negative); Urine Nitrite Negative (Negative); Urine Protein Negative (Negative); Urine Specific Gravity 1.015 (1.002-1.030); Urine Urobilinogen Negative (Negative)
[2022-07-02] MEDS ORDERED: Potassium Phosphate IV 15 MMOLE in NS 0.9% 250 ml 250 ML IVPB ONE (09:00)
[2022-07-02] MEDS: Acetaminophen IV 1 GM/100ML 1,000 MG/100 ML BAG IV SCH (09:39)
[2022-07-02] MEDS: Senna TAB 8.6 mg TAB PO SCH (09:41)
[2022-07-02] MEDS: Multivitamins/Minerals TAB PO SCH (09:42)
[2022-07-02] MEDS ORDERED: Lidocaine PATCH 5% PATCH TRANSDERM ONE (10:55)
[2022-07-02] MEDS: Morphine 2 MG/ML SYRINGE IV PRN (13:53)
[2022-07-02] MEDS: Enoxaparin 40 MG/0.4 ML SYR SUBCUT SCH (18:55)
[2022-07-02] MEDS ORDERED: Furosemide 40 mg/4 ml IV VIAL IV ONE (20:37)
[2022-07-02] MEDS ORDERED: Furosemide 40 mg/4 ml IV VIAL ONE (20:44)
[2022-07-02] MEDS ORDERED: Succinylcholine 200 mg VIAL 20 mg/ml 10 ml VIAL (200 mg) ONE (21:15)
[2022-07-02] MEDS ORDERED: Propofol 10 mg/ml 100 ML BTL 100 ML ONE (21:15)
[2022-07-02] MEDS ORDERED: Ketamine HCL 50 mg/ml 10 ml VIAL (500 MG) ONE (21:15)
[2022-07-02] MEDS: Propofol 10 mg/ml 100 ML BTL 100 ML IV SCH (21:20)
[2022-07-02 21:48] LABS: ABS Basophils 0.1 10^3/ul (0-0.2); ABS Eosinophils 0.1 10^3/ul (0-0.6); ABS Lymphocytes 0.7 10^3/ul (1.0-4.8); ABS Monocytes 0.4 10^3/ul (0-0.8); ABS Neutrophils 6.4 10^3/ul (1.5-7.7); Eosinophil % 1.1 %; Hematocrit 24 % (35-47); Hemoglobin 7.4 g/dL (12.0-16.0); Lymphocyte % 8.7 %; Mean Corpuscular HGB Conc 31 g/dL (31-36); Mean Corpuscular Hemoglobin 34 pg (27-31); Mean Corpuscular Volume 108 fL (80-97); Mean Platelet Volume 9.8 fL (7.4-10.4); Nucleated Red Blood Cells % 0.1; Platelet Count 75 10^3/uL (150-450); Red Blood Count 2.22 10^6 /uL (3.70-4.87); Red Cell Distribution Width 19 % (10-15); White Blood Count 7.6 10^3/uL (3.5-10.8)
[2022-07-02] MEDS ORDERED: Lidocaine 2% PF 5 ML VIAL INJ ONE (21:50)
[2022-07-02 21:56] LABS: ALT 37 U/L (7-52); Albumin 2.9 g/dL (3.2-5.2); Albumin/Globulin Ratio 0.9 (1-3); Alkaline Phosphatase 799 U/L (35-149); Blood Urea Nitrogen 10 mg/dL (6-24); CO2 Carbon Dioxide 33 mmol/L (22-32); Calcium 8.6 mg/dL (8.6-10.3); Chloride 108 mmol/L (101-111); Globulin 3.1 g/dL (2-4); Glucose 118 mg/dL (70-100); eGFR CKD-EPI 117.9 (>60)
[2022-07-02 21:59] LABS: Sodium 146 mmol/L (135-145)
[2022-07-02 22:01] LABS: Anion Gap 5 mmol/L (2-11)
[2022-07-02] MEDS: Lidocaine 1% VIAL 10 MG/ML VIAL 30 ML ONE ×2 (22:25→23:53)
[2022-07-02] MEDS ORDERED: Zosyn per Pharmacy NOTE FOLLOW UP SCH (23:00)
[2022-07-02] MEDS ORDERED: Piperacillin/Tazobac ADVAN 3.375 GM in NS 0.9% 100 ml BAG 100 ML IV ONE (23:00)
[2022-07-02 23:16] LABS: PCO2 Arterial 48 mmHg (35-45); PO2 Arterial 69 mmHg (80-100)
[2022-07-02] MEDS ORDERED: fentaNYL 100 mcg/2 ml 50 MCG/ML VIAL ONE (23:23)
[2022-07-02] MEDS: fentaNYL 100 mcg/2 ml 50 MCG/ML VIAL IV SLOW PU PRN (23:54)
[2022-07-03] MEDS: Chlorhexidine MOUTHWASH 0.12% 15 ML UDC TOPICAL SCH ×7 (00:30→22:49)
[2022-07-03] MEDS: Acetaminophen IV 1 GM/100ML 1,000 MG/100 ML BAG IV SCH ×3 (02:12→22:50)
[2022-07-03] MEDS: Pantoprazole VIAL 40 MG VIAL IV SCH ×2 (02:16→22:49)
[2022-07-03 02:36] LABS: PCO2 Arterial 40 mmHg (35-45); PO2 Arterial 103 mmHg (80-100)
[2022-07-03] MEDS: fentaNYL 100 mcg/2 ml 50 MCG/ML VIAL IV SLOW PU PRN ×4 (03:06→17:24)
[2022-07-03] MEDS ORDERED: NS 0.9% 500 ml BAG 500 ML IV ONE (03:18)
[2022-07-03 03:52] LABS: Urine Appearance Cloudy; Urine Bilirubin Negative (Negative); Urine Blood Negative (Negative); Urine Color Yellow; Urine Glucose Negative (Negative); Urine Ketones Negative (Negative); Urine Nitrite Negative (Negative); Urine Protein Negative (Negative); Urine Specific Gravity 1.015 (1.002-1.030); Urine Urobilinogen Negative (Negative)
[2022-07-03] MEDS: Norepinephrine 16MCG/ML BAGD5W 4,000 MCG/250 ML BAG IV ONE (03:58)
[2022-07-03] MEDS: Propofol 10 mg/ml 100 ML BTL 100 ML IV SCH ×2 (04:20→17:00)
[2022-07-03 04:37] LABS: Calcium 7.9 mg/dL (8.6-10.3); Potassium 4.1 mmol/L (3.5-5.0)
[2022-07-03 04:40] LABS: Hematocrit 20 % (35-47); Hemoglobin 6.4 g/dL (12.0-16.0); Mean Corpuscular HGB Conc 32 g/dL (31-36); Mean Corpuscular Hemoglobin 35 pg (27-31); Mean Corpuscular Volume 108 fL (80-97); Mean Platelet Volume 11.1 fL (7.4-10.4); Platelet Count 68 10^3/uL (150-450); Red Blood Count 1.86 10^6 /uL (3.70-4.87); Red Cell Distribution Width 19 % (10-15); White Blood Count 8.3 10^3/uL (3.5-10.8)
[2022-07-03 04:42] LABS: eGFR CKD-EPI 104.2 (>60)
[2022-07-03] MEDS: ZOSYN 3.375 GM Q8H per EXTENDED INFUSION IV SCH ×3 (05:11→22:49)
[2022-07-03 05:14] LABS: ABS Lymphocytes 0.5 10^3/ul (1.0-4.8); ABS Monocytes 0.5 10^3/ul (0-0.8); ABS Neutrophils 7.2 10^3/ul (1.5-7.7); Eosinophil % 0.4 %; Lymphocyte % 5.9 %
[2022-07-03] MEDS ORDERED: D5W 500 ml BAG 500 ML IV SCH (06:00)
[2022-07-03] MEDS ORDERED: Dexmedetomidine 1,000 MCG in NS 0.9% 250 ml 240 ML IV SCH (08:00)
[2022-07-03] MEDS: Multivitamins/Minerals TAB PO SCH (09:14)
[2022-07-03] MEDS: Senna TAB 8.6 mg TAB PO SCH (09:14)
[2022-07-03 10:06] LABS: INR 1.24 (0.89-1.11)
[2022-07-03 10:24] LABS: Albumin 2.3 g/dL (3.2-5.2); Direct Bilirubin 0.7 mg/dL (0.03-0.18); Total Bilirubin 1.7 mg/dL (0.2-1.0)
[2022-07-03 10:29] LABS: Albumin/Globulin Ratio 0.9 (1-3); Globulin 2.5 g/dL (2-4); Total Protein 4.8 g/dL (6.4-8.9)
[2022-07-03 10:29] LABS: Blood Urea Nitrogen 14 mg/dL (6-24); CO2 Carbon Dioxide 29 mmol/L (22-32); Calcium 7.6 mg/dL (8.6-10.3); Chloride 111 mmol/L (101-111); Glucose 93 mg/dL (70-100); Sodium 144 mmol/L (135-145); eGFR CKD-EPI 104.2 (>60)
[2022-07-03 10:36] LABS: Anion Gap 4 mmol/L (2-11)
[2022-07-03 13:05] LABS: Hematocrit 32 % (35-47); Hemoglobin 10.4 g/dL (12.0-16.0)
[2022-07-03 13:06] LABS: Potassium, Whole Blood 3.7 mmol/L (3.4-4.5)
[2022-07-03] MEDS ORDERED: KCL 10 MEQ/50 ML IVPREMIX 10 MEQ/50 ML BAG IV ONE (15:53)
[2022-07-03] MEDS: Enoxaparin 40 MG/0.4 ML SYR SUBCUT SCH (17:03)
[2022-07-03] MEDS ORDERED: Rocuronium 50 mg VIAL 10 mg/ml 5 ml VIAL (50 mg) ONE (17:06)
[2022-07-03] MEDS ORDERED: Rocuronium 50 mg VIAL 10 mg/ml 5 ml VIAL (50 mg) IV ONE (17:27)
[2022-07-03 17:56] LABS: Mean Platelet Volume 10.6 fL (7.4-10.4); Platelet Count 63 10^3/uL (150-450)
[2022-07-04] MEDS: Chlorhexidine MOUTHWASH 0.12% 15 ML UDC TOPICAL SCH ×6 (02:46→20:18)
[2022-07-04] MEDS ORDERED: Lactated Ringers 1000 ml BAG 1,000 ML IV ONE (04:01)
[2022-07-04 05:19] LABS: Hematocrit 30 % (35-47); Hemoglobin 10.2 g/dL (12.0-16.0); Mean Corpuscular HGB Conc 35 g/dL (31-36); Mean Corpuscular Hemoglobin 34 pg (27-31); Mean Corpuscular Volume 97 fL (80-97); Platelet Count 53 10^3/uL (150-450); Red Blood Count 3.05 10^6 /uL (3.70-4.87); Red Cell Distribution Width 23 % (10-15)
[2022-07-04] MEDS: ZOSYN 3.375 GM Q8H per EXTENDED INFUSION IV SCH ×3 (05:52→23:43)
[2022-07-04 06:53] LABS: Albumin 2.1 g/dL (3.2-5.2); Albumin/Globulin Ratio 0.8 (1-3); Calcium 7.6 mg/dL (8.6-10.3); Globulin 2.7 g/dL (2-4); Magnesium 1.5 mg/dL (1.9-2.7); Potassium 3.3 mmol/L (3.5-5.0); Total Bilirubin 1.7 mg/dL (0.2-1.0); Total Protein 4.8 g/dL (6.4-8.9); eGFR CKD-EPI 99.1 (>60)
[2022-07-04] MEDS: fentaNYL 100 mcg/2 ml 50 MCG/ML VIAL IV SLOW PU PRN (07:39)
[2022-07-04] MEDS ORDERED: Potassium Chloride LIQUID 20 MEQ/15 ML LIQUID PEG TUBE ONE (07:41)
[2022-07-04] MEDS ORDERED: KCL 20 MEQ/100 ML IVPREMIX 20 MEQ/100 ML BAG IV ONE (07:41)
[2022-07-04] MEDS ORDERED: Norepinephrine 16MCG/ML BAGD5W 4,000 MCG/250 ML BAG IV ONE (07:53)
[2022-07-04] MEDS ORDERED: Norepinephrine 16MCG/ML BAGD5W 4,000 MCG/250 ML BAG IV SCH (08:00)
[2022-07-04] MEDS ORDERED: Magnesium Sulfate IV 3 GM in NS 0.9% 100 ml BAG 100 ML IVPB ONE (08:00)
[2022-07-04] MEDS: Norepinephrine 16MCG/ML BAGD5W 4,000 MCG/250 ML BAG IV ONE (08:05)
[2022-07-04] MEDS ORDERED: Senna TAB 8.6 mg TAB NG TUBE SCH (09:00)
[2022-07-04] MEDS: Multivitamins ADULT w/MIN LIQ 15 ML UDC NG TUBE SCH (10:02)
[2022-07-04] MEDS: methylPREDNISolone SOD SUCC 40 mg/ml 1 ml VIAL IV SCH ×2 (10:03→17:28)
[2022-07-04] MEDS: fentaNYL INFUSION 50 mcg/mL VL 2,500 MCG/50 ML VIAL IV SCH (10:30)
[2022-07-04] MEDS: Propofol 10 mg/ml 100 ML BTL 100 ML IV SCH ×2 (10:35→18:00)
[2022-07-04] MEDS: Acetaminophen IV 1 GM/100ML 1,000 MG/100 ML BAG IV SCH (10:43)
[2022-07-04] MEDS: Lactated Ringers 1000 ml BAG 1,000 ML IV SCH (11:00)
[2022-07-04] MEDS: Pantoprazole VIAL 40 MG VIAL IV SCH (20:18)
[2022-07-05] MEDS: Propofol 10 mg/ml 100 ML BTL 100 ML IV SCH ×4 (00:34→20:00)
[2022-07-05] MEDS: methylPREDNISolone SOD SUCC 40 mg/ml 1 ml VIAL IV SCH ×3 (01:07→20:17)
[2022-07-05] MEDS: Chlorhexidine MOUTHWASH 0.12% 15 ML UDC TOPICAL SCH ×6 (01:08→21:17)
[2022-07-05 04:23] LABS: ABS Basophils 0.1 10^3/ul (0-0.2); ABS Lymphocytes 0.8 10^3/ul (1.0-4.8); ABS Monocytes 0.3 10^3/ul (0-0.8); ABS Neutrophils 6.4 10^3/ul (1.5-7.7); Hematocrit 30 % (35-47); Hemoglobin 9.7 g/dL (12.0-16.0); Lymphocyte % 11.2 %; Mean Corpuscular HGB Conc 33 g/dL (31-36); Mean Corpuscular Hemoglobin 32 pg (27-31); Mean Corpuscular Volume 98 fL (80-97); Mean Platelet Volume 10.7 fL (7.4-10.4); Nucleated Red Blood Cells % 0.1; Platelet Count 51 10^3/uL (150-450); Red Cell Distribution Width 24 % (10-15); White Blood Count 7.5 10^3/uL (3.5-10.8)
[2022-07-05 04:56] LABS: Calcium 7.9 mg/dL (8.6-10.3); Magnesium 2.3 mg/dL (1.9-2.7); Phosphorus 3.1 mg/dL (2.5-5.0); Potassium 4.3 mmol/L (3.5-5.0); eGFR CKD-EPI 107.9 (>60)
[2022-07-05] MEDS: ZOSYN 3.375 GM Q8H per EXTENDED INFUSION IV SCH ×3 (05:34→21:17)
[2022-07-05] MEDS: Lactated Ringers 1000 ml BAG 1,000 ML IV SCH (06:25)
[2022-07-05 09:56] LABS: Albumin 2.3 g/dL (3.2-5.2); Albumin/Globulin Ratio 0.8 (1-3); Direct Bilirubin 0.6 mg/dL (0.03-0.18); Globulin 2.9 g/dL (2-4); Indirect Bilirubin 0.8 mg/dL (0.3-1.0); Total Bilirubin 1.4 mg/dL (0.2-1.0); Total Protein 5.2 g/dL (6.4-8.9)
[2022-07-05] MEDS: Multivitamins ADULT w/MIN LIQ 15 ML UDC NG TUBE SCH (10:14)
[2022-07-05] MEDS: Lactulose 30 ml UDC NG TUBE SCH ×2 (10:14→20:17)
[2022-07-05] MEDS ORDERED: Acetylcysteine INHALATION SOL 200 MG/ML NEB.SOLN 10 ML INH ONE (10:15)
[2022-07-05] MEDS ORDERED: Rocuronium 50 mg VIAL 10 mg/ml 5 ml VIAL (50 mg) IV ONE ×2 (10:53→10:54)
[2022-07-05] MEDS: Furosemide 20 mg/2 ml IV VIAL IV SCH (15:37)
[2022-07-05] MEDS: Pantoprazole VIAL 40 MG VIAL IV SCH (21:17)
[2022-07-05] MEDS: fentaNYL INFUSION 50 mcg/mL VL 2,500 MCG/50 ML VIAL IV SCH (23:50)
[2022-07-06] MEDS: Chlorhexidine MOUTHWASH 0.12% 15 ML UDC TOPICAL SCH ×4 (01:49→13:26)
[2022-07-06] MEDS: Propofol 10 mg/ml 100 ML BTL 100 ML IV SCH ×2 (01:49→07:40)
[2022-07-06] MEDS: ZOSYN 3.375 GM Q8H per EXTENDED INFUSION IV SCH ×3 (05:21→21:12)
[2022-07-06 05:50] LABS: Hematocrit 28 % (35-47); Hemoglobin 8.9 g/dL (12.0-16.0); Mean Corpuscular HGB Conc 32 g/dL (31-36); Mean Corpuscular Hemoglobin 32 pg (27-31); Mean Corpuscular Volume 99 fL (80-97); Mean Platelet Volume 10.3 fL (7.4-10.4); Platelet Count 58 10^3/uL (150-450); Red Cell Distribution Width 22 % (10-15); White Blood Count 9.2 10^3/uL (3.5-10.8)
[2022-07-06 06:35] LABS: Calcium 8.1 mg/dL (8.6-10.3); Magnesium 2.1 mg/dL (1.9-2.7); Phosphorus 3.8 mg/dL (2.5-5.0); Potassium 4.3 mmol/L (3.5-5.0); eGFR CKD-EPI 100.8 (>60)
[2022-07-06] MEDS: Lactulose 30 ml UDC NG TUBE SCH (07:41)
[2022-07-06] MEDS: Multivitamins ADULT w/MIN LIQ 15 ML UDC NG TUBE SCH (07:41)
[2022-07-06] MEDS: methylPREDNISolone SOD SUCC 40 mg/ml 1 ml VIAL IV SCH (07:42)
[2022-07-06] MEDS: Furosemide 20 mg/2 ml IV VIAL IV SCH (07:42)
[2022-07-06] MEDS ORDERED: Furosemide 20 mg/2 ml IV VIAL IV ONE (08:53)
[2022-07-06 09:05] LABS: ABS Basophils 0.1 10^3/ul (0-0.2); ABS Monocytes 0.3 10^3/ul (0-0.8); ABS Neutrophils 7.7 10^3/ul (1.5-7.7); Anisocytosis 2+; Lymphocyte % 11.2 %
[2022-07-06 12:22] LABS: PCO2 Arterial 42 mmHg (35-45); PO2 Arterial 73 mmHg (80-100)
[2022-07-06] MEDS ORDERED: Lactulose 30 ml UDC NG TUBE SCH (13:00)
[2022-07-06] MEDS ORDERED: Acetaminophen IV 1 GM/100ML 1,000 MG/100 ML BAG IV ONE (13:59)
[2022-07-06] MEDS ORDERED: Dexmedetomidine 1,000 MCG in NS 0.9% 250 ml 240 ML IV SCH (14:00)
[2022-07-06] MEDS ORDERED: fentaNYL 100 mcg/2 ml 50 MCG/ML VIAL IV SLOW PU ONE ×2 (14:27→15:04)
[2022-07-06] MEDS: Lactulose 30 ml UDC PO SCH ×2 (18:33→20:54)
[2022-07-06] MEDS ORDERED: Metoprolol Tartrate 5 mg VIAL 5 ml VIAL (1 mg/ml) IV PRN (19:15)
[2022-07-06] MEDS: Pantoprazole VIAL 40 MG VIAL IV SCH (21:09)
[2022-07-07] MEDS ORDERED: Acetaminophen IV 1 GM/100ML 1,000 MG/100 ML BAG IV PRN (02:49)
[2022-07-07 05:25] LABS: Hematocrit 31 % (35-47); Hemoglobin 9.9 g/dL (12.0-16.0); Mean Corpuscular HGB Conc 32 g/dL (31-36); Mean Corpuscular Hemoglobin 31 pg (27-31); Mean Corpuscular Volume 98 fL (80-97); Mean Platelet Volume 9.8 fL (7.4-10.4); Platelet Count 55 10^3/uL (150-450); Red Blood Count 3.16 10^6 /uL (3.70-4.87); Red Cell Distribution Width 21 % (10-15); White Blood Count 8.3 10^3/uL (3.5-10.8)
[2022-07-07] MEDS: ZOSYN 3.375 GM Q8H per EXTENDED INFUSION IV SCH ×3 (05:29→21:04)
[2022-07-07] MEDS ORDERED: Morphine 2 MG/ML SYRINGE IV ONE (05:45)
[2022-07-07 06:04] LABS: Calcium 8.6 mg/dL (8.6-10.3); Magnesium 1.8 mg/dL (1.9-2.7); Phosphorus 3.3 mg/dL (2.5-5.0); Potassium 3.3 mmol/L (3.5-5.0); eGFR CKD-EPI 109.1 (>60)
[2022-07-07] MEDS ORDERED: Magnesium Sulfate 2 gm BAG 2 GM/50 ML BAG IVPB ONE ×2 (06:09→07:39)
[2022-07-07] MEDS: Saline FLUSH-CENTRAL 10 ML SYRINGE CENT\\PICC SCH ×2 (07:50→18:16)
[2022-07-07] MEDS ORDERED: KCL 20 MEQ/100 ML IVPREMIX 20 MEQ/100 ML BAG IV SCH (08:00)
[2022-07-07] MEDS ORDERED: Lorazepam PYXIS KEY PRN (08:48)
[2022-07-07] MEDS: KCL 20 MEQ/100 ML IVPREMIX 20 MEQ/100 ML BAG IV SCH ×2 (08:59→10:11)
[2022-07-07] MEDS: Furosemide 20 mg/2 ml IV VIAL IV SCH (09:04)
[2022-07-07 09:50] LABS: ABS Lymphocytes 1.6 10^3/ul (1.0-4.8); ABS Monocytes 0.5 10^3/ul (0-0.8); ABS Neutrophils 6.1 10^3/ul (1.5-7.7); Eosinophil % 0.1 %; Lymphocyte % 19.3 %; Nucleated Red Blood Cells % 0.1
[2022-07-07] MEDS: Morphine 2 MG/ML SYRINGE IV PRN (10:15)
[2022-07-07] MEDS: Multivitamins ADULT w/MIN LIQ 15 ML UDC PO SCH (11:01)
[2022-07-07] MEDS: KCL 20 MEQ/100 ML IVPREMIX 20 MEQ/100 ML BAG IV ONE (11:44)
[2022-07-07] MEDS: Lactulose 30 ml UDC PO SCH ×4 (11:46→21:09)
[2022-07-07] MEDS ORDERED: LORazepam 2 mg VIAL 1 ml IV PUSH ONE (20:00)
[2022-07-07] MEDS: Pantoprazole VIAL 40 MG VIAL IV SCH (21:04)
[2022-07-08] MEDS: Morphine 2 MG/ML SYRINGE IV PRN (03:15)
[2022-07-08 05:29] LABS: ABS Lymphocytes 1.4 10^3/ul (1.0-4.8); ABS Monocytes 0.3 10^3/ul (0-0.8); ABS Neutrophils 4.3 10^3/ul (1.5-7.7); Eosinophil % 0.2 %; Hematocrit 31 % (35-47); Lymphocyte % 22.9 %; Mean Corpuscular HGB Conc 32 g/dL (31-36); Mean Corpuscular Hemoglobin 31 pg (27-31); Mean Corpuscular Volume 97 fL (80-97); Mean Platelet Volume 9.1 fL (7.4-10.4); Platelet Count 62 10^3/uL (150-450); Red Cell Distribution Width 22 % (10-15)
[2022-07-08 05:49] LABS: Calcium 8.8 mg/dL (8.6-10.3); Potassium 3.5 mmol/L (3.5-5.0); eGFR CKD-EPI 108.7 (>60)
[2022-07-08] MEDS: ZOSYN 3.375 GM Q8H per EXTENDED INFUSION IV SCH ×3 (06:25→21:20)
[2022-07-08] MEDS: Saline FLUSH-CENTRAL 10 ML SYRINGE CENT\\PICC SCH ×2 (06:27→17:37)
[2022-07-08] MEDS: Multivitamins ADULT w/MIN LIQ 15 ML UDC PO SCH (07:50)
[2022-07-08] MEDS: KCL 20 MEQ/100 ML IVPREMIX 20 MEQ/100 ML BAG IV SCH ×2 (07:50→11:08)
[2022-07-08] MEDS: Furosemide 20 mg/2 ml IV VIAL IV SCH (07:50)
[2022-07-08] MEDS: Lactulose 30 ml UDC PO SCH ×4 (07:50→21:18)
[2022-07-08] MEDS ORDERED: Voriconazole 200 MG VIAL IV SCH (10:00)
[2022-07-08] MEDS ORDERED: Furosemide 40 mg/4 ml IV VIAL IV SLOW PU ONE (10:21)
[2022-07-08] MEDS: VORICONAZOLE IVPB SCH ×2 (11:08→22:21)
[2022-07-08] MEDS: NS 0.9% IVPB SCH ×2 (11:08→22:21)
[2022-07-08] MEDS: Albuterol/Ipratropium NEB.SOL (2.5/0.5 MG) 3 ML NEB.SOLN INH SCH ×3 (13:52→19:43)
[2022-07-08] MEDS: Pantoprazole VIAL 40 MG VIAL IV SCH (21:18)
[2022-07-09 05:39] LABS: ABS Basophils 0.1 10^3/ul (0-0.2); ABS Lymphocytes 1.8 10^3/ul (1.0-4.8); ABS Monocytes 0.3 10^3/ul (0-0.8); ABS Neutrophils 3.9 10^3/ul (1.5-7.7); Eosinophil % 0.7 %; Hematocrit 31 % (35-47); Hemoglobin 10.2 g/dL (12.0-16.0); Lymphocyte % 29.7 %; Mean Corpuscular HGB Conc 33 g/dL (31-36); Mean Corpuscular Hemoglobin 32 pg (27-31); Mean Corpuscular Volume 97 fL (80-97); Mean Platelet Volume 8.9 fL (7.4-10.4); Nucleated Red Blood Cells % 0.1; Platelet Count 76 10^3/uL (150-450); Red Blood Count 3.15 10^6 /uL (3.70-4.87); Red Cell Distribution Width 21 % (10-15); White Blood Count 6.2 10^3/uL (3.5-10.8)
[2022-07-09 06:16] LABS: Calcium 8.8 mg/dL (8.6-10.3); Magnesium 1.8 mg/dL (1.9-2.7); Potassium 3.5 mmol/L (3.5-5.0); eGFR CKD-EPI 109.5 (>60)
[2022-07-09] MEDS ORDERED: Magnesium Sulfate 2 gm BAG 2 GM/50 ML BAG IVPB ONE (07:01)
[2022-07-09] MEDS: ZOSYN 3.375 GM Q8H per EXTENDED INFUSION IV SCH ×3 (07:09→21:07)
[2022-07-09] MEDS: Saline FLUSH-CENTRAL 10 ML SYRINGE CENT\\PICC SCH ×2 (07:09→18:14)
[2022-07-09] MEDS: Albuterol/Ipratropium NEB.SOL (2.5/0.5 MG) 3 ML NEB.SOLN INH SCH ×2 (07:17→19:16)
[2022-07-09] MEDS: KCL 20 MEQ/100 ML IVPREMIX 20 MEQ/100 ML BAG IV SCH ×3 (07:24→13:56)
[2022-07-09] MEDS: Multivitamins ADULT w/MIN LIQ 15 ML UDC PO SCH (08:40)
[2022-07-09] MEDS: Furosemide 20 mg/2 ml IV VIAL IV SCH (08:41)
[2022-07-09] MEDS ORDERED: Lactulose 30 ml UDC PO SCH (09:00)
[2022-07-09 10:15] LABS: PCO2 Arterial 37 mmHg (35-45); PO2 Arterial 96 mmHg (80-100)
[2022-07-09] MEDS: NS 0.9% IVPB SCH ×2 (10:50→21:08)
[2022-07-09] MEDS: VORICONAZOLE IVPB SCH ×2 (10:50→21:08)
[2022-07-09] MEDS: Lactulose 30 ml UDC PO SCH ×3 (12:23→20:54)
[2022-07-09 16:59] LABS: Albumin 2.5 g/dL (3.2-5.2); Albumin/Globulin Ratio 0.8 (1-3); Direct Bilirubin 0.7 mg/dL (0.03-0.18); Globulin 3.1 g/dL (2-4); Indirect Bilirubin 0.8 mg/dL (0.3-1.0); Total Bilirubin 1.5 mg/dL (0.2-1.0); Total Protein 5.6 g/dL (6.4-8.9)
[2022-07-09] MEDS: Pantoprazole VIAL 40 MG VIAL IV SCH (20:53)
[2022-07-09] MEDS ORDERED: Haloperidol 5 mg/ml SDV IV/IM 5 MG/ML AMP IV SLOW PU ONE (22:29)
[2022-07-10] MEDS: Saline FLUSH-CENTRAL 10 ML SYRINGE CENT\\PICC SCH ×2 (04:56→18:30)
[2022-07-10 05:05] LABS: ABS Basophils 0.1 10^3/ul (0-0.2); ABS Lymphocytes 1.9 10^3/ul (1.0-4.8); ABS Monocytes 0.3 10^3/ul (0-0.8); ABS Neutrophils 3.6 10^3/ul (1.5-7.7); Eosinophil % 0.3 %; Hematocrit 30 % (35-47); Hemoglobin 9.9 g/dL (12.0-16.0); Lymphocyte % 32.1 %; Mean Corpuscular HGB Conc 34 g/dL (31-36); Mean Corpuscular Hemoglobin 32 pg (27-31); Mean Corpuscular Volume 97 fL (80-97); Platelet Count 84 10^3/uL (150-450); Red Blood Count 3.05 10^6 /uL (3.70-4.87); Red Cell Distribution Width 22 % (10-15); White Blood Count 5.9 10^3/uL (3.5-10.8)
[2022-07-10 05:33] LABS: Albumin 2.5 g/dL (3.2-5.2); Albumin/Globulin Ratio 0.8 (1-3); Calcium 9.1 mg/dL (8.6-10.3); Direct Bilirubin 0.6 mg/dL (0.03-0.18); Globulin 3.2 g/dL (2-4); Indirect Bilirubin 0.9 mg/dL (0.3-1.0); Magnesium 1.8 mg/dL (1.9-2.7); Potassium 3.7 mmol/L (3.5-5.0); Total Bilirubin 1.5 mg/dL (0.2-1.0); Total Protein 5.7 g/dL (6.4-8.9); eGFR CKD-EPI 109.1 (>60)
[2022-07-10] MEDS ORDERED: Magnesium Sulf 4 GM/100 ML IV 4,000 MG/100 ML BAG IVPB ONE (05:50)
[2022-07-10] MEDS: Albuterol/Ipratropium NEB.SOL (2.5/0.5 MG) 3 ML NEB.SOLN INH SCH ×2 (07:12→19:36)
[2022-07-10] MEDS: Lactulose 30 ml UDC PO SCH ×4 (08:27→21:31)
[2022-07-10] MEDS: Multivitamins ADULT w/MIN LIQ 15 ML UDC PO SCH (08:27)
[2022-07-10] MEDS: KCL 20 MEQ/100 ML IVPREMIX 20 MEQ/100 ML BAG IV SCH ×2 (08:28→11:24)
[2022-07-10] MEDS: Enoxaparin 40 MG/0.4 ML SYR SUBCUT SCH (11:24)
[2022-07-10] MEDS: NS 0.9% IVPB SCH ×2 (11:54→21:34)
[2022-07-10] MEDS: VORICONAZOLE IVPB SCH ×2 (11:54→21:34)
[2022-07-10] MEDS: Pantoprazole VIAL 40 MG VIAL IV SCH (21:31)
[2022-07-11] MEDS: Saline FLUSH-CENTRAL 10 ML SYRINGE CENT\\PICC SCH ×2 (05:00→20:26)
[2022-07-11 05:09] LABS: INR 1.03 (0.89-1.11)
[2022-07-11 06:00] LABS: Albumin 2.6 g/dL (3.2-5.2); Albumin/Globulin Ratio 0.8 (1-3); Calcium 9.1 mg/dL (8.6-10.3); Globulin 3.2 g/dL (2-4); Potassium 3.6 mmol/L (3.5-5.0); Total Bilirubin 1.3 mg/dL (0.2-1.0); Total Protein 5.8 g/dL (6.4-8.9); eGFR CKD-EPI 113.3 (>60)
[2022-07-11] MEDS ORDERED: Potassium Chloride LIQUID 20 MEQ/15 ML LIQUID PO ONE (06:17)
[2022-07-11] MEDS: Albuterol/Ipratropium NEB.SOL (2.5/0.5 MG) 3 ML NEB.SOLN INH SCH ×2 (07:26→19:12)
[2022-07-11] MEDS: Lactulose 30 ml UDC PO SCH ×3 (07:40→20:34)
[2022-07-11] MEDS: Multivitamins ADULT w/MIN LIQ 15 ML UDC PO SCH (07:40)
[2022-07-11] MEDS: Morphine 2 MG/ML SYRINGE IV PRN (11:23)
[2022-07-11] MEDS: Enoxaparin 40 MG/0.4 ML SYR SUBCUT SCH (11:23)
[2022-07-11] MEDS: NS 0.9% IVPB SCH ×2 (11:54→23:02)
[2022-07-11] MEDS: VORICONAZOLE IVPB SCH ×2 (11:54→23:02)
[2022-07-11] MEDS ORDERED: Haloperidol 5 mg/ml SDV IV/IM 5 MG/ML AMP IV SLOW PU PRN (12:27)
[2022-07-11 15:29] LABS: ABS Monocytes 0.2 10^3/ul (0-0.8); ABS Neutrophils 3.8 10^3/ul (1.5-7.7); Eosinophil % 0.1 %; Hematocrit 31 % (35-47); Hemoglobin 10.1 g/dL (12.0-16.0); Lymphocyte % 20.2 %; Mean Corpuscular HGB Conc 33 g/dL (31-36); Mean Corpuscular Hemoglobin 31 pg (27-31); Mean Corpuscular Volume 96 fL (80-97); Mean Platelet Volume 9.2 fL (7.4-10.4); Nucleated Red Blood Cells % 0.1; Platelet Count 118 10^3/uL (150-450); Red Blood Count 3.23 10^6 /uL (3.70-4.87); Red Cell Distribution Width 21 % (10-15)
[2022-07-11] MEDS: Pantoprazole VIAL 40 MG VIAL IV SCH (20:26)
[2022-07-12 04:53] LABS: ABS Basophils 0.1 10^3/ul (0-0.2); ABS Lymphocytes 1.9 10^3/ul (1.0-4.8); ABS Monocytes 0.3 10^3/ul (0-0.8); ABS Neutrophils 4.2 10^3/ul (1.5-7.7); Eosinophil % 0.1 %; Hematocrit 31 % (35-47); Hemoglobin 10.3 g/dL (12.0-16.0); Lymphocyte % 29.8 %; Mean Corpuscular HGB Conc 33 g/dL (31-36); Mean Corpuscular Hemoglobin 32 pg (27-31); Mean Corpuscular Volume 97 fL (80-97); Mean Platelet Volume 9.4 fL (7.4-10.4); Platelet Count 121 10^3/uL (150-450); Red Blood Count 3.22 10^6 /uL (3.70-4.87); Red Cell Distribution Width 21 % (10-15); White Blood Count 6.4 10^3/uL (3.5-10.8)
[2022-07-12 05:18] LABS: Calcium 9.6 mg/dL (8.6-10.3); Magnesium 1.7 mg/dL (1.9-2.7); Phosphorus 3.7 mg/dL (2.5-5.0); Potassium 3.4 mmol/L (3.5-5.0); eGFR CKD-EPI 107.9 (>60)
[2022-07-12] MEDS: Saline FLUSH-CENTRAL 10 ML SYRINGE CENT\\PICC SCH ×2 (06:15→19:29)
[2022-07-12] MEDS ORDERED: Albuterol/Ipratropium NEB.SOL (2.5/0.5 MG) 3 ML NEB.SOLN INH PRN (06:51)
[2022-07-12] MEDS ORDERED: Potassium Chloride LIQUID 20 MEQ/15 ML LIQUID PO ONE (07:16)
[2022-07-12] MEDS ORDERED: Magnesium Sulfate 2 gm BAG 2 GM/50 ML BAG IVPB ONE (07:16)
[2022-07-12] MEDS: Lactulose 30 ml UDC PO SCH ×3 (08:41→21:38)
[2022-07-12] MEDS: Multivitamins ADULT w/MIN LIQ 15 ML UDC PO SCH (08:51)
[2022-07-12] MEDS: Enoxaparin 40 MG/0.4 ML SYR SUBCUT SCH (11:03)
[2022-07-12] MEDS: NS 0.9% IVPB SCH ×2 (11:06→22:17)
[2022-07-12] MEDS: Morphine 2 MG/ML SYRINGE IV PRN ×2 (11:06→21:47)
[2022-07-12] MEDS: VORICONAZOLE IVPB SCH ×2 (11:06→22:17)
[2022-07-12] MEDS: Pantoprazole VIAL 40 MG VIAL IV SCH (21:38)
[2022-07-13] MEDS: Saline FLUSH-CENTRAL 10 ML SYRINGE CENT\\PICC SCH ×2 (05:20→18:00)
[2022-07-13 05:23] LABS: ABS Lymphocytes 1.2 10^3/ul (1.0-4.8); ABS Monocytes 0.2 10^3/ul (0-0.8); ABS Neutrophils 3.1 10^3/ul (1.5-7.7); Eosinophil % 0.3 %; Hematocrit 27 % (35-47); Mean Corpuscular HGB Conc 33 g/dL (31-36); Mean Corpuscular Hemoglobin 32 pg (27-31); Mean Corpuscular Volume 97 fL (80-97); Mean Platelet Volume 8.8 fL (7.4-10.4); Nucleated Red Blood Cells % 0.1; Platelet Count 115 10^3/uL (150-450); Red Blood Count 2.83 10^6 /uL (3.70-4.87); Red Cell Distribution Width 21 % (10-15); White Blood Count 4.6 10^3/uL (3.5-10.8)
[2022-07-13 05:54] LABS: Calcium 9.2 mg/dL (8.6-10.3); Phosphorus 4.5 mg/dL (2.5-5.0); Potassium 3.4 mmol/L (3.5-5.0)
[2022-07-13] MEDS ORDERED: Potassium Chlor 20 meq TAB.ER PO ONE (07:32)
[2022-07-13] MEDS: Lactulose 30 ml UDC PO SCH ×3 (08:48→22:29)
[2022-07-13] MEDS: Enoxaparin 40 MG/0.4 ML SYR SUBCUT SCH (09:44)
[2022-07-13] MEDS: NS 0.9% IVPB SCH (11:49)
[2022-07-13] MEDS: Multivitamins ADULT w/MIN LIQ 15 ML UDC PO SCH (11:49)
[2022-07-13] MEDS: VORICONAZOLE IVPB SCH (11:49)
[2022-07-13] MEDS: Morphine 2 MG/ML SYRINGE IV PRN (17:26)
[2022-07-13] MEDS: Pantoprazole VIAL 40 MG VIAL IV SCH (22:27)
[2022-07-14] MEDS: Morphine 2 MG/ML SYRINGE IV PRN ×2 (05:28→10:01)
[2022-07-14] MEDS: Saline FLUSH-CENTRAL 10 ML SYRINGE CENT\\PICC SCH ×2 (05:32→20:47)
[2022-07-14 05:52] LABS: ABS Lymphocytes 2.7 10^3/ul (1.0-4.8); ABS Monocytes 0.5 10^3/ul (0-0.8); ABS Neutrophils 5.8 10^3/ul (1.5-7.7); Eosinophil % 0.3 %; Hematocrit 29 % (35-47); Hemoglobin 9.9 g/dL (12.0-16.0); Lymphocyte % 30.1 %; Mean Corpuscular HGB Conc 35 g/dL (31-36); Mean Corpuscular Hemoglobin 33 pg (27-31); Mean Corpuscular Volume 96 fL (80-97); Mean Platelet Volume 8.8 fL (7.4-10.4); Nucleated Red Blood Cells % 0.1; Platelet Count 149 10^3/uL (150-450); Red Blood Count 2.98 10^6 /uL (3.70-4.87); Red Cell Distribution Width 21 % (10-15); White Blood Count 9.1 10^3/uL (3.5-10.8)
[2022-07-14 06:20] LABS: Calcium 8.8 mg/dL (8.6-10.3); Magnesium 1.4 mg/dL (1.9-2.7); Potassium 4.5 mmol/L (3.5-5.0); eGFR CKD-EPI 106.3 (>60)
[2022-07-14] MEDS ORDERED: Magnesium Sulfate IV 3 GM in NS 0.9% 100 ml BAG 100 ML IVPB ONE (07:17)
[2022-07-14] MEDS: Multivitamins ADULT w/MIN LIQ 15 ML UDC PO SCH (10:07)
[2022-07-14] MEDS: Enoxaparin 40 MG/0.4 ML SYR SUBCUT SCH (10:11)
[2022-07-14] MEDS: Lactulose 30 ml UDC PO SCH ×3 (10:11→21:56)
[2022-07-14] MEDS ORDERED: Potassium Phosphate IV 15 MMOLE in NS 0.9% 250 ml 250 ML IVPB ONE (11:38)
[2022-07-14 11:40] VITALS: BP 98/62
[2022-07-14] MEDS ORDERED: Morphine ORAL CONCENTRATE 5 MG/0.25 ML ORAL.SYRIN SL PRN (14:48)
[2022-07-14] MEDS ORDERED: Ondansetron ODT 4 mg TAB 4 MG TAB SL PRN (14:48)
[2022-07-15] MEDS: Morphine ORAL CONCENTRATE 5 MG/0.25 ML ORAL.SYRIN SL PRN ×6 (02:30→22:10)
[2022-07-15] MEDS: Saline FLUSH-CENTRAL 10 ML SYRINGE CENT\\PICC SCH ×2 (06:10→18:32)
[2022-07-15] MEDS ORDERED: CMCS:Oral Rinse (Biotene)(NF) 237 ML or 473 ML ORAL RINSE BTL MT SCH (14:00)
[2022-07-15] MEDS: Lactulose 30 ml UDC PO SCH ×4 (14:18→20:48)
[2022-07-15] MEDS: Senna TAB 8.6 mg TAB PO SCH (14:19)
[2022-07-16] MEDS: Morphine ORAL CONCENTRATE 5 MG/0.25 ML ORAL.SYRIN SL PRN ×6 (00:13→23:50)
[2022-07-16] MEDS ORDERED: Morphine ORAL CONCENTRATE 5 MG/0.25 ML ORAL.SYRIN SL ONE (02:02)
[2022-07-16] MEDS: Saline FLUSH-CENTRAL 10 ML SYRINGE CENT\\PICC SCH ×2 (06:19→20:08)
[2022-07-16] MEDS: Senna TAB 8.6 mg TAB PO SCH (11:49)
[2022-07-16] MEDS: Lactulose 30 ml UDC PO SCH ×3 (11:49→20:02)
[2022-07-17] MEDS: Morphine ORAL CONCENTRATE 5 MG/0.25 ML ORAL.SYRIN SL PRN (06:10)
[2022-07-17] MEDS: Saline FLUSH-CENTRAL 10 ML SYRINGE CENT\\PICC SCH ×2 (06:12→17:36)
[2022-07-17] MEDS ORDERED: Lactulose 30 ml UDC PO PRN (08:43)
[2022-07-17] MEDS: Senna TAB 8.6 mg TAB PO SCH (08:56)
[2022-07-17] MEDS ORDERED: Lorazepam PYXIS KEY PRN (15:24)
[2022-07-17] MEDS ORDERED: Ondansetron 4 mg VIAL 2 MG/ML 2 ml VIAL IV PRN (15:25)
[2022-07-17] MEDS: Scopolamine 1 mg/72hr PATCH TRANSDERM SCH (16:48)
[2022-07-17] MEDS: Morphine 2 MG/ML SYRINGE IV PRN ×2 (16:49→21:25)
[2022-07-17] MEDS: LORazepam 2 mg VIAL 1 ml IV PUSH PRN ×2 (16:49→21:30)
[2022-07-18] MEDS: Morphine 2 MG/ML SYRINGE IV PRN ×4 (01:12→09:22)
[2022-07-18] MEDS: LORazepam 2 mg VIAL 1 ml IV PUSH PRN ×3 (01:13→07:01)
[2022-07-18] MEDS: Saline FLUSH-CENTRAL 10 ML SYRINGE CENT\\PICC SCH ×2 (08:31→18:21)
[2022-07-18] MEDS ORDERED: LORazepam 2 mg VIAL 1 ml IV PUSH PRN (09:19)
[2022-07-18] MEDS ORDERED: Lorazepam PYXIS KEY PRN (13:09)
[2022-07-18] MEDS: Morphine 2 MG/ML SYRINGE IV SCH ×3 (13:19→23:34)
[2022-07-18] MEDS: LORazepam 2 mg VIAL 1 ml IV PUSH SCH ×3 (16:12→20:59)
[2022-07-19] MEDS: LORazepam 2 mg VIAL 1 ml IV PUSH SCH ×6 (02:11→22:54)
[2022-07-19] MEDS: Morphine 2 MG/ML SYRINGE IV SCH ×7 (04:32→23:05)
[2022-07-19] MEDS: Saline FLUSH-CENTRAL 10 ML SYRINGE CENT\\PICC SCH ×2 (09:04→17:11)
[2022-07-19] MEDS: Morphine 2 MG/ML SYRINGE IV PRN (15:35)
[2022-07-20] MEDS: Morphine 2 MG/ML SYRINGE IV PRN (01:05)
[2022-07-20] MEDS: LORazepam 2 mg VIAL 1 ml IV PUSH SCH ×6 (02:55→23:39)
[2022-07-20] MEDS: Morphine 2 MG/ML SYRINGE IV SCH ×4 (04:55→16:55)
[2022-07-20] MEDS: Saline FLUSH-CENTRAL 10 ML SYRINGE CENT\\PICC SCH ×2 (05:23→17:14)
[2022-07-20] MEDS: Morphine ORAL CONCENTRATE 5 MG/0.25 ML ORAL.SYRIN SL PRN ×13 (06:17→23:41)
[2022-07-20] MEDS: Scopolamine 1 mg/72hr PATCH TRANSDERM SCH (16:03)
[2022-07-20] MEDS ORDERED: Morphine 2 MG/ML SYRINGE IV SCH (21:00)
== END 2022-07-21 01:10 | disposition expired | DRG 130 ==
LOC: ED 06:30 → EDHOLD 09:04 → SUATTDRO 09:04 → ICU 09:57 → MED 06-27 09:45 → ICU 07-02 21:07 → SSU 07-12 17:25
PROVIDERS: ADMIT Internal Medicine Critical Care Medicine; ATTEND Internal Medicine